=== PATIENT | male | born 1965 | race African-American/Black ===

== ENCOUNTER 2017-01-17 14:51 | Emergency (ER) | payer OTHER ==
[2017-01-17] MEDS ORDERED: Mag-Al 1200 mg/1200 mg/30 ML UDCUP ONE (15:13)
[2017-01-17] MEDS ORDERED: Famotidine/PF 20 mg/2ml Vial ONE (15:13)
[2017-01-17] MEDS ORDERED: Ondansetron HCl/PF 4 MG/2 ML Vial ONE (15:13)
[2017-01-17] MEDS ORDERED: Lidocaine Viscous Sol 2% 15 ml UD Cup ONE (15:13)
[2017-01-17 15:22] LABS: #Basophils 0.1 thou/uL (0.0-0.2); #Eosinphils 0.1 thou/uL (0.0-0.7); #Lymphocytes 1.8 thou/uL (1.20-3.40); #Monocytes 0.5 thou/uL (0.11-0.59); #Neutrophils 3.9 thou/uL (1.40-6.50); %Basophils 1.1 % (0.0-1.0); %Eosinophils 1.3 % (0.0-10.0); %Lymphocytes 28.2 % (21.0-51.0); %Monocytes 7.3 % (0.0-10.0); Hematocrit 40.5 % (42.0-52.0); Mean Platelet Volume 6.1 fL (7.4-10.4); Red Blood Cell (RBC) Count 4.19 mill/uL (4.70-6.10); White Blood Cell (WBC) Count 6.3 thou/uL (4.8-10.8)
[2017-01-17 15:43] LABS: ALT (SGPT) 10 U/L (8-55); AST (SGOT) 16 U/L (5-34); Acetaminophen Less than 6.0 mcg/mL (10.0-30.0); Alkaline Phosphatase 50 U/L (40-150); Anion Gap 14 mmol/L (10-20); BUN (Urea Nitrogen) 13 mg/dL (8.4-25.7); Bilirubin, Total 0.5 mg/dL (0.2-1.2); Calc. Creatinine Clearance 0 mL/min (70-130); Calcium 9.9 mg/dL (7.8-10.44); Carbon Dioxide 32 mmol/L (22-29); Chloride 94 mmol/L (98-107); Estimated GFR-MDRD 88; Globulin 3.4 g/dL (2.4-3.5); Salicylate Less than 8.0 mg/dL (15.0-30.0)
[2017-01-17] MEDS ORDERED: Ketorolac Tromethamine 30 MG/ML VIAL ONE (16:31)
[2017-01-17 16:33] LABS: Amphetamine Not Detected (NotDetected); Methadone Not Detected (NotDetected); Methamphetamine Not Detected (NotDetected)
--- NOTE | 2017-01-17 17:14 | CT ---
CT ABDOMEN AND PELVIS NONCONTRAST: History: Bilateral flank pain. Comparison: 06-19-16 FINDINGS: Each renal collecting system and ureter are decompressed without stone evident. Phleboliths and other vascular calcifications are present within the abdomen or pelvis. Lack of contrast limits evaluation for other abnormalities. Extensive motion artifact also limits det ail. Urinary bladder is decompressed. There is no evidence of bowel obstruction. A somewhat faint augustin cific density, 0.9 cm diameter, in the right lower quadrant appears to represent bowel content. No ad jacent inflammation is visible. No degenerative changes throughout the lumbar spine. IMPRESSION: 1. No CT evidence of urinary tract obstruction or calcification. Exam is limited with extensive motio n and lack of contrast. POS: [facility]
== END 2017-01-17 17:57 | disposition home or self-care (01) ==
LOC: ERS 14:51
DX: K52.9 Noninfective gastroenteritis and colitis, unspecified (principal); F20.9 Schizophrenia, unspecified; F32.9 Major depressive disorder, single episode, unspecified; F17.210 Nicotine dependence, cigarettes, uncomplicated; I10 Essential (primary) hypertension
CPT/HCPCS: 36415; 74176; 80053; 80306; 80307; 84443; 85025; 93005; 96361; 96372; 96374; 96375; J1885; J2405; S0028

== ENCOUNTER 2017-02-15 12:56 | Emergency (ER) | payer OTHER ==
[~2017-02-15 12:56] MED LIST: ISOVUE-370 76%-LOCM 1 ML ONE
[2017-02-15 13:49] LABS: Bilirubin Small (Negative); Blood, Urine Negative (Negative); Glucose, Urine (Dipstick) Negative (Negative); Ketone, Urine Negative (Negative); Nitrite Negative (Negative); Protein, Urine (Dipstick) 100 mg/dL (Neg-Trace)
[2017-02-15 13:51] LABS: Bacteria/HPF None Seen HPF (None Seen); Hyaline Casts/LPF 0-3 HYALINE CAST LPF (0-3 Hyaline); RBC/HPF 0-3 HPF (0-3); Squamous Epithelial 0-3 HPF (0-3); WBC/HPF 0-3 HPF (0-3)
[2017-02-15 13:52] LABS: #Basophils 0.1 thou/uL (0.0-0.2); #Eosinphils 0.1 thou/uL (0.0-0.7); #Lymphocytes 2.2 thou/uL (1.20-3.40); #Monocytes 0.6 thou/uL (0.11-0.59); #Neutrophils 3.9 thou/uL (1.40-6.50); %Basophils 1.1 % (0.0-1.0); %Eosinophils 1.7 % (0.0-10.0); %Lymphocytes 32.1 % (21.0-51.0); %Monocytes 8.1 % (0.0-10.0); Hematocrit 47.1 % (42.0-52.0); Mean Platelet Volume 7.3 fL (7.4-10.4); Red Blood Cell (RBC) Count 5.13 mill/uL (4.70-6.10); White Blood Cell (WBC) Count 6.9 thou/uL (4.8-10.8)
[2017-02-15 14:08] LABS: ALT (SGPT) 13 U/L (8-55); AST (SGOT) 22 U/L (5-34); Alkaline Phosphatase 53 U/L (40-150); Anion Gap 16 mmol/L (10-20); BUN (Urea Nitrogen) 25 mg/dL (8.4-25.7); Bilirubin, Total 0.8 mg/dL (0.2-1.2); Calc. Creatinine Clearance 0 mL/min (70-130); Calcium 10.8 mg/dL (7.8-10.44); Carbon Dioxide 30 mmol/L (22-29); Chloride 90 mmol/L (98-107); Estimated GFR-MDRD 61; Lipase 11 U/L (8-78); Protein, Total 9.3 g/dL (6.0-8.3)
[2017-02-15] MEDS ORDERED: Potassium Chloride 20 MEQ TAB ONE (17:23)
[2017-02-15] MEDS ORDERED: Ondansetron HCl/PF 4 MG/2 ML Vial ONE (17:36)
[2017-02-15] MEDS ORDERED: Milk Of Magnesia 30 ML UDCUP ONE (18:03)
[2017-02-15] MEDS ORDERED: Lidocaine Viscous Sol 2% 15 ml UD Cup ONE (18:03)
[2017-02-15] MEDS ORDERED: Sucralfate 1 GM/10 ML UDCUP ONE (19:12)
[2017-02-15 19:31] LABS: Amphetamine Not Detected (NotDetected); Methadone Not Detected (NotDetected); Methamphetamine Not Detected (NotDetected)
[2017-02-15] MEDS ORDERED: Acetaminophen 325 MG TAB ONE (21:18)
--- NOTE | 2017-02-15 22:43 | CT ---
CT OF THE ABDOMEN AND PELVIS WITH IV CONTRAST 02/15/17 PROVIDED CLINICAL HISTORY: Abdominal pain. FINDINGS: Comparison is made with the study dated 06/15/16. The visualized lung bases appear clear. Multiple small hypodensities are noted involving the liver most compatible with cysts and appearing i n general stable as compared with the prior study. The spleen, pancreas, kidneys, and adrenal glands demonstrate an unremarkable CT appearance. Regional bowel is suboptimally evaluated without enteric contrast. There is no evidence for bowel obs truction. There is no free fluid or free air apparent. A portion of a normal appearing appendix is se en. The osseous structures demonstrate no concerning osteoblastic or osteolytic lesions. Conspicuous degenerative changes are seen involving the left hip. IMPRESSION: No evidence for an acute process with limitations as above. POS: [facility]
== END 2017-02-16 00:35 | disposition home or self-care (01) ==
LOC: ERS 12:56
DX: N17.9 Acute kidney failure, unspecified (principal); F19.10 Other psychoactive substance abuse, uncomplicated; I10 Essential (primary) hypertension; F32.9 Major depressive disorder, single episode, unspecified; F20.9 Schizophrenia, unspecified; F17.210 Nicotine dependence, cigarettes, uncomplicated
CPT/HCPCS: 36415; 74177; 80053; 80306; 81003; 81015; 83605; 83690; 85025; 93005; 96361; 96374; J2405

== ENCOUNTER 2017-04-19 13:21 | Emergency (ER) | payer OTHER ==
[2017-04-19 14:59] LABS: #Basophils 0.1 thou/uL (0.0-0.2); #Lymphocytes 1.9 thou/uL (1.20-3.40); #Monocytes 0.5 thou/uL (0.11-0.59); #Neutrophils 4.3 thou/uL (1.40-6.50); %Basophils 1.2 % (0.0-1.0); %Eosinophils 0.7 % (0.0-10.0); %Lymphocytes 27.6 % (21.0-51.0); %Monocytes 7.2 % (0.0-10.0); %Neutrophils 63.4 % (42.0-75.0); Hemoglobin 14.1 g/dL (14.0-18.0); Mean Corpuscular HGB CONC 32.5 g/dL (32.0-36.0); Mean Corpuscular Hemoglobin 31.5 pg (27.0-31.0); Mean Corpuscular Volume 96.9 fl (80.0-94.0); Mean Platelet Volume 8.3 fL (7.4-10.4); Platelet Count 317 thou/uL (130-400); RBC Distribution Width 15.5 % (11.5-14.5); Red Blood Cell (RBC) Count 4.48 mill/uL (4.70-6.10); White Blood Cell (WBC) Count 6.7 thou/uL (4.8-10.8)
[2017-04-19 15:17] LABS: ALT (SGPT) 27 U/L (8-55); AST (SGOT) 32 U/L (5-34); Albumin 5.1 g/dL (3.5-5.0); Alkaline Phosphatase 58 U/L (40-150); Anion Gap 18 mmol/L (10-20); BUN (Urea Nitrogen) 12 mg/dL (8.4-25.7); Bilirubin, Total 0.7 mg/dL (0.2-1.2); Calc. Creatinine Clearance 0 mL/min (70-130); Calcium 11.7 mg/dL (7.8-10.44); Carbon Dioxide 28 mmol/L (22-29); Chloride 96 mmol/L (98-107); Estimated GFR-MDRD 79; Globulin 3.6 g/dL (2.4-3.5); Glucose 109 mg/dL (70-105); Lipase 10 U/L (8-78); Potassium 3.3 mmol/L (3.5-5.1); Protein, Total 8.7 g/dL (6.0-8.3); Sodium 139 mmol/L (136-145)
== END 2017-04-19 14:08 | disposition left against medical advice (07) ==
LOC: ERS 13:21
DX: Z53.21 Procedure and treatment not carried out due to patient leaving prior to being seen by health care provider (principal)
CPT/HCPCS: 36415; 80053; 83690; 85025; 93005

== ENCOUNTER 2017-04-29 12:52 | Emergency (ER) | payer OTHER ==
[2017-04-29] MEDS ORDERED: Ketorolac Tromethamine 30 MG/ML VIAL ONE (13:11)
[2017-04-29] MEDS ORDERED: diphenhydrAMINE 50 MG/ML VIAL ONE (13:11)
[2017-04-29] MEDS ORDERED: Metoclopramide HCl 10 MG/2 ML VIAL ONE (13:11)
[2017-04-29 13:45] LABS: #Basophils 0.1 thou/uL (0.0-0.2); #Eosinphils 0.1 thou/uL (0.0-0.7); #Lymphocytes 2.1 thou/uL (1.20-3.40); #Monocytes 0.4 thou/uL (0.11-0.59); #Neutrophils 2.5 thou/uL (1.40-6.50); %Basophils 1.8 % (0.0-1.0); %Eosinophils 2.3 % (0.0-10.0); %Lymphocytes 39.6 % (21.0-51.0); %Monocytes 8.3 % (0.0-10.0); Hemoglobin 13.2 g/dL (14.0-18.0); Mean Corpuscular HGB CONC 32.7 g/dL (32.0-36.0); Mean Corpuscular Volume 97.9 fl (80.0-94.0); Mean Platelet Volume 7.1 fL (7.4-10.4); Platelet Count 311 thou/uL (130-400); RBC Distribution Width 14.2 % (11.5-14.5); Red Blood Cell (RBC) Count 4.11 mill/uL (4.70-6.10); White Blood Cell (WBC) Count 5.3 thou/uL (4.8-10.8)
[2017-04-29 14:05] LABS: ALT (SGPT) 9 U/L (8-55); AST (SGOT) 18 U/L (5-34); Albumin 4.5 g/dL (3.5-5.0); Alkaline Phosphatase 47 U/L (40-150); Anion Gap 13 mmol/L (10-20); BUN (Urea Nitrogen) 9 mg/dL (8.4-25.7); Bilirubin, Total 0.6 mg/dL (0.2-1.2); Calc. Creatinine Clearance 0 mL/min (70-130); Calcium 9.7 mg/dL (7.8-10.44); Carbon Dioxide 31 mmol/L (22-29); Chloride 93 mmol/L (98-107); Estimated GFR-MDRD 85; Globulin 3.1 g/dL (2.4-3.5); Glucose 90 mg/dL (70-105); Lipase 9 U/L (8-78); Protein, Total 7.6 g/dL (6.0-8.3); Sodium 134 mmol/L (136-145)
[2017-04-29 14:16] LABS: Potassium 2.7 mmol/L (3.5-5.1)
== END 2017-04-29 14:50 | disposition home or self-care (01) ==
LOC: ERS 12:52
DX: R10.9 Unspecified abdominal pain (principal); E87.6 Hypokalemia; I10 Essential (primary) hypertension; F32.9 Major depressive disorder, single episode, unspecified; F20.9 Schizophrenia, unspecified; F17.210 Nicotine dependence, cigarettes, uncomplicated
CPT/HCPCS: 80053; 83690; 85025; 96365; 96375; J1200; J1885; J2765

== ENCOUNTER 2017-07-23 20:33 | Inpatient (IN) | payer OTHER ==
[2017-07-23 21:01] LABS: Bilirubin Small (Negative); Blood, Urine Small (Negative); Clarity CLOUDY (Clear); Glucose, Urine (Dipstick) Negative (Negative); Leukocyte Negative (Negative); Nitrite Negative (Negative); Protein, Urine (Dipstick) 100 mg/dL (Neg-Trace); Specific Gravity, Urine 1.022 (1.002-1.036); Urobilinogen 0.2 mg/dL (0.2-1.0)
[2017-07-23 21:02] LABS: Bacteria/HPF None Seen HPF (None Seen)
[2017-07-23 21:05] LABS: Pathc Cast-AUWi Flag 19.62 (0-2.49)
[2017-07-23 21:14] LABS: #Lymphocytes 1.8 thou/uL (1.20-3.40); #Monocytes 1.3 thou/uL (0.11-0.59); #Neutrophils 13.2 thou/uL (1.40-6.50); %Basophils 0.3 % (0.0-1.0); %Eosinophils 0.1 % (0.0-10.0); %Lymphocytes 11.2 % (21.0-51.0); %Monocytes 7.7 % (0.0-10.0); %Neutrophils 80.7 % (42.0-75.0); Hemoglobin 15.5 g/dL (14.0-18.0); Mean Corpuscular HGB CONC 33.8 g/dL (32.0-36.0); Mean Corpuscular Hemoglobin 31.7 pg (27.0-31.0); Mean Corpuscular Volume 93.7 fl (80.0-94.0); Mean Platelet Volume 7.3 fL (7.4-10.4); Platelet Count 324 thou/uL (130-400); RBC Distribution Width 14.6 % (11.5-14.5); Red Blood Cell (RBC) Count 4.89 mill/uL (4.70-6.10); White Blood Cell (WBC) Count 16.4 thou/uL (4.8-10.8)
[2017-07-23 21:34] LABS: ALT (SGPT) 14 U/L (8-55); AST (SGOT) 38 U/L (5-34); Albumin 5.4 g/dL (3.5-5.0); Alkaline Phosphatase 74 U/L (40-150); Anion Gap 22 mmol/L (10-20); BUN (Urea Nitrogen) 35 mg/dL (8.4-25.7); Bilirubin, Total 1.6 mg/dL (0.2-1.2); Calc. Creatinine Clearance 0 mL/min (70-130); Calcium 10.4 mg/dL (7.8-10.44); Carbon Dioxide 23 mmol/L (22-29); Chloride 92 mmol/L (98-107); Estimated GFR-MDRD 25; Globulin 4.2 g/dL (2.4-3.5); Glucose 125 mg/dL (70-105); Lipase 10 U/L (8-78); Potassium 3.5 mmol/L (3.5-5.1); Protein, Total 9.6 g/dL (6.0-8.3); Sodium 133 mmol/L (136-145)
[2017-07-23] MEDS ORDERED: Morphine 10 MG/ML VIAL ONE (22:43)
--- NOTE | 2017-07-23 22:43 | RAD ---
FRONTAL VIEW CHEST: INDICATIONS: Abdominal pain. COMPARISON: 08/26/2009 FINDINGS: The lungs are mildly hyperinflated with interstitial prominence bilaterally. There is no lobar conso lidation, effusion, or pneumothorax. The cardiac silhouette is normal in size. No free air is seen beneath the hemidiaphragms. IMPRESSION: No acute process visualized. POS: [facility]
[2017-07-23] MEDS ORDERED: Ondansetron ODT 8 MG TAB ONE (22:44)
--- NOTE | 2017-07-24 01:41 | PDOC.FPRHP ---
- History of Present Illness Chief Complaint: Abdominal pain History of Present Illness: 52 yo M w/hx of schizophrenia here with chief complaint of abdominal pain that started today. At the time of this H&P pt was A&O x4, however did not answer all questions appropriately. He states that he has been compliant with his psych meds. Regarding his visit to the ED, he says that it has been 5 days since he has eaten or had a BM and that this happens often. He denies n/v, but complains of abdominal pain all over that is similar to the pain for which he has been seen in the past. There are no exacerbating or remitting factors. He denies any other associated symptoms to include fever, chills, blood or pain with urination , or increased frequency. In the ED it was noted that the patient has a significantly elevated Cr above baseline. He states that he did spend a significant amount of time outside in the past day, but cannot remember if he drank any water. He denies sleeping outside or on a hard surface. At the time of admission CK is pending. - Allergies/Adverse Reactions Allergies Allergy/AdvReac Type Severity Reaction Status Date / Time divalproex sodium Allergy Verified 02/05/13 01:09 [From Depakote] risperidone [From Risperdal] Allergy Verified 02/05/13 01:09 valproic acid Allergy Verified 07/24/17 03:54 - Home Medications Medication Instructions Recorded Confirmed Type Benztropine Mesylate [Cogentin] 2 mg PO BID 07/24/17 07/24/17 History Buspirone HCl [busPIRone HCl] 30 mg PO BID 07/24/17 07/24/17 History Lurasidone HCl [Latuda] 120 mg PO HS 07/24/17 07/24/17 History OLANZapine [Olanzapine] 10 mg PO HS 07/24/17 07/24/17 History - History PMHx: pschizophrenia PSHx: unk FHx: unk Social: Pt denies etoh Admits to 0.5 packs per day Admits to occasional marijuana use - Review of Systems ROS unobtainable: other (Unclear how accurate history is due to periodic innappropriate answers) General: denies: fever/chills, weight/appetite/sleep changes Eyes: denies: vision changes ENT: denies: nasal congestion, rhinorrhea Respiratory: denies: cough, congestion, shortness of breath Cardiovascular: denies: chest pain Gastrointestinal: reports: constipation, abdominal pain. denies: nausea, vomiting, GI bleeding Genitourinary: denies: incontinence, dysuria Skin: denies: rashes, lesions Musculoskeletal: denies: pain, tenderness Neurological: denies: numbness, syncope Psychological: denies: anxiety, depression - Vital signs BP: 153/89 HR: 85 RR: 20 Tmax: 98.6 Pox: 95% on RA Wt: 65.7 kg - Physical Exam Constitutional: NAD, awake, alert and oriented (periodic innapproprate answers) HEENT: normocephalic and atraumatic, EOMI, grossly normal vision, grossly normal hearing Neck: FROM, trachea midline Chest: no-tender to palpation Heart: RRR, other (systolic murmur) Lungs: CTAB, no respiratory distress Abdomen: soft, bowel sounds present, other (TTP epigastric and RUQ) Musculoskeletal: normal structure, normal tone Neurological: CN II-XII intact, normal sensation Skin: no rash/lesions, good turgor Heme/Lymphatic: no unusual bruising or bleeding Psychiatric: other (normal affect, poor insight, unclear as to if memory if accurate) FMR H&P: Results - Labs Result Diagrams: 07/24/17 03:19 07/24/17 03:19 Lab results: WBC 16.4 thou/uL (4.8-10.8) H 07/23/17 21:05 Hgb 15.5 g/dL (14.0-18.0) 07/23/17 21:05 Hct 45.8 % (42.0-52.0) 07/23/17 21:05 MCV 93.7 fl (80.0-94.0) 07/23/17 21:05 Plt Count 324 thou/uL (130-400) 07/23/17 21:05 Neutrophils % 80.7 % (42.0-75.0) H 07/23/17 21:05 Sodium 133 mmol/L (136-145) L 07/23/17 21:05 Potassium 3.5 mmol/L (3.5-5.1) 07/23/17 21:05 Chloride 92 mmol/L (98-107) L 07/23/17 21:05 Carbon Dioxide 23 mmol/L (22-29) 07/23/17 21:05 BUN 35 mg/dL (8.4-25.7) H 07/23/17 21:05 Creatinine 3.18 mg/dL (0.6-1.3) H 07/23/17 21:05 Glucose 125 mg/dL (70-105) H 07/23/17 21:05 Calcium 10.4 mg/dL (7.8-10.44) 07/23/17 21:05 Total Bilirubin 1.6 mg/dL (0.2-1.2) H 07/23/17 21:05 AST 38 U/L (5-34) H 07/23/17 21:05 ALT 14 U/L (8-55) 07/23/17 21:05 Alkaline Phosphatase 74 U/L (40-150) 07/23/17 21:05 Serum Total Protein 9.6 g/dL (6.0-8.3) H 07/23/17 21:05 Albumin 5.4 g/dL (3.5-5.0) H 07/23/17 21:05 Lipase 10 U/L (8-78) 07/23/17 21:05 Urine Ketones Negative mg/dL (Negative) 07/23/17 20:46 Urine Blood Small (Negative) H 07/23/17 20:46 Urine Nitrite Negative (Negative) 07/23/17 20:46 Ur Leukocyte Esterase Negative (Negative) 07/23/17 20:46 Urine RBC 4-6 HPF (0-3) 07/23/17 20:46 Urine WBC 4-6 HPF (0-3) H 07/23/17 20:46 Ur Squamous Epith Cells 7-10 HPF (0-3) H 07/23/17 20:46 Urine Bacteria None Seen HPF (None Seen) 07/23/17 20:46 - Radiology Interpretation Chest x-ray Status: report reviewed by me (No acute process) CT scan - abdomen Status: pending FMR H&P: A/P - Problem List (1) RUTH (acute kidney injury) Current Visit: Yes Status: Acute Priority: High Code(s): N17.9 - ACUTE KIDNEY FAILURE, UNSPECIFIED (2) Abdominal pain Current Visit: Yes Status: Acute Priority: High Code(s): R10.9 - UNSPECIFIED ABDOMINAL PAIN Qualifiers: Abdominal location: generalized Qualified Code(s): R10.84 - Generalized abdominal pain (3) Paranoid schizophrenia Current Visit: Yes Status: Chronic Priority: Medium Code(s): F20.0 - PARANOID SCHIZOPHRENIA - Plan Acute kidney injury - Admit to medical. - BUN/creatine 11, consistent with intrinsic disease. Order studies for FeNa and renal US. - CK now 801, non c/w rhabdo - IVF - Repeat BMP in am Abdominal pain - No clear etiology - RUQ US due to tenderness, elevated bili and LFT Elevated LFT and bili - HIV, RPR, hepatitis panel - RUQ us as above Schizophrenia - Home meds Htn - no historical dx of chronic HTN. Not currently on meds. Monitor and treat as indicated PPx - SCD Code Full Diet regular Dispo: Pt is stable. Will continue to work up as above. Likely length of stay 2- 3 days FMR H&P: Upper Level - Pertinent history 52 year old male who presented to the ED for abdominal pain x3 days. Associated with nausea and vomiting. He told the ER physicians he had only been sick a couple of days but reported to me it has gone on for a couple of weeks. He reports no bowel movement for 5 days. He reports he was outside in the heat for a very long period of time today Of note, the patient is a poor historian and history is somewhat limited. PMH includes schizophrenia and HTN Social Hx - 1/2 ppd. Occasional EtOH and marijuana We were contacted by the ED to admit the patient because her creatinine increased from 1.09 in April to 3.18 today. - Pertinent findings Vital Signs Tmax 98.5 RR 16 HR 85 BP 153/112 O2 sats 93% on RA Wt 65.77 kg Physical Exam General: NAD, AAOx4. Eyes: EOMI, PERRL, nonicteric ENT: MMM. Oropharynx clear CV: RRR. No m/r/g. Pulses full and equal in all 4 extremities Resp: CTAB. No wheezing, rales, or rhonchi. Breathing unlabored Abd: Soft. Non-distended. Tender in RUQ and epigastric regions. No guarding or rebound. BS+ in all 4 quadrants Extremities: No clubbing, cyanosis, or edema. Equal movements in all extremities. Skin: No rash or ulcer. No palpable lesions Neuro: CII - XII intact. No focal deficits Psych: Patient alert and cooperative. Behavior appropriate - Plan Date/Time: 07/24/17 0141 ICrispin DO, have evaluated this patient and agree with findings/plan as outlined by fashion intern resident. Pertinent changes/additions are listed here. 52 year old male presents with: 1) Acute kidney injury - Admit to medical. BUN/creatine 11. Will get urine studies, renal ultrasound, HIV, RPR, hepatitis panel CK is 801 - not consistent with rhabdo but indicative of volume depletion. Will give iv fluids and repeat CK and BMP 2) Abdominal pain - No clear etiology. Will get RUQ US due to tenderness 3) Schizophrenia - Home meds 4) Htn - not currently on meds. Monitor and treat as indicated 6) Elevated bilirubin - Repeat CMP after fluids. RUQ US Attending Addendum - Attending Addendum Date/Time: 07/24/17 0732 I personally evaluated the patient and discussed the management with Dr. Velazquez I agree with the History, Examination, Assessment and Plan documented above with any addition or exceptions noted below. 52 yo AAM with history of SZP, HTN patient present ER with several days to weeks abdominal pain,N/V, no BM several days and found with elevated RFTs and CK consistent with heat exposure volume depletion r/o intrinsic renal disease. Patient endorsing active addiction to cocaine and alcohol use followed at [facility]. Patient has abdominal CT and US ordered, withdrawal precautions, continue IV re-hydration and repeat BMP ,CK today. Patient list active medication as Latuda and serroquel no BP RX.
[2017-07-24] MEDS ORDERED: Acetaminophen 325 MG TAB PO PRN (03:06)
[2017-07-24] MEDS ORDERED: Ondansetron HCl/PF 4 MG/2 ML Vial IVP PRN (03:06)
[2017-07-24] MEDS ORDERED: Ondansetron ODT 4 MG TAB SL PRN (03:06)
[2017-07-24 03:27] LABS: #Lymphocytes 1.3 thou/uL (1.20-3.40); #Monocytes 0.7 thou/uL (0.11-0.59); #Neutrophils 9.9 thou/uL (1.40-6.50); %Basophils 0.3 % (0.0-1.0); %Eosinophils 0.1 % (0.0-10.0); %Lymphocytes 11.1 % (21.0-51.0); %Monocytes 6.1 % (0.0-10.0); %Neutrophils 82.4 % (42.0-75.0); Hemoglobin 13.8 g/dL (14.0-18.0); Mean Corpuscular HGB CONC 34.4 g/dL (32.0-36.0); Mean Corpuscular Hemoglobin 32.8 pg (27.0-31.0); Mean Corpuscular Volume 95.5 fl (80.0-94.0); Mean Platelet Volume 7.4 fL (7.4-10.4); Platelet Count 270 thou/uL (130-400); RBC Distribution Width 14.6 % (11.5-14.5); Red Blood Cell (RBC) Count 4.21 mill/uL (4.70-6.10)
[2017-07-24 03:38] VITALS: BMI 21.4
[2017-07-24] MEDS ORDERED: Labetalol HCl 100 MG/20 ML VIAL SLOW IVP PRN (03:51)
[2017-07-24 03:56] LABS: ALT (SGPT) 13 U/L (8-55); AST (SGOT) 35 U/L (5-34); Albumin 4.6 g/dL (3.5-5.0); Alkaline Phosphatase 62 U/L (40-150); Anion Gap 16 mmol/L (10-20); BUN (Urea Nitrogen) 37 mg/dL (8.4-25.7); Bilirubin, Total 1.1 mg/dL (0.2-1.2); Calc. Creatinine Clearance 32 mL/min (70-130); Calcium 8.7 mg/dL (7.8-10.44); Carbon Dioxide 26 mmol/L (22-29); Chloride 96 mmol/L (98-107); Estimated GFR-MDRD 36; Globulin 3.3 g/dL (2.4-3.5); Glucose 105 mg/dL (70-105); Potassium 3.5 mmol/L (3.5-5.1); Protein, Total 7.9 g/dL (6.0-8.3); Sodium 134 mmol/L (136-145)
[2017-07-24 04:02] LABS: Creatinine, Urine 341.89 mg/dL (63-166)
[2017-07-24] MEDS ORDERED: hydrALAZINE 20 MG/ML VIAL SLOW IVP PRN (04:02)
[2017-07-24 04:04] LABS: Amphetamine Not Detected (NotDetected); Barbiturates Screen Not Detected (NotDetected); Benzodiazepine Screen Not Detected (NotDetected); Cocaine Metabolite Screen Detected (NotDetected); Medtox Control Line Valid? VALID (VALID); Medtox Reader # READER 4; Methadone Not Detected (NotDetected); Methamphetamine Not Detected (NotDetected); Opiate Screen Not Detected (NotDetected); Oxycodone Screen Not Detected (NotDetected); Phencyclidine (PCP) Not Detected (NotDetected); THC/Cannabinoid Screen Detected (NotDetected); Tricyclic Screen Detected (NotDetected)
[2017-07-24 04:15] LABS: HIV (1/2) Antibody/Antigen Non-Reactive (NonReactive); HIV 1/2 INDEX 0.11 S/CO (<1.00); Hep A IgM AB Non-Reactive (NonReactive); Hep C IgG Ab Non-Reactive (NonReactive); Hep C Index 0.09 S/CO (0-0.79)
[2017-07-24] MEDS: Sodium Chloride 0.9% 1,000 ML IV SCH ×5 (04:28→20:19)
--- NOTE | 2017-07-24 07:41 | CT ---
CT OF THE ABDOMEN AND PELVIS WITHOUT CONTRAST: COMPARISON: Reference is made to 02/15/17 exam. INDICATION: Abdominal pain. FINDINGS: No significant abnormality at the imaged lung bases. There is moderate distention of the gallbladder . Spleen is small in volume. No urolithiasis or obstructive uropathy. Vague subcentimeter hypodens ity of the posterior segment right hepatic lobe is too small to further characterize. Additional sma ll hypodensities are also interspersed throughout the medial and lateral segments left hepatic lobe, incompletely characterized. The bowel is incompletely assessed without IV or enteric contrast. No p neumoperitoneum or significant ascites. There is colonic diverticulosis. Vascular calcification and osseous degenerative change present. IMPRESSION: 1. No urolithiasis or obstructive uropathy. 2. Moderate distention of the gallbladder. Correlate clinically. 3. Evaluation otherwise limited without the presence of IV or enteric contrast. POS: [facility]
[2017-07-24] MEDS ORDERED: Bisacodyl 10 MG SUPP PR PRN (07:49)
[2017-07-24] MEDS: busPIRone HCl 10 MG TAB PO SCH ×2 (08:37→20:14)
[2017-07-24] MEDS: Benztropine 1 MG TAB PO SCH ×2 (08:38→20:14)
--- NOTE | 2017-07-24 08:43 | ULT ---
RIGHT UPPER QUADRANT ULTRASOUND: HISTORY: Right upper quadrant pain. COMPARISON: None. TECHNIQUE: Utilizing a Multihertz transducer, sonographic imaging of the right upper quadrant was performed in t he longitudinal and transverse plane. FINDINGS: Hepatic parenchyma has a normal echotexture. No hepatic masses or intrahepatic biliary dilatation. The contour of the hepatic margin is maintained. The common bile duct diameter is 0.6 cm. No sonographic evidence of cholelithiasis, gallbladder wall thickening, or pericholecystic fluid. Ne gative Bhardwaj's sign. RIGHT KIDNEY: No hydronephrosis. 3.7 x 10.9 x 5.5 cm. Limited evaluation of the pancreas. IMPRESSION: No sonographic evidence of cholelithiasis or cholecystitis. POS: [facility]
[2017-07-24] MEDS: Acetaminophen 325 MG TAB PO PRN ×2 (10:18→20:14)
[2017-07-24] MEDS: Docusate 100 MG CAP PO SCH ×2 (10:23→20:14)
[2017-07-24] MEDS ORDERED: Diazepam 5 MG TAB PO PRN (10:39)
[2017-07-24] MEDS ORDERED: Thiamine HCl 200 MG/2 ML VIAL IM SCH (10:45)
[2017-07-24] MEDS ORDERED: Diazepam 5 MG TAB PO SCH (10:45)
[2017-07-24] MEDS ORDERED: Dicyclomine 10 MG CAP PO SCH (11:15)
[2017-07-24] MEDS: OLANZapine 5 MG TAB PO SCH (20:14)
[2017-07-24] MEDS ORDERED: Lurasidone HCl 40 MG TABLET PO SCH (21:00)
[2017-07-25] MEDS: Acetaminophen 325 MG TAB PO PRN ×2 (00:05→07:20)
[2017-07-25] MEDS ORDERED: Ondansetron ODT 4 MG TAB SL PRN ×2 (00:41→13:00)
[2017-07-25] MEDS: Sodium Chloride 0.9% 1,000 ML IV SCH ×5 (02:42→21:04)
[2017-07-25] MEDS ORDERED: Diazepam 5 MG TAB PO PRN (04:00)
[2017-07-25 05:41] LABS: #Basophils 0.1 thou/uL (0.0-0.2); #Lymphocytes 2.8 thou/uL (1.20-3.40); #Monocytes 0.7 thou/uL (0.11-0.59); #Neutrophils 4.6 thou/uL (1.40-6.50); %Basophils 1.1 % (0.0-1.0); %Eosinophils 0.4 % (0.0-10.0); %Lymphocytes 34.5 % (21.0-51.0); %Monocytes 8.2 % (0.0-10.0); %Neutrophils 55.9 % (42.0-75.0); Hemoglobin 11.6 g/dL (14.0-18.0); Mean Corpuscular HGB CONC 33.6 g/dL (32.0-36.0); Mean Corpuscular Hemoglobin 32.4 pg (27.0-31.0); Mean Corpuscular Volume 96.4 fl (80.0-94.0); Mean Platelet Volume 7.5 fL (7.4-10.4); Platelet Count 210 thou/uL (130-400); RBC Distribution Width 14.2 % (11.5-14.5); Red Blood Cell (RBC) Count 3.57 mill/uL (4.70-6.10); White Blood Cell (WBC) Count 8.2 thou/uL (4.8-10.8)
[2017-07-25 06:18] LABS: Anion Gap 10 mmol/L (10-20); BUN (Urea Nitrogen) 14 mg/dL (8.4-25.7); Calc. Creatinine Clearance 77 mL/min (70-130); Calcium 7.9 mg/dL (7.8-10.44); Carbon Dioxide 23 mmol/L (22-29); Chloride 106 mmol/L (98-107); Estimated GFR-MDRD Greater than 90; Glucose 85 mg/dL (70-105); Potassium 3.5 mmol/L (3.5-5.1); Sodium 135 mmol/L (136-145)
[2017-07-25] MEDS: Ziprasidone 20 MG VIAL IM PRN ×3 (09:22→14:48)
[2017-07-25] MEDS ORDERED: Sodium Chloride 0.9% 1,000 ML IV SCH (10:34)
[2017-07-25] MEDS: Multivitamin W/ Minerals 1 TAB PO SCH (10:46)
[2017-07-25] MEDS: Magnesium Oxide 400 MG TAB PO SCH (10:47)
[2017-07-25] MEDS: Folic Acid 1 MG TAB PO SCH (10:47)
--- NOTE | 2017-07-25 10:47 | PDOC.FM ---
- Subjective Subjective: Patient agitated this morning due to abdominal pain and nausea. He believes something is inside his stomach causing this pain. He endorses retching this AM with no emesis at this time. Per nursing, he had an ASE of 12 overnight and received 10mg Valium with a slight decrease in agitation. - Objective MAR Reviewed: Yes Vital Signs & Weight: Vital Signs (12 hours) Temp Pulse Resp BP BP Pulse Ox 07/25/17 08:00 97.9 F 104 H 14 135/98 H 99 07/25/17 00:10 98.9 F 86 20 164/94 H Weight Weight 62.006 kg I&O: 07/24/17 07/25/17 07/26/17 06:59 06:59 06:59 Intake Total 5400 Balance 5400 Result Diagrams: 07/25/17 05:08 07/25/17 05:08 Phys Exam - Physical Examination mild distress; holding stomach and grimacing HEENT: moist MMs Respiratory: no wheezing, no rales Cardiovascular: RRR, no significant murmur Gastrointestinal: soft, non-tender, no distention no peritoneal signs Musculoskeletal: no edema Neurological: moves all 4 limbs Deviation from normal: agitated; minimal eye contact Skin: no rash Dx/Plan (1) RUTH (acute kidney injury) Code(s): N17.9 - ACUTE KIDNEY FAILURE, UNSPECIFIED Status: Acute Plan: -Cr has trended down to 0.96 this morning, from 3.18 on admission -CK remains elevated >1000 -bolus 1L and continue IVF @ 250cc/hr -urine studies show a pre-renal etiology -he endorses minimal fluid intake over the last several days despite being outside for a prolonged period of time (2) Abdominal pain Code(s): R10.9 - UNSPECIFIED ABDOMINAL PAIN Status: Chronic Qualifiers: Abdominal location: generalized Qualified Code(s): R10.84 - Generalized abdominal pain Plan: -multiple admissions for the same complaint -RUQ US is negative for cholelithiasis or cholecystitis; bilirubin has trended down to 1.1; CT abdomen w/o contrast is normal, outside of a moderately distended gallbladder -cannabinoid hyperemesis syndrome is a possibility -advised against using marijuana (3) Paranoid schizophrenia Code(s): F20.0 - PARANOID SCHIZOPHRENIA Status: Chronic Plan: -continue/restart cogentin, Latuda, Zyprexa, Buspar -patient appears to be withdrawing this morning although the situation is complicated by his past psychiatric history (4) Polysubstance abuse Code(s): F19.10 - OTHER PSYCHOACTIVE SUBSTANCE ABUSE, UNCOMPLICATED Status: Acute Plan: -continue ASE protocol -patient not responding to Valium -Geodon 10mg q2h PRN (5) Self induced vomiting Code(s): F50.8 - OTHER EATING DISORDERS * DO NOT USE * Status: Acute Plan: -witnessed by nursing staff - Plan Plan: -bolus 1L and continue IVF at 250cc/hr -geodon PRN -consult MHMR once medically stable
[2017-07-25] MEDS ORDERED: Ondansetron ODT 8 MG TAB SL PRN (12:42)
[2017-07-25] MEDS ORDERED: Ondansetron HCl/PF 4 MG/2 ML Vial IVP PRN (12:42)
[2017-07-25] MEDS ORDERED: Dicyclomine 10 MG CAP PO PRN (12:43)
[2017-07-25] MEDS ORDERED: Ondansetron ODT 4 MG TAB PO PRN (12:46)
[2017-07-25] MEDS ORDERED: Sterile Water 10 ML VIAL FS PRN (14:21)
--- NOTE | 2017-07-25 15:31 | PDOC.EVN ---
Event Note - Event Note Event Note: Called to pts bedside for severe agitation. Pt noted be thrashing in his bed, hitting himself in the face, and yelling loudly disrupting nearby patients. He yelled that his stomach hurt, but would not comply with providers exam or history questions to allow further investigation. Of note, there was a normal CT a/p and RUQ US with normal labs aside from an elevated CK. VSS with BP 120s/ 90s and pulse in 60s. Pt given zofran, tylenol and bentyl for pain; for which he refused. Nursing staff concerned that pt continues to be a danger to himself and others around him. Given 10mg IM Geodon for acute psychosis and agitation and soft 2-point restraints ordered. Pending downtrending CK prior to transferring care to [facility].
[2017-07-25] MEDS ORDERED: Lidocaine 2% Viscous Solution 20 ML, Aluminum & Magnesium Hydroxide 30 ML, Donnatal Eli... SSW SCH (15:45)
[2017-07-25] MEDS ORDERED: diphenhydrAMINE 50 MG/ML VIAL IVP SCH ×2 (15:45→21:00)
--- NOTE | 2017-07-25 16:01 | ADD-PRG ---
ADDENDUM This is an addendum to the note of Dr. Augustin Wilson. Mr. Gu is a 52-year-old man with a history of schizophrenia who was admitted with abdominal pain and substance abuse. During this morning, he became very agitated and was treated appropriately wit h antipsychotics and Ativan. He is now resting quietly in no acute distress. Soon as he is medicall y stable, we will consult with [facility].
--- NOTE | 2017-07-25 16:01 | ADD-PRG ---
DATE OF SERVICE: 07/25/2017 This is an addendum. Mr. Gu also had developed acute kidney injury with an elevated creatinine which has now dropped to below 1. He has evidence of rhabdomyolysis which we are treating vigorously with fluid resuscitat ion.
[2017-07-25] MEDS: Benztropine 1 MG TAB PO SCH (17:07)
[2017-07-25] MEDS: busPIRone HCl 10 MG TAB PO SCH (17:07)
[2017-07-25] MEDS: Docusate 100 MG CAP PO SCH (17:07)
[2017-07-25 17:25] LABS: Syphilis Antibody Nonreactive (Nonreactive)
[2017-07-25 17:26] LABS: Thyroid Stimulating Hormone 0.7664 uIU/mL (0.35-4.94)
[2017-07-25] MEDS: Lorazepam 2 MG/ML VIAL SLOW IVP PRN (17:36)
[2017-07-25 17:45] LABS: HBSAg Index 0.18 S/CO (0-0.99); Hep B Surf AB Non-Reactive (NonReactive); Hep B Surf Ag Non-Reactive S/CO (NonReactive)
[2017-07-25] MEDS ORDERED: Metoclopramide HCl 10 MG/2 ML VIAL IVP PRN (18:43)
[2017-07-25] MEDS ORDERED: Lurasidone HCl 40 MG TABLET PO SCH (21:00)
[2017-07-26] MEDS: busPIRone HCl 10 MG TAB PO SCH ×2 (00:23→11:16)
[2017-07-26] MEDS: Docusate 100 MG CAP PO SCH ×2 (00:26→11:11)
[2017-07-26] MEDS: Benztropine 1 MG TAB PO SCH ×2 (00:26→11:10)
[2017-07-26] MEDS: OLANZapine 5 MG TAB PO SCH (00:26)
[2017-07-26] MEDS: Nicotine 21 MG PATCH TD SCH ×2 (00:30→07:19)
[2017-07-26 00:56] VITALS: BP 138/84; TEMP 98.2
[2017-07-26] MEDS: Lorazepam 2 MG/ML VIAL SLOW IVP PRN ×3 (01:12→11:45)
[2017-07-26] MEDS: Ziprasidone 20 MG VIAL IM PRN (02:54)
[2017-07-26] MEDS: Sodium Chloride 0.9% 1,000 ML IV SCH ×3 (03:08→09:45)
[2017-07-26 06:57] LABS: Anion Gap 11 mmol/L (10-20); BUN (Urea Nitrogen) 5 mg/dL (8.4-25.7); CK (CPK) 719 U/L (30-200); Calc. Creatinine Clearance 81 mL/min (70-130); Calcium 8.4 mg/dL (7.8-10.44); Carbon Dioxide 24 mmol/L (22-29); Chloride 104 mmol/L (98-107); Estimated GFR-MDRD Greater than 90; Glucose 93 mg/dL (70-105); Potassium 3.3 mmol/L (3.5-5.1); Sodium 136 mmol/L (136-145)
--- NOTE | 2017-07-26 08:46 | PDOC.FM ---
- Subjective Subjective: Patient in shower this morning. He received Ativan and Geodon during the course of the night for agitation. - Objective MAR Reviewed: Yes Vital Signs & Weight: Vital Signs (12 hours) Temp Pulse Resp BP BP Pulse Ox 07/26/17 07:43 98.2 F 72 22 H 07/26/17 00:00 98.2 F 72 22 H 138/84 138/84 98 Weight Weight 62.006 kg I&O: 07/25/17 07/26/17 07/27/17 06:59 06:59 06:59 Intake Total 5400 7125 Output Total 500 Balance 5400 6625 Result Diagrams: 07/25/17 05:08 07/26/17 06:24 Dx/Plan (1) RUTH (acute kidney injury) Code(s): N17.9 - ACUTE KIDNEY FAILURE, UNSPECIFIED Status: Acute Plan: -Cr has trended down to 0.91 this morning, from 3.18 on admission -CK has trended down to 719 -continue IVF @ 250cc/hr -urine studies show a pre-renal etiology -he endorses minimal fluid intake over the last several days despite being outside for a prolonged period of time (2) Abdominal pain Code(s): R10.9 - UNSPECIFIED ABDOMINAL PAIN Status: Chronic Qualifiers: Abdominal location: generalized Qualified Code(s): R10.84 - Generalized abdominal pain Plan: -multiple admissions for the same complaint -RUQ US is negative for cholelithiasis or cholecystitis; bilirubin has trended down to 1.1; CT abdomen w/o contrast is normal, outside of a moderately distended gallbladder -cannabinoid hyperemesis syndrome is a possibility -advised against using marijuana (3) Paranoid schizophrenia Code(s): F20.0 - PARANOID SCHIZOPHRENIA Status: Chronic Plan: -continue/restart cogentin, Latuda, Zyprexa, Buspar -he has been agitated over the last 36 hours requiring PRN medications -MHMR consulted since he is now medically stable (4) Polysubstance abuse Code(s): F19.10 - OTHER PSYCHOACTIVE SUBSTANCE ABUSE, UNCOMPLICATED Status: Acute Plan: -continue ASE protocol -patient responding to Ativan -Geodon 10mg q2h PRN (5) Self induced vomiting Code(s): F50.8 - OTHER EATING DISORDERS * DO NOT USE * Status: Acute Plan: -witnessed by nursing staff - Plan Plan: -[facility] consult for placement due to uncontrolled paranoid schizophrenia -Geodon, Ativan, Benadryl PRN to control agitation -continue psych meds in hopes of improvement
[2017-07-26] MEDS: Multivitamin W/ Minerals 1 TAB PO SCH (11:11)
[2017-07-26] MEDS: Magnesium Oxide 400 MG TAB PO SCH (11:11)
[2017-07-26] MEDS: Folic Acid 1 MG TAB PO SCH (11:11)
--- NOTE | 2017-07-27 14:10 | DIS-2 ---
DATE OF ADMISSION: 07/24/2017 DATE OF DISCHARGE: 07/26/2017 RESIDENT: Augustin Wilson M.D. ADMITTING ATTENDING: Dr. Sun Aguila DISCHARGE ATTENDING: Moris Hernandez M.D. CONSULTATIONS: [facility] PROCEDURES: 1. CT of the abdomen and pelvis showing no urolithiasis or obstructive uropathy. Moderate distentio n of the gallbladder. 2. Chest x-ray showing no acute process. 3. Ultrasound of the abdomen showing no sonographic evidence of cholelithiasis or cholecystitis. Co mmon bile duct measured 0.6 cm in diameter. There is no gallbladder wall thickening or pericholecyst ic fluid. PRIMARY DIAGNOSES: 1. Cannabinoid induced hyperemesis syndrome. 2. Schizophrenia. 3. Rhabdomyolysis. 4. Polysubstance abuse. 5. Acute kidney injury. DISCHARGE MEDICATIONS: 1. Cogentin 2 mg p.o. b.i.d. 2. Buspirone 30 mg p.o. b.i.d. 3. Olanzapine 10 mg p.o. at bedtime. 4. Latuda 120 mg p.o. at bedtime. DISCONTINUED MEDICATIONS: 1. Geodon 10 mg IM. 2. Benadryl. 3. Ativan 1 mg p.r.n. 4. Reglan. 5. Zofran. HISTORY OF PRESENT ILLNESS/HOSPITAL COURSE: This is a 52-year-old male well known t o the ED presenting with abdominal pain and nausea. The endorses abdominal pain for 3 days with asso ciated nausea and vomiting with nonbloody, nonbilious emesis. He reports being outside in the heat f or very long periods of time over the prior 2-3 days before admission and very little water intake. The patient has a past medical history of schizophrenia and is a very poor historian. Therefore, his tory upon admission is very scarce. The patient has a known social history of tobacco abuse, alcohol use and marijuana abuse. Normally the patient's creatinine is around 1; however, upon checking in located within [facility] ER, it was around 3.18 on the day of admission. The patient was admitted for acute kidney injury initially. Urine studies revealed a prerenal etiolo gy and he was adequately resuscitated with IV fluid. His creatinine trended down and his acute kidne y injury resolved. However, he did have rhabdomyolysis with CK of 800 and eventually bumped to 1100. With fluids this also corrected as well and was down trending upon the day of discharge. The patient's abdominal pain is cannabinoid induced. He has had multiple CT scans done in the ER, al l being negative His abdominal ultrasound was negative as well. The patient can only find relief wh ile in hot showers. The patient took ____ and now on hot shower every single day throughout his admi ssion. The patient's CBC and BMP were normal throughout admission as well as his vital signs. The p loyda became very agitated and hysterical on day 2 of hospitalization. He required Geodon 10 mg IM on at least 4 separate occasions as well as Benadryl and Ativan to keep him sedated and not pose a th reat to nursing or staff. The patient has done this on multiple admissions and [facility] is very familiar with his behavior. They were consulted to admit for possible inpatient placement for psychosis. Vahid cain, upon interview, the patient was answering questions normally, oriented to person, place, and t soif. He posed no threat of harm to himself or others during evaluation. His behavior is very manipu lative in an attempt to get narcotic pain medications. [facility] declined inpatient admission and suggest ed follow up with his current psychiatrist in the outpatient setting. The patient's mood, speech an d behavior were all appropriate on the day of discharge. DISCHARGE DISPOSITION: Stable. DISCHARGE INSTRUCTIONS: 1. Location: Home. 2. Diet: Regular. 3. Activity: As tolerated. 3. Follow up with [facility] in 7-10 days.
[2017-07-27 16:13] LABS: Hep B Surface AG-Rflx Sendout Negative (Negative); Hepatitis B Core IgM AB Negative (Negative); Hepatitis B Core Total Negative (Negative); Hepatitis B Surface AB-Sendout Non Reactive (.)
== END 2017-07-26 15:13 | disposition home or self-care (01) | DRG 683 ==
LOC: ERS 20:33 → OBSVTOIN 07-24 02:50 → ONC 07-24 02:50
PROVIDERS: ADMIT Family Medicine; ATTEND Family Medicine
DX: N17.9 Acute kidney failure, unspecified (principal); F20.0 Paranoid schizophrenia; R10.84 Generalized abdominal pain; F19.10 Other psychoactive substance abuse, uncomplicated; F50.89 Other specified eating disorder
CPT/HCPCS: 36415; 71045; 74176; 76705; 80048; 80053; 80306; 81003; 81015; 82550; 82570; 83690; 84300; 84443; 85025; 86704; 86705; 86706; 86707; 86709; 86780; 86803; 87340; 87350; 87389; 93005; 96361; 96374; 99406; A4216; J1200; J2060; J2270; J2405; J3475; J3486; J7050; Q0162

== ENCOUNTER 2017-08-13 21:35 | Inpatient (IN) | payer OTHER ==
[2017-08-13] MEDS ORDERED: Lorazepam 2 MG/ML VIAL ONE (21:41)
[2017-08-13] MEDS ORDERED: Ziprasidone 20 MG VIAL ONE (21:44)
[2017-08-13 22:19] LABS: #Basophils 0.1 thou/uL (0.0-0.2); #Eosinphils 0.1 thou/uL (0.0-0.7); #Lymphocytes 2.2 thou/uL (1.20-3.40); #Monocytes 0.9 thou/uL (0.11-0.59); #Neutrophils 3.5 thou/uL (1.40-6.50); %Basophils 1.7 % (0.0-1.0); %Eosinophils 1.4 % (0.0-10.0); %Lymphocytes 32.2 % (21.0-51.0); %Monocytes 13.1 % (0.0-10.0); %Neutrophils 51.6 % (42.0-75.0); Hemoglobin 16.2 g/dL (14.0-18.0); Mean Corpuscular Hemoglobin 32.6 pg (27.0-31.0); Mean Platelet Volume 6.6 fL (7.4-10.4); Platelet Count 382 thou/uL (130-400); RBC Distribution Width 14.7 % (11.5-14.5); Red Blood Cell (RBC) Count 4.96 mill/uL (4.70-6.10); White Blood Cell (WBC) Count 6.8 thou/uL (4.8-10.8)
[2017-08-13] MEDS ORDERED: Ondansetron ODT 4 MG TAB ONE (22:31)
[2017-08-13 22:39] LABS: Anion Gap 21 mmol/L (10-20); BUN (Urea Nitrogen) 20 mg/dL (8.4-25.7); Calc. Creatinine Clearance 0 mL/min (70-130); Calcium 10.6 mg/dL (7.8-10.44); Carbon Dioxide 24 mmol/L (22-29); Chloride 97 mmol/L (98-107); Estimated GFR-MDRD 36; Glucose 113 mg/dL (70-105); Potassium 3.1 mmol/L (3.5-5.1); Sodium 139 mmol/L (136-145)
[2017-08-13 22:40] LABS: ALT (SGPT) 10 U/L (8-55); AST (SGOT) 18 U/L (5-34); Acetaminophen Less than 6.0 mcg/mL (10.0-30.0); Albumin 5.1 g/dL (3.5-5.0); Alcohol Less than 10 mg/dL (Less than 10); Alkaline Phosphatase 70 U/L (40-150); Anion Gap 21 mmol/L (10-20); BUN (Urea Nitrogen) 21 mg/dL (8.4-25.7); Bilirubin, Total 0.7 mg/dL (0.2-1.2); CK (CPK) 110 U/L (30-200); Calc. Creatinine Clearance 0 mL/min (70-130); Calcium 10.6 mg/dL (7.8-10.44); Carbon Dioxide 23 mmol/L (22-29); Chloride 95 mmol/L (98-107); Estimated GFR-MDRD 36; Globulin 3.9 g/dL (2.4-3.5); Glucose 115 mg/dL (70-105); Lipase 26 U/L (8-78); Potassium 3.1 mmol/L (3.5-5.1); Salicylate Less than 8.0 mg/dL (15.0-30.0); Sodium 136 mmol/L (136-145)
[2017-08-14] MEDS ORDERED: Pantoprazole 40 MG VIAL ONE ×2 (00:07→01:10)
[2017-08-14] MEDS ORDERED: Pantoprazole 80 MG, Admixture Fee 1 EACH in Sodium Chloride 0.9% 100 ML IVP SCH (01:15)
--- NOTE | 2017-08-14 01:44 | PDOC.FPRHP ---
- History of Present Illness Chief Complaint: abdominal pain, kidney injury History of Present Illness: 52 yo M recently dc at the end of June that was hospitalized then for RUTH. Pt returns to ER today with CC of abd pain, nausea, vomiting for unknown amount of time. Per ER checkout pt was agitated on presentation and only complaint was abdominal pain, nausea and vomiting. He was found to have an elevated creatinine >2 and some mild hypokalemia. Per nurse, pt had some specs of blood in emesis, but Hgb stable and not a recurring episode. For his agitation pt was given 2mg ativan and 20mg geodon prior to speaking with pt. He was somnolent and no ROS/history from pt was able to be obtained. ED Course: 20 geodon, 2 ativan, 2LNS, 80mg IVP protonix - Allergies/Adverse Reactions Allergies Allergy/AdvReac Type Severity Reaction Status Date / Time divalproex sodium Allergy Verified 02/05/13 01:09 [From Depakote] risperidone [From Risperdal] Allergy Verified 02/05/13 01:09 valproic acid Allergy Verified 07/24/17 03:54 - Home Medications Medication Instructions Recorded Confirmed Type Benztropine Mesylate [Cogentin] 2 mg PO BID 07/24/17 08/14/17 History Buspirone HCl [busPIRone HCl] 30 mg PO BID 07/24/17 08/14/17 History Lurasidone HCl [Latuda] 120 mg PO HS 07/24/17 08/14/17 History OLANZapine [Olanzapine] 10 mg PO HS 07/24/17 08/14/17 History - History PMHx: paranoid schizophrenia, history of ckd PSHx: Unknown FHx: Unknown Social: unknown, cannabinoid positive previously - Review of Systems ROS unobtainable: due to mental status - Vital signs BP: 115/94 HR: 106 RR: 18 Tmax: 98.9 Pox: 97% on RA Wt: 63.5Kg - Physical Exam Constitutional: other (somnolent, arousable to verbal stimuli) HEENT: normocephalic and atraumatic, grossly normal hearing Neck: no LAD, no JVD Heart: normal S1/S2, no murmurs/rubs/gallops, pulses present, no edema, other ( tachycardic) Lungs: CTAB, no respiratory distress, good air movement, no rales/rhonchi Abdomen: soft, bowel sounds present, no masses/distention, other (diffuse mild TTP) Musculoskeletal: ROM grossly normal Neurological: no focal deficit Skin: no rash/lesions, good turgor, capillary refill <2 seconds Heme/Lymphatic: no purpura, no petechia Psychiatric: other (somnolent, agitated and beligerent prior to GEODON per ER records) FMR H&P: Results - Labs Result Diagrams: 08/14/17 08:15 08/14/17 08:15 Lab results: WBC 6.8 thou/uL (4.8-10.8) 08/13/17 22:15 Hgb 16.2 g/dL (14.0-18.0) 08/13/17 22:15 Hct 47.6 % (42.0-52.0) 08/13/17 22:15 MCV 96.0 fl (80.0-94.0) H 08/13/17 22:15 Plt Count 382 thou/uL (130-400) 08/13/17 22:15 Neutrophils % 51.6 % (42.0-75.0) 08/13/17 22:15 Sodium 136 mmol/L (136-145) 08/13/17 22:15 Potassium 3.1 mmol/L (3.5-5.1) L 08/13/17 22:15 Chloride 95 mmol/L (98-107) L 08/13/17 22:15 Carbon Dioxide 23 mmol/L (22-29) 08/13/17 22:15 BUN 21 mg/dL (8.4-25.7) 08/13/17 22:15 Creatinine 2.28 mg/dL (0.6-1.3) H 08/13/17 22:15 Glucose 115 mg/dL (70-105) H 08/13/17 22:15 Calcium 10.6 mg/dL (7.8-10.44) H 08/13/17 22:15 Total Bilirubin 0.7 mg/dL (0.2-1.2) 08/13/17 22:15 AST 18 U/L (5-34) 08/13/17 22:15 ALT 10 U/L (8-55) 06/16/18 22:15 Alkaline Phosphatase 70 U/L (40-150) 08/13/17 22:15 Creatine Kinase 110 U/L (30-200) 08/13/17 22:15 Serum Total Protein 9.0 g/dL (6.0-8.3) H 08/13/17 22:15 Albumin 5.1 g/dL (3.5-5.0) H 08/13/17 22:15 Lipase 26 U/L (8-78) 08/13/17 22:15 - EKG Interpretation EKG: tachycardia, NSR FMR H&P: A/P - Problem List (1) RUTH (acute kidney injury) Current Visit: No Status: Acute Priority: High Code(s): N17.9 - ACUTE KIDNEY FAILURE, UNSPECIFIED (2) Hypokalemia Current Visit: No Status: Acute Code(s): E87.6 - HYPOKALEMIA (3) Polysubstance abuse Current Visit: No Status: Acute Code(s): F19.10 - OTHER PSYCHOACTIVE SUBSTANCE ABUSE, UNCOMPLICATED (4) Abdominal pain Current Visit: No Status: Chronic Priority: High Code(s): R10.9 - UNSPECIFIED ABDOMINAL PAIN Qualifiers: Abdominal location: generalized Qualified Code(s): R10.84 - Generalized abdominal pain (5) Paranoid schizophrenia Current Visit: No Status: Chronic Priority: Medium Code(s): F20.0 - PARANOID SCHIZOPHRENIA (6) Hematemesis with nausea Current Visit: Yes Status: Acute Code(s): K92.0 - HEMATEMESIS - Plan 1) RUTH: - BUN/CR more intrinsic picture although BMP points to hypovolemic picture; mixed - check Urine sodium and cr - IVF NS @ 200mls/hr - monitor BMP 2) Hypokalemia: - stable, will hold on replacement considering RUTH and concern for worsening renal function - check mag - monitor 3) Abd pain: unknown etiology - possibly 2/2 cannabinoid hyperemesis syndrome 4) Hematemesis: possibly 2/2 jeffrey dickinson given n/v history -repeat CBC and trend Hgb - Pt has not had reported recurrent episodes of emesis - monitor - IVF resuscitation, continue pantoprozole 40 BID for now - NPO meds with sips now 5) Code status Full 6) PPX: pantoprazole and scds for GI and dvt ppx respectively 7) Paranoid schizophrenia: home medications Disposition/LOS: stable, >/=2 days FMR H&P: Upper Level - Pertinent history 52 y/o w/ PMHx of of acute renal failure w/ recent discharge from the hospital last month presents to the ER for evaluation of diffuse abdominal pain. Reportedly similar to his prior hospitalization. Per ER physician associated w/ nausea and vomitting w/ some speck of blood. Patient was agitated upon arrival requiring restraints and administration of ativan and geodon. Pt was asleep and would not wake long enough to answer interview questions. - Pertinent findings Vitals BP 147/90 HR 103 Resp 16 O2 sat 97% RA Temp 98.7 DegF Labs Hgb 16.2 MCV 96 Chloride 95 BUN 21 Cr 2.28 Calcium 10.6 Plasma EtOH <10 GI + occult blood Physical Exam limited 2/2 patient not cooperating/waking for exam Gen: Sleeping in bed, will wake for short periods of time but not long enough to answer questions Cards: Tachycardic, no murmur Pulm; CTA-b/l no wheezes or rhonci GI: Diffusely TTP, no distention, no rigidity Neuro: Moves all ext equally - Plan Date/Time: 08/14/17 0144 ICarline. Alex Chapman MD, have evaluated this patient and agree with findings/plan as outlined by analytics intern resident. Pertinent changes/additions are listed here. 52 y/o M w/: 1. Acute Kidney Injury likely pre-renal 2/2 #2 - Will obtain urine sodium and urine creatinine to further eval Pre-renal vs intrinsic - Likely pre-renal in the setting of noted hemoconcentration on labs - Will give 1L bolus of LR then place on 150 mL/Hr - Repeat BMP in the AM and nephro consult 2. 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 Hypercalcemia - Likely 2/2 decreased volume status - Will repeat s/p IVF, no acute changes noted on EKG 4. Schizophrenia - Cont. w/ home medications w/ PRN's available 5. Abdominal Pain likely cannabinoid induced - Will check urine and blood drug studies - Negative abdominal U/S obtained during prior admission Attending Addendum - Attending Addendum Date/Time: 08/14/17 9854 I personally evaluated the patient and discussed the management with Dr. Velazquez. I agree with the History, Examination, Assessment and Plan documented above with any addition or exceptions noted below.
[2017-08-14] MEDS ORDERED: Ondansetron HCl/PF 4 MG/2 ML Vial IVP PRN (03:44)
[2017-08-14] MEDS ORDERED: Ondansetron ODT 4 MG TAB SL PRN (03:44)
[2017-08-14] MEDS ORDERED: Sodium Chloride 0.9% 1,000 ML IV SCH (03:44)
[2017-08-14 04:30] VITALS: BMI 21.6
[2017-08-14] MEDS ORDERED: Acetaminophen 325 MG TAB PO PRN (04:54)
[2017-08-14] MEDS: Lorazepam 2 MG/ML VIAL SLOW IVP PRN ×2 (05:31→22:27)
[2017-08-14] MEDS: Sodium Chloride 0.9% 1,000 ML IV SCH ×5 (05:34→20:36)
[2017-08-14 08:54] LABS: #Basophils 0.1 thou/uL (0.0-0.2); #Lymphocytes 1.2 thou/uL (1.20-3.40); #Monocytes 0.3 thou/uL (0.11-0.59); %Basophils 1.3 % (0.0-1.0); %Eosinophils 0.2 % (0.0-10.0); %Monocytes 4.9 % (0.0-10.0); %Neutrophils 75.6 % (42.0-75.0); Mean Corpuscular HGB CONC 32.9 g/dL (32.0-36.0); Mean Corpuscular Hemoglobin 31.7 pg (27.0-31.0); Mean Corpuscular Volume 96.2 fl (80.0-94.0); Mean Platelet Volume 6.9 fL (7.4-10.4); Platelet Count 347 thou/uL (130-400); RBC Distribution Width 14.5 % (11.5-14.5); Red Blood Cell (RBC) Count 4.41 mill/uL (4.70-6.10); White Blood Cell (WBC) Count 6.7 thou/uL (4.8-10.8)
[2017-08-14 09:12] LABS: Anion Gap 16 mmol/L (10-20); BUN (Urea Nitrogen) 18 mg/dL (8.4-25.7); Calc. Creatinine Clearance 47 mL/min (70-130); Calcium 9.3 mg/dL (7.8-10.44); Carbon Dioxide 22 mmol/L (22-29); Chloride 103 mmol/L (98-107); Estimated GFR-MDRD 59; Glucose 127 mg/dL (70-105); Potassium 3.3 mmol/L (3.5-5.1); Sodium 138 mmol/L (136-145)
[2017-08-14] MEDS: Benztropine Mesylate 2 MG/2 ML VIAL IVP SCH ×2 (09:21→20:39)
[2017-08-14] MEDS: busPIRone HCl 10 MG TAB PO SCH ×2 (09:33→20:38)
[2017-08-14] MEDS ORDERED: Potassium Chloride 20 MEQ TAB PO SCH (10:00)
[2017-08-14] MEDS ORDERED: Magnesium 2 GM/NS 0.9% 100 ML 2 GM in Premix Bag 1 BAG IVPB SCH (10:00)
[2017-08-14] MEDS: Haloperidol Lactate 5 MG/ML VIAL SLOW IVP PRN ×3 (10:10→23:06)
[2017-08-14 12:13] LABS: Amphetamine Not Detected (NotDetected); Barbiturates Screen Not Detected (NotDetected); Benzodiazepine Screen Detected (NotDetected); Cocaine Metabolite Screen Not Detected (NotDetected); Medtox Control Line Valid? VALID (VALID); Medtox Reader # READER 1; Methadone Not Detected (NotDetected); Methamphetamine Not Detected (NotDetected); Opiate Screen Not Detected (NotDetected); Oxycodone Screen Not Detected (NotDetected); Phencyclidine (PCP) Not Detected (NotDetected); THC/Cannabinoid Screen Detected (NotDetected); Tricyclic Screen Detected (NotDetected)
[2017-08-14 12:16] LABS: Creatinine, Urine 419.49 mg/dL (63-166)
[2017-08-14] MEDS ORDERED: Ondansetron HCl/PF 4 MG/2 ML Vial SLOW IVP SCH (15:15)
[2017-08-14] MEDS ORDERED: Lurasidone HCl 40 MG TABLET PO SCH (21:00)
[2017-08-14] MEDS ORDERED: OLANZapine 5 MG TAB PO SCH (21:00)
[2017-08-14] MEDS ORDERED: Promethazine HCl 25 MG/ML VIAL IM/IV SCH (23:00)
[2017-08-14] MEDS ORDERED: Promethazine HCl 25 MG in Sodium Chloride 0.9% 50 ML IVPB SCH (23:45)
[2017-08-15] MEDS: Haloperidol Lactate 5 MG/ML VIAL SLOW IVP PRN (03:33)
[2017-08-15] MEDS: Sodium Chloride 0.9% 1,000 ML IV SCH ×3 (03:39→16:58)
[2017-08-15] MEDS ORDERED: Acetaminophen 1,000 MG in Premix Bag 1 BAG IVPB SCH (03:45)
[2017-08-15 04:39] LABS: #Lymphocytes 1.5 thou/uL (1.20-3.40); #Monocytes 0.4 thou/uL (0.11-0.59); %Basophils 0.5 % (0.0-1.0); %Eosinophils 0.1 % (0.0-10.0); %Lymphocytes 21.5 % (21.0-51.0); %Monocytes 5.2 % (0.0-10.0); %Neutrophils 72.7 % (42.0-75.0); Hemoglobin 11.7 g/dL (14.0-18.0); Mean Corpuscular Hemoglobin 31.8 pg (27.0-31.0); Mean Corpuscular Volume 96.5 fl (80.0-94.0); Mean Platelet Volume 6.8 fL (7.4-10.4); Platelet Count 263 thou/uL (130-400); RBC Distribution Width 14.4 % (11.5-14.5); Red Blood Cell (RBC) Count 3.67 mill/uL (4.70-6.10); White Blood Cell (WBC) Count 6.8 thou/uL (4.8-10.8)
[2017-08-15 05:33] LABS: Anion Gap 14 mmol/L (10-20); BUN (Urea Nitrogen) 9 mg/dL (8.4-25.7); Calc. Creatinine Clearance 77 mL/min (70-130); Calcium 8.4 mg/dL (7.8-10.44); Carbon Dioxide 21 mmol/L (22-29); Chloride 107 mmol/L (98-107); Estimated GFR-MDRD Greater than 90; Glucose 103 mg/dL (70-105); Potassium 3.8 mmol/L (3.5-5.1); Sodium 138 mmol/L (136-145)
[2017-08-15] MEDS: Lorazepam 2 MG/ML VIAL SLOW IVP PRN (05:45)
--- NOTE | 2017-08-15 08:35 | PDOC.FM ---
- Subjective Subjective: 52 yo M here with RUTH 2/2 volume depletion related to cyclic vomiting dt cannabinoid use. Over night patient needed multiple doses of Haldol and Ativan dt agitation. Pt has had continued hematemesis secondary to self induction of vomiting by putting his finger down his throat. - Objective MAR Reviewed: Yes Vital Signs & Weight: Vital Signs (12 hours) Temp Pulse Resp BP Pulse Ox 08/15/17 08:08 98.1 F 76 18 157/93 H 96 08/15/17 03:39 98.4 F 81 18 166/96 H 95 08/14/17 23:30 98.6 F 90 18 113/76 97 Weight Weight 59.024 kg I&O: 08/14/17 08/15/17 08/16/17 06:59 06:59 06:59 Intake Total 4500 Output Total 500 Balance 4000 Result Diagrams: 08/15/17 04:26 08/15/17 04:26 <Terell Velazquez - Last Filed: 08/15/17 08:33> - Objective Vital Signs & Weight: Weight Admit Weight 59.024 kg Weight 59.024 kg I&O: 08/15/17 08/16/17 08/17/17 06:59 06:59 06:59 Intake Total 4500 1120 Output Total 500 Balance 4000 1120 Result Diagrams: 08/15/17 04:26 08/15/17 04:26 <Brittany Pham - Last Filed: 08/16/17 08:17> Phys Exam - Physical Examination Constitutional: NAD HEENT: moist MMs, sclera anicteric Neck: no JVD, full ROM Respiratory: clear to auscultation bilateral Cardiovascular: RRR, no rub systolic murmur does not radiate Gastrointestinal: soft, non-tender, no distention, positive bowel sounds Musculoskeletal: no edema Neurological: moves all 4 limbs Deviation from normal: Pt would not answer questions this am. He appears to have baseline paranoia and baseline delusion of something in his stomach Skin: no rash, normal turgor <Terell Velazquez - Last Filed: 08/15/17 08:33> Dx/Plan (1) Hematemesis with nausea Code(s): K92.0 - HEMATEMESIS Status: Acute (2) Paranoid schizophrenia Code(s): F20.0 - PARANOID SCHIZOPHRENIA Status: Chronic (3) RUTH (acute kidney injury) Code(s): N17.9 - ACUTE KIDNEY FAILURE, UNSPECIFIED Status: Resolved (4) Hypokalemia Code(s): E87.6 - HYPOKALEMIA Status: Resolved (5) Self induced vomiting Code(s): F50.89 - OTHER SPECIFIED EATING DISORDER Status: Chronic - Plan Plan: RUTH: - Now resolved with IVF Hypokalemia: - replaced yesterday, now resolved Abd pain: unknown etiology - chronic. Unclear if this is organic or psychogenic. No obvious source of pain. Normal physical exam Hematemesis: possibly 2/2 jeffrey dickinson given n/v history - Hb stable. Pt will not stop inducing vomiting, there is concern for possibly inducing a esophageal rupture if this continues. - Will start scheduled phenergan to ensure no organic nausea and help with sedation Paranoid schizophrenia: home medications - pt is uncontrolled on current home medication. He is currently medically stable, but needs further monitoring and control otherwise there is concern for serious self harm dt compulsive vomiting. - will consult [facility] for placement Code status Full PPX: pantoprazole and scds for GI and dvt ppx respectively Dispo: pt is medically stable, however will need further psych eval. LOS likely 1-2 days pending [facility] eval <Terell Velazquez - Last Filed: 08/15/17 08:33> Attending Addendum - Attending Addendum Date/Time: 08/16/17 8875 I personally evaluated the patient and discussed the management with Dr. Jain and Dr. Velazquez I agree with the History, Examination, Assessment and Plan documented above with any addition or exceptions noted below. Medically stable. Awaiting [facility] for inpatient treatment due to paranoia and hallucinations. ABrayMD <Brittany Pham - Last Filed: 08/16/17 08:17>
[2017-08-15] MEDS ORDERED: Ondansetron HCl/PF 4 MG/2 ML Vial IVP SCH (10:15)
[2017-08-15] MEDS: busPIRone HCl 10 MG TAB PO SCH (11:19)
[2017-08-15] MEDS: Benztropine Mesylate 2 MG/2 ML VIAL IVP SCH (11:19)
[2017-08-15 20:17] VITALS: BP 154/82; TEMP 98.5
--- NOTE | 2017-08-16 05:12 | DIS-2 ---
DATE OF ADMISSION: 08/14/2017 DATE OF DISCHARGE: 08/15/2017 ADMITTING ATTENDING: Harshal Vivas M.D. DISCHARGE ATTENDING: Brittany Pham M.D. RESIDENT: Terell Velazquez D.O. CONSULTATIONS: [facility] with recommendation for inpatient psychiatric care. PROCEDURES: None. PRIMARY DIAGNOSIS: Acute kidney injury secondary to self-induced vomiting. SECONDARY DIAGNOSES: Paranoid schizophrenia, polysubstance abuse, hypokalemia, hematemesis. DISCHARGE MEDICATIONS: Cogentin 2 mg p.o. b.i.d., buspirone 30 mg p.o. b.i.d., olanzapine 10 mg p.o. at bedtime, Latuda 125 mg p.o. at bedtime. HOSPITAL COURSE: This is a 52-year-old male with a history of paranoid schizophrenia, who was admitted for an acute kidney injury secondary to self- induced vomiting. The patient has been admitted for similar reasons in the past. During this admission, the patient presented with a creatinine of 2.28 and it was also noted at the time of admission there was blood in the vomitus. This was confirmed by positive occult blood on the vomitus. The patient was given intravenous fluids and creatinine quickly corrected over the course of admission, down to 0.92, which is approximately the patient's baseline. Throughout the admission, the patient was quite agitated and had delusions of feces in the stomach. Additionally, there were many instances of witnessed self -induced vomiting. The patient would also complain of persistent stomach pain, it is unclear if this was organic or psychogenic. However at no time was physical exam consistent with an organic cause the stomach pain or an acute abdomen. The patient consistently received Haldol 10 mg dose approximately q.4- 6 hours in order to control his agitation and delusions. While admitted the patient, [facility] was consulted and recommended inpatient psychiatric care, so the patient's medical management could be optimized in the inpatient setting due to concern for the patient's safety. The major concerning being possible Amanda- Burton tear with continued vomiting resulting in an esophageal rupture. Therefore, it was recommended that the patient have his medicine optimized inpatient. On the day of discharge, the patient was medically stable and at baseline. DISPOSITION: Stable. DISCHARGE INSTRUCTIONS: 1. Location: To [facility]. 2. Diet: Regular. 3. Activity: Ad-parveen. 4. Followup: With [facility] as recommended after discharge from [facility]. MINA
--- NOTE | 2017-08-16 07:41 | PQF ---
ALICIA WALLACE JR, AMANDA MD *r [id number] CLINICAL DOCUMENTATION CLARIFICATION FORM: POST DISCHARGE DATE: 08/16/2017 ATTN: Dr. Pham Please exercise your independent, professional judgment in responding to the clarification form. Clinical indicators are provided on the bottom of this form for your review Please check appropriate box(s) to clarify if the following diagnosis has been ruled in or ruled out: Mallory Dickinson Tear [ ] Ruled in diagnosis [ ] Continue to treat [ ] Resolved [ ] Ruled out diagnosis [ x ] Cannot rule out diagnosis [ ] Other diagnosis (please specify) [ ] Unable to determine In addition, please specify: Present on Admission (POA): [ ] Yes [ ] No [ ] Unable to determine For continuity of documentation, please document condition throughout progress notes and discharge summary. Thank You. CLINICAL INDICATORS - SIGNS / SYMPTOMS / LABS Per H&P: Per nurse, pt had some specs of blood in emesis but Hgb stable and not a recurring episode. Hematemesis: possibly 2/2 amanda dickinson given n/v history. Per progress note: Pt has had continued hematemesis secondary to self induction of vomiting by putting his finger down his throat. Hematemesis: possibly 2/2 amanda dickinson given n/v history. Per discharge summary: The major concern being the patient is already having blood in his vomit secondary to concern for Amanda-Dickinson tear, continued retching may result in an esophageal rupture. RISK FACTORS Per progress note/discharge summary: Paranoid schizophrenia with self induced vomiting. TREATMENTS Per H&P: IVF resuscitation, continue pantoprazole 40 mg BID for now. (This form is maintained as a part of the permanent medical record) 2014 [employer]. All Rights Reserved [email or web address] [phone] [email or web address]
== END 2017-08-15 20:15 | DRG 682 ==
LOC: ERS 21:35 → T4-A 08-14 03:23
PROVIDERS: ADMIT Family Medicine; ATTEND Family Medicine
DX: N17.9 Acute kidney failure, unspecified (principal); K22.6 Gastro-esophageal laceration-hemorrhage syndrome; F20.0 Paranoid schizophrenia; E87.6 Hypokalemia; F12.10 Cannabis abuse, uncomplicated; E83.52 Hypercalcemia; R11.10 Vomiting, unspecified; Z78.1 Physical restraint status; Z79.899 Other long term (current) drug therapy
CPT/HCPCS: 36415; 80048; 80306; 80307; 82271; 82550; 82570; 83690; 83735; 84300; 84443; 85025; 86850; 86900; 86901; 93005; 96361; 96372; 96374; 96376; A4216; C9113; J0131; J0515; J1630; J2060; J2405; J2550; J3475; J3486; J7050; Q0162

== ENCOUNTER 2017-08-23 21:17 | Observation (INO) | payer OTHER ==
[2017-08-23] MEDS ORDERED: Haloperidol Lactate 5 MG/ML VIAL ONE (22:53)
[2017-08-23] MEDS ORDERED: Lorazepam 2 MG/ML VIAL ONE (22:53)
[2017-08-23 23:24] LABS: #Basophils 0.1 thou/uL (0.0-0.2); #Lymphocytes 2.9 thou/uL (1.20-3.40); #Monocytes 0.9 thou/uL (0.11-0.59); #Neutrophils 4.6 thou/uL (1.40-6.50); %Basophils 1.2 % (0.0-1.0); %Eosinophils 0.2 % (0.0-10.0); %Lymphocytes 33.6 % (21.0-51.0); %Monocytes 10.6 % (0.0-10.0); %Neutrophils 54.4 % (42.0-75.0); Hemoglobin 13.5 g/dL (14.0-18.0); Mean Corpuscular HGB CONC 34.4 g/dL (32.0-36.0); Mean Corpuscular Hemoglobin 33.4 pg (27.0-31.0); Mean Platelet Volume 6.8 fL (7.4-10.4); Platelet Count 331 thou/uL (130-400); RBC Distribution Width 14.2 % (11.5-14.5); Red Blood Cell (RBC) Count 4.04 mill/uL (4.70-6.10); White Blood Cell (WBC) Count 8.5 thou/uL (4.8-10.8)
[2017-08-23 23:26] LABS: Prothrombin Time 13.7 SEC (12.0-14.7)
[2017-08-23 23:43] LABS: ALT (SGPT) 24 U/L (8-55); AST (SGOT) 68 U/L (5-34); Acetaminophen Less than 6.0 mcg/mL (10.0-30.0); Albumin 4.8 g/dL (3.5-5.0); Alcohol Less than 10 mg/dL (Less than 10); Alkaline Phosphatase 53 U/L (40-150); Anion Gap 19 mmol/L (10-20); BUN (Urea Nitrogen) 22 mg/dL (8.4-25.7); Bilirubin, Total 1.2 mg/dL (0.2-1.2); CK (CPK) 1566 U/L (30-200); Calc. Creatinine Clearance 0 mL/min (70-130); Calcium 10.1 mg/dL (7.8-10.44); Carbon Dioxide 30 mmol/L (22-29); Chloride 91 mmol/L (98-107); Estimated GFR-MDRD 51; Globulin 3.2 g/dL (2.4-3.5); Glucose 98 mg/dL (70-105); Lipase 19 U/L (8-78); Salicylate Less than 8.0 mg/dL (15.0-30.0); Sodium 137 mmol/L (136-145)
[2017-08-23 23:48] LABS: Potassium 2.7 mmol/L (3.5-5.1)
[2017-08-24 03:31] LABS: Lactic Acid 0.7 mmol/L (0.5-2.2)
[2017-08-24] MEDS ORDERED: Nicotine 14 MG PATCH TD PRN (03:57)
[2017-08-24] MEDS ORDERED: Acetaminophen 325 MG TAB PO PRN (03:57)
[2017-08-24] MEDS ORDERED: Milk Of Magnesia 30 ML UDCUP PO PRN (03:57)
[2017-08-24] MEDS ORDERED: diphenhydrAMINE 50 MG CAP PO PRN (04:10)
[2017-08-24] MEDS ORDERED: Haloperidol Lactate 5 MG/ML VIAL IM PRN (04:18)
[2017-08-24] MEDS ORDERED: Simethicone Chewable 80 MG TAB PO PRN (04:21)
--- NOTE | 2017-08-24 04:35 | PDOC.FPRHP ---
- History of Present Illness Chief Complaint: Abdominal Pain History of Present Illness: Patient is a 52yo M with PMH of Paranoid schizophrenia who was recently admitted on 08/14- for RUTH 2/2 self-induced vomiting and similar abdominal pain presents with abdominal pain that is diffuse and initially described to ED physician as bugs crawling inside him. He was previously discharged to [facility] inpatient psychiatric facility. History is limited due to medications that were given in ED for agitation. Patient was also placed in hard restraints for some time in ED and has now been transitioned to soft restraints and is resting comfortably. Patient is drowsy but reports compliance with medications and continued crampy abdominal pain that feels like "shit is inside me." He reports last BM was last Tuesday. Patient reports hx of SI, but denies current SI. He reports visual hallucinations of seeing shadows, auditory hallucinations where voices "tell me to take care of myself," and nausea, but no recent vomiting. ED Course: In the ED he received 50mg Ketamine, 5mg IM Haldol, and 2mg Ativan for agitation. He also received 20meq of KCl for hypokalemia. As mentioned above, had to be restrained in hard restraints and now soft restraints. - Allergies/Adverse Reactions Allergies Allergy/AdvReac Type Severity Reaction Status Date / Time divalproex sodium Allergy Verified 02/05/13 01:09 [From Depakote] risperidone [From Risperdal] Allergy Verified 02/05/13 01:09 valproic acid Allergy Verified 07/24/17 03:54 - Home Medications Medication Instructions Recorded Confirmed Type Benztropine Mesylate [Cogentin] 2 mg PO HS 07/24/17 08/24/17 History Buspirone HCl [busPIRone HCl] 30 mg PO BID 07/24/17 08/24/17 History Lurasidone HCl [Latuda] 120 mg PO HS 07/24/17 08/24/17 History OLANZapine [Olanzapine] 10 mg PO HS 07/24/17 08/24/17 History QUEtiapine Fumarate [SEROquel] 300 mg PO HS 08/24/17 08/24/17 History - History PMHx: 1. Paranoid Schizophrenia PSHx: unk FHx: unk Social: Reports 1/2 ppd tobacco use, denies etoh, admits to crack cocaine use and MJ use, last use was 3 weeks ago. - Review of Systems General: denies: fever/chills Eyes: denies: eye pain ENT: denies: nasal congestion, rhinorrhea Respiratory: denies: cough, congestion, shortness of breath Cardiovascular: denies: chest pain, palpitation Gastrointestinal: reports: nausea, constipation, abdominal pain. denies: vomiting, diarrhea Genitourinary: denies: incontinence, dysuria Skin: denies: rashes, lesions Musculoskeletal: denies: pain, tenderness Neurological: denies: numbness, syncope Psychological: denies: anxiety, depression - Vital signs BP: [] HR: [] RR: [] Tmax: [] Pox: []% on [] Wt: [] - Physical Exam Constitutional: NAD -Constitutional: Drowsy, drifting in and out during conversation, answering questions appropriately, easily arousable HEENT: normocephalic and atraumatic, PERRLA, EOMI, grossly normal vision, grossly normal hearing -HEENT: dry MM Neck: supple Chest: no-tender to palpation Heart: RRR, normal S1/S2 Lungs: CTAB, no respiratory distress Abdomen: soft, non-tender, no masses/distention Musculoskeletal: normal structure, normal tone Neurological: no focal deficit Skin: no rash/lesions Heme/Lymphatic: no unusual bruising or bleeding -Psychiatric: patient sedated FMR H&P: Results - Labs Result Diagrams: 08/25/17 04:36 08/25/17 04:36 Lab results: WBC 8.5 thou/uL (4.8-10.8) 08/23/17 23:13 Hgb 13.5 g/dL (14.0-18.0) L 08/23/17 23:13 Hct 39.2 % (42.0-52.0) L 08/23/17 23:13 MCV 97.0 fL (78.0-98.0) 08/23/17 23:13 Plt Count 331 thou/uL (130-400) 08/23/17 23:13 Neutrophils % 54.4 % (42.0-75.0) 08/23/17 23:13 Sodium 137 mmol/L (136-145) 08/23/17 23:13 Potassium 2.7 mmol/L (3.5-5.1) L* 08/23/17 23:13 Chloride 91 mmol/L (98-107) L 08/23/17 23:13 Carbon Dioxide 30 mmol/L (22-29) H 08/23/17 23:13 BUN 22 mg/dL (8.4-25.7) 08/23/17 23:13 Creatinine 1.69 mg/dL (0.6-1.3) H 08/23/17 23:13 Glucose 98 mg/dL (70-105) 08/23/17 23:13 Lactic Acid 0.7 mmol/L (0.5-2.2) 08/24/17 02:45 Calcium 10.1 mg/dL (7.8-10.44) 08/23/17 23:13 Total Bilirubin 1.2 mg/dL (0.2-1.2) 08/23/17 23:13 AST 68 U/L (5-34) H 08/23/17 23:13 ALT 24 U/L (8-55) 08/23/17 23:13 Alkaline Phosphatase 53 U/L (40-150) 08/23/17 23:13 Creatine Kinase 1566 U/L (30-200) H 08/23/17 23:13 Serum Total Protein 8.0 g/dL (6.0-8.3) 08/23/17 23:13 Albumin 4.8 g/dL (3.5-5.0) 08/23/17 23:13 Lipase 19 U/L (8-78) 08/23/17 23:13 - EKG Interpretation EKG: pending - Radiology Interpretation CT scan - abdomen Status: image reviewed by me Additional comment: No acute findings, evidence of gas and stool in bowel CT scan - head Status: image reviewed by me Additional comment: No acute findings FMR H&P: A/P - Problem List (1) Abdominal pain Status: Chronic Priority: High Code(s): R10.9 - UNSPECIFIED ABDOMINAL PAIN Qualifiers: Abdominal location: generalized Qualified Code(s): R10.84 - Generalized abdominal pain (2) Paranoid schizophrenia Status: Chronic Priority: Medium Code(s): F20.0 - PARANOID SCHIZOPHRENIA (3) RUTH (acute kidney injury) Status: Resolved Priority: High Code(s): N17.9 - ACUTE KIDNEY FAILURE, UNSPECIFIED (4) Metabolic acidosis Status: Acute Code(s): E87.2 - ACIDOSIS (5) Polysubstance abuse Status: Chronic Code(s): F19.10 - OTHER PSYCHOACTIVE SUBSTANCE ABUSE, UNCOMPLICATED (6) Hypokalemia Status: Resolved Code(s): E87.6 - HYPOKALEMIA - Plan Abdominal Pain - Likely 2/2 psychiatric cause as he has been admitted/see multiple times for this same issue. Could be organic cause with stool and gas in the colon on CT. - Will give Colace BID and prn MOM - Place in inpatient medical. Elevated CK - likely 2/2 dehydration with patient reporting poor PO intake over the past few days - Give IVF at 250ml/hr - repeat CK in AM RUTH - BUN/Cr is 16 suggesting a pre-renal cause - give IVF and recheck AG Metabolic Acidosis - likely 2/2 Lactic Acidosis - give IVF and repeat Paranoid Schizophrenia - unsure of home medications at this time, nurse to med rec - Haldol prn, Benadryl prn Elevated AST - Hep B checked on last admission - RUQ u/s wnl on previous admission in 07/23 admission - uptrended from prior, will give IVF and trend. Polysubstance Abuse - UDS pending - encourage cessation VTE PPx: SCD Code status: Full Dispo: <48 pending medical clearance and most likely placement in facility. FMR H&P: Upper Level - Pertinent history Pt is an unfortunate 52 yo gentleman w/ PMH of paranoid schizophrenia, drug abuse who is returning to our service after being discharged approximately 10 days ago for similar symptoms of abdominal pain, hallucinations. He states that he feels as if there are feces inside his stomach and he has had some n/v; last time he was purposefully vomiting to purge himself of this hallucination. He also reports seeing shadows of figures he doesn't know and hearing voices telling him to "take care of [himself]." He also reports hx of suicidal ideation , but no attempts and does not currently have SI/HI. He was released from [facility] recently as well and reports he is on latuda and risperdone and something else, cannot remember and doesnt know dosages. He is currently very sedated in the ED after receiving haldol, ativan and in soft restraints for attempting to hurt staff. Last visit he needed continuous sedation with haldol to avoid agitation and to keep him for hurting himself/others No significant exam findings A/P 1. paranoid schizophrenia-call [facility] in AM to get new dosages and names of meds, reports that he is taking them 2. electrolyte disturbance (low potassium)-replaced in ED, monitor and replace as needed, when resolved consult MHMR for above. 3. Hx drug abuse including crack and cannabis-reports he quit 3 weeks ago, UDS pending 4. Mild dehydration CK 1500, rehydrate with NS - Plan Date/Time: 08/24/17 3253 I, [], have evaluated this patient and agree with findings/plan as outlined by internist medical doctor md resident. Pertinent changes/additions are listed here. Attending Addendum - Attending Addendum Date/Time: 08/26/17 9915 I personally evaluated the patient and discussed the management with Dr. Gil I agree with the History, Examination, Assessment and Plan documented above with any addition or exceptions noted below. Patient with history Paranaoid schizophrenia, self induced emesis and polysubstance abuse. He presents with elevated Ck and hypokalemia will admit and stabilize medical condition then he will need formal MHMR evaluation. He will benefit from case management and outpatient f/u to address his routine and preventative health care needs.
[2017-08-24 05:16] VITALS: BMI 19.9
[2017-08-24] MEDS: Potassium Chloride 20 MEQ in Premix Bag 1 BAG IVPB SCH (05:24)
[2017-08-24] MEDS: Sodium Chloride 0.9% 1,000 ML IV SCH ×6 (05:59→23:44)
[2017-08-24] MEDS: Ondansetron ODT 4 MG TAB PO PRN ×2 (06:42→12:46)
[2017-08-24 06:47] LABS: #Basophils 0.1 thou/uL (0.0-0.2); #Eosinphils 0.1 thou/uL (0.0-0.7); #Lymphocytes 3.1 thou/uL (1.20-3.40); #Neutrophils 4.2 thou/uL (1.40-6.50); %Basophils 1.2 % (0.0-1.0); %Eosinophils 0.6 % (0.0-10.0); %Monocytes 11.5 % (0.0-10.0); %Neutrophils 49.7 % (42.0-75.0); Hemoglobin 12.7 g/dL (14.0-18.0); Mean Corpuscular HGB CONC 33.1 g/dL (32.0-36.0); Mean Corpuscular Hemoglobin 32.3 pg (27.0-31.0); Mean Corpuscular Volume 97.7 fL (78.0-98.0); Mean Platelet Volume 7.5 fL (7.4-10.4); Platelet Count 315 thou/uL (130-400); RBC Distribution Width 14.2 % (11.5-14.5); Red Blood Cell (RBC) Count 3.93 mill/uL (4.70-6.10); White Blood Cell (WBC) Count 8.4 thou/uL (4.8-10.8)
[2017-08-24 07:07] LABS: Bilirubin Negative (Negative); Blood, Urine Negative (Negative); Clarity CLEAR (Clear); Glucose, Urine (Dipstick) Negative (Negative); Leukocyte Negative (Negative); Nitrite Negative (Negative); Protein, Urine (Dipstick) Trace mg/dL (Neg-Trace); Urobilinogen 0.2 mg/dL (0.2-1.0); pH, Urine 6.5 (5.0-9.0)
[2017-08-24 07:13] LABS: Bacteria/HPF None Seen HPF (None Seen); Hyaline Casts/LPF 0-3 HYALINE CAST LPF (0-3 Hyaline); Pathc Cast-AUWi Flag 0.14 (0-2.49); RBC/HPF 0-3 HPF (0-3); Squamous Epithelial 0-3 HPF (0-3); WBC/HPF 0-3 HPF (0-3)
[2017-08-24 07:25] LABS: ALT (SGPT) 19 U/L (8-55); AST (SGOT) 59 U/L (5-34); Albumin 4.3 g/dL (3.5-5.0); Alkaline Phosphatase 47 U/L (40-150); Anion Gap 14 mmol/L (10-20); BUN (Urea Nitrogen) 20 mg/dL (8.4-25.7); Calc. Creatinine Clearance 49 mL/min (70-130); Calcium 9.3 mg/dL (7.8-10.44); Carbon Dioxide 32 mmol/L (22-29); Chloride 93 mmol/L (98-107); Estimated GFR-MDRD 64; Globulin 2.8 g/dL (2.4-3.5); Glucose 78 mg/dL (70-105); Potassium 3.3 mmol/L (3.5-5.1); Protein, Total 7.1 g/dL (6.0-8.3); Sodium 136 mmol/L (136-145)
[2017-08-24] MEDS ORDERED: Potassium Chloride 20 MEQ TAB PO SCH (08:30)
[2017-08-24 08:31] LABS: Specific Gravity, Urine 1.061 (1.002-1.036)
--- NOTE | 2017-08-24 09:11 | CT ---
PRELIMINARY REPORT/[facility]/EMERGENTY AFTER-HOURS PROCEDURE CT Head Without Intravenous Contrast CLINICAL HISTORY: 52 years old, male; Signs and symptoms; Altered mental status/memory loss; Patient HX: Additional his tory obtained from ems, m52 presents to ed C/O "bugs crawling inside my stomach". Pt was d/c from [facility] today at 1500. Pt was at the ed 1 week ago for similar complaint. Pt last abused marijuana 1 week ago. Pt caveat due to poor historian. TECHNIQUE: Axial computed tomography images of the head/brain without intravenous contrast. COMPARISON: No relevant prior studies available. FINDINGS: Mild cerebral volume loss. Mild chronic small vessel disease. No intracranial hemorrhage or hydrocephalus. No mass, mass effect or midline shift. No effacement of the ventricles, cortical sulci and basal cisterns. Bettencourt-white matter differentiation is preserved. No dense MCA sign. Orbits are unremarkable. Paranasal sinuses are clear. Mastoid air cells are clear. No acute fracture. Soft tissues unremarkable. IMPRESSION: No acute intracranial abnormality. Thank you for allowing us to participate in the care of your patient. Dictated and Authenticated by: Pierre Malcolm MD 08/24/2017 12:53 AM Central Time ([place] & [place]) FINAL REPORT HEAD CT WITHOUT CONTRAST: DATE: 08/24/17. COMPARISON: None. HISTORY: Altered mental status. Memory loss. FINDINGS: I agree with the preliminary [facility] report dictated by Dr. Malcolm. Imaged paranasal sinuses and mast oid air cells unremarkable. Osseous structures intact. No intracranial hemorrhage, midline shift, m ass effect, or ventricular enlargement. IMPRESSION: No acute findings. POS: [facility]
[2017-08-24 09:34] LABS: Medtox Reader # READER 1
[2017-08-24 09:35] LABS: Amphetamine Not Detected (NotDetected); Barbiturates Screen Not Detected (NotDetected); Benzodiazepine Screen Detected (NotDetected); Cocaine Metabolite Screen Not Detected (NotDetected); Medtox Control Line Valid? VALID (VALID); Methadone Not Detected (NotDetected); Methamphetamine Not Detected (NotDetected); Opiate Screen Not Detected (NotDetected); Oxycodone Screen Not Detected (NotDetected); Phencyclidine (PCP) Not Detected (NotDetected); THC/Cannabinoid Screen Detected (NotDetected); Tricyclic Screen Detected (NotDetected)
--- NOTE | 2017-08-24 09:38 | CT ---
PRELIMINARY REPORT/[facility]/EMERGENTY AFTER-HOURS PROCEDURE CT Abdomen and Pelvis With Intravenous Contrast CLINICAL HISTORY: 52 years old, male; Pain; Abdominal pain; Generalized; Patient HX: Additional history obtained from e briana davila presents to ed C/O "bugs crawling inside my stomach". Pt was d/c from [facility] today at 1 500. Pt was at the ed 1 week ago for similar complaint. Pt last abused marijuana 1 week ago. Pt cavea t due to poor historian. TECHNIQUE: Axial computed tomography images of the abdomen and pelvis with intravenous contrast. Coronal reforma tted images were created and reviewed. COMPARISON: No relevant prior studies available. FINDINGS: Lung bases: Minimal bibasilar dependent atelectasis. Mediastinum: Hiatal hernia present. ABDOMEN: Liver: Scattered small subcentimeter foci throughout the liver, largest measuring approximately 7 x 4 millimeter in the left hepatic dome. Gallbladder and bile ducts: Unremarkable Pancreas: Unremarkable. Spleen: Unremarkable. Adrenals: Unremarkable. Kidneys and ureters: Unremarkable. Stomach and bowel: Stool throughout the colon. PELVIS: Appendix: No findings to suggest acute appendicitis. Bladder: Unremarkable. Reproductive: Unremarkable. ABDOMEN and PELVIS: Intraperitoneal space: No free air. No significant fluid collection. Bones/joints: Severe degenerative changes of the left hip with cystic changes and mild flattening of the left acetabular head. No acute fracture. No dislocation. Soft tissues: Unremarkable. Vasculature: Unremarkable. No abdominal aortic aneurysm. Lymph nodes: Scattered non specific subcentimeter mesenteric lymph nodes. IMPRESSION: 1. No acute intra-abdominal findings. 2. Severe degenerative changes of the left hip. 3. Multiple indeterminate small hypodensities in the liver. Recommend dedicated three-phase liver CT or MRI of the liver for further evaluation. Thank you for allowing us to participate in the care of your patient. Dictated and Authenticated by: Pierre Malcolm MD 08/24/2017 1:04 AM Central Time ([place] & [place]) FINAL REPORT CT ABDOMEN AND PELVIS WITH IV CONTRAST: DATE: 08/24/17. TIME: Performed on an emergency basis at 0019 hours. HISTORY: Abdominal pain. COMPARISON: 02/15/17. FINDINGS: Findings agree with the preliminary report by Dr. Malcolm from [facility]. Chronic-type findi ngs are stable. No evidence of obstruction or acute inflammation. POS: [facility]
--- NOTE | 2017-08-24 11:33 | PDOC.EVN ---
Event Note - Event Note Event Note: Hospital Continuity Visit: Darryn Crowder MD, PCP S: 52 yo patient with chronic abdominal pain, chronic substance abuse, and paranoid schizophrenia. Patient has been managed by [facility] for extended period of time. Today he is A&O x3 and is wanting to go to rehab. Patient states he still has the abdominal pain present. He does note that he has vomited because of this issue. No other complaints today. O: Vitals: BP 116/73, Temp 96.8, Resp 16, Pulse 88 General: man in no acute distress. HEENT: Normocephalic and Atraumatic CV: Regular rate and rhythm Respiratory: Clear to auscultation bilaterally, no wheezing Extremities: Moves all four extremities symmetrically, no edema Neurologic: No focal deficits noted. A/P: Agree with primary medical team's plan of care. Will await [facility] evaluation. His personal telephonic case manager will be on site for evaluation as the patient was discharged from [facility] yesterday at noon. Abdominal Pain - Likely 2/2 psychiatric cause as he has been admitted/see multiple times for this same issue. Could be organic cause with stool and gas in the colon on CT. - Colace BID and prn MOM Elevated CK - likely 2/2 dehydration with patient reporting poor PO intake over the past few days - Give IVF at 250ml/hr - Encourage PO intake RUTH - BUN/Cr is 16 suggesting a pre-renal cause - Continue IVF AG Metabolic Acidosis - likely 2/2 Lactic Acidosis - Continue IVF Paranoid Schizophrenia - unsure of home medications at this time, nurse to med rec - Haldol prn, Benadryl prn - [facility] consultation Elevated AST - Hep B checked on last admission - RUQ u/s wnl on previous admission in 07/23 admission - IVF Polysubstance Abuse - UDS pending - encourage cessation Disposition: Stable, will likely benefit from inpatient psychiatric admission. Will await [facility] evaluation.
[2017-08-24] MEDS: Docusate 100 MG CAP PO SCH ×2 (12:49→20:23)
[2017-08-24 13:33] LABS: ALT (SGPT) 22 U/L (8-55); AST (SGOT) 72 U/L (5-34); Albumin 4.5 g/dL (3.5-5.0); Alkaline Phosphatase 51 U/L (40-150); Anion Gap 12 mmol/L (10-20); BUN (Urea Nitrogen) 17 mg/dL (8.4-25.7); CK (CPK) 1878 U/L (30-200); Calc. Creatinine Clearance 54 mL/min (70-130); Calcium 9.1 mg/dL (7.8-10.44); Carbon Dioxide 32 mmol/L (22-29); Chloride 97 mmol/L (98-107); Estimated GFR-MDRD 71; Glucose 119 mg/dL (70-105); Potassium 3.2 mmol/L (3.5-5.1); Protein, Total 7.5 g/dL (6.0-8.3); Sodium 138 mmol/L (136-145)
--- NOTE | 2017-08-24 13:42 | PDOC.EVN ---
Attending Addendum - Attending Addendum Date/Time: 08/24/17 [id number] I personally evaluated the patient and discussed the management with Dr. Gil for further specifics please refer to Admission History and Physical examination. I agree with the History, Examination, Assessment and Plan documented above with any addition or exceptions noted below. Briefly a 52 yo male with paranoid schizophrenia who has had several recent admissions related to abdominal pain and psychosis. Patient recently inpatient dismissed 08/14/2017 to inpatient status at [facility] briefly, his discharge medications not confirmed at this time. Patient known to self induce vomiting and presented with hypokalemia and metabolic acidosis with elevated CK, GI evaluation with abdominal /pelvic CT in ER notable small hypodensities liver as well as head CT for central etiology of emesis. Prior lab HIV,HCV,HBV,RPR and HAV negative. Patient with polysubstance abuse(cocaine and THC) UDS pending at this time. Patient actively with auditory hallucinations, will need medical treatment until cleared and will ultimately need re-evaluation by [facility] for consideration of placement. Patient states currently living with sibling but that has not been confirmed.
[2017-08-25] MEDS: Sodium Chloride 0.9% 1,000 ML IV SCH (04:04)
[2017-08-25 06:09] LABS: ALT (SGPT) 16 U/L (8-55); AST (SGOT) 45 U/L (5-34); Albumin 3.3 g/dL (3.5-5.0); Alkaline Phosphatase 36 U/L (40-150); Anion Gap 7 mmol/L (10-20); BUN (Urea Nitrogen) 10 mg/dL (8.4-25.7); Bilirubin, Total 0.7 mg/dL (0.2-1.2); CK (CPK) 1061 U/L (30-200); Calc. Creatinine Clearance 91 mL/min (70-130); Carbon Dioxide 30 mmol/L (22-29); Chloride 106 mmol/L (98-107); Estimated GFR-MDRD Greater than 90; Glucose 85 mg/dL (70-105); Potassium 3.6 mmol/L (3.5-5.1); Protein, Total 5.3 g/dL (6.0-8.3); Sodium 139 mmol/L (136-145)
--- NOTE | 2017-08-25 06:37 | PDOC.FM ---
- Subjective Subjective: Alfonso Gu seen at bedside this morning. He had no acute events overnight. States that he has chest discomfort this morning. The pain disappeared while having conversation with patient and it was reproducible to palpation. He denies any other complaints. States that [facility] immigration case worker states that patient is fine to go home and continue taking his medications at home. - Objective MAR Reviewed: Yes Vital Signs & Weight: Vital Signs (12 hours) Temp Pulse Resp BP BP Pulse Ox 08/25/17 03:28 98.8 F 79 16 94/52 L 97 08/24/17 19:30 99.4 F 87 14 106/71 98 Weight Weight 63.095 kg I&O: 08/23/17 08/24/17 08/25/17 06:59 06:59 06:59 Intake Total 7500 Balance 7500 Result Diagrams: 08/25/17 04:36 08/25/17 04:36 <Mariano Plascencia - Last Filed: 08/25/17 08:52> - Objective Vital Signs & Weight: Vital Signs (12 hours) Temp Pulse Resp BP BP Pulse Ox 08/25/17 09:55 97.9 F 90 20 08/25/17 09:15 97.9 F 90 20 123/72 08/25/17 03:28 98.8 F 79 16 94/52 L 97 Weight Weight 63.095 kg I&O: 08/24/17 08/25/17 08/26/17 06:59 06:59 06:59 Intake Total 7500 Balance 7500 Result Diagrams: 08/25/17 04:36 08/25/17 04:36 <Dino Sheehan - Last Filed: 08/25/17 11:58> Phys Exam - Physical Examination Constitutional: NAD HEENT: moist MMs, sclera anicteric Neck: no JVD, supple, full ROM Respiratory: no wheezing, no rales, no rhonchi, clear to auscultation bilateral Cardiovascular: RRR, no significant murmur Gastrointestinal: soft, non-tender, no distention Musculoskeletal: no edema, pulses present Neurological: non-focal, normal sensation, moves all 4 limbs Psychiatric: A&O x 3 Skin: no rash, normal turgor <Mariano Plascencia - Last Filed: 08/25/17 08:52> Dx/Plan (1) Rhabdomyolysis Code(s): M62.82 - RHABDOMYOLYSIS Status: Acute (2) Polysubstance abuse Code(s): F19.10 - OTHER PSYCHOACTIVE SUBSTANCE ABUSE, UNCOMPLICATED Status: Chronic (3) Paranoid schizophrenia Code(s): F20.0 - PARANOID SCHIZOPHRENIA Status: Chronic (4) RUTH (acute kidney injury) Code(s): N17.9 - ACUTE KIDNEY FAILURE, UNSPECIFIED Status: Resolved - Plan Plan: 1) Abdominal Pain - Likely 2/2 psychiatric cause as he has been admitted/see multiple times for this same issue. Could be organic cause with stool and gas in the colon on CT. - Will give Colace BID and prn MOM - simethicone prn 2) Elevated CK - likely 2/2 dehydration with patient reporting poor PO intake over the past few days - Give IVF at 250ml/hr - downtrending this morning, 1061 today 3) RUTH-resolved - BUN/Cr is 16 suggesting a pre-renal cause - give IVF - Cr is 0.83 this morning 4) AG Metabolic Acidosis - likely 2/2 Lactic Acidosis - give IVF 5) Paranoid Schizophrenia - resumed home meds - Haldol prn, Benadryl prn 6) Elevated AST - Hep B checked on last admission - RUQ u/s wnl on previous admission in 07/23 admission - uptrended from prior, will give IVF and trend. AST down to 45 this morning 7) Polysubstance Abuse - UDS pending - encourage cessation <Mariano Plascencia - Last Filed: 08/25/17 08:52> Attending Addendum - Attending Addendum Date/Time: 08/25/17 1154 I personally evaluated the patient and discussed the management with Dr. Plascencia I agree with the History, Examination, Assessment and Plan documented above with any addition or exceptions noted below.Patient feeling better this AM up to shower [facility] block and case maker has endorsed assisting patient with follow up patient needs outpatient colon cancer screening and can arrange through PCP. <Dino Sheehan - Last Filed: 08/25/17 11:58>
[2017-08-25 06:51] LABS: Hemoglobin 9.9 g/dL (14.0-18.0); Mean Corpuscular HGB CONC 33.2 g/dL (32.0-36.0); Mean Corpuscular Hemoglobin 33.6 pg (27.0-31.0); Mean Platelet Volume 7.5 fL (7.4-10.4); Platelet Count 226 thou/uL (130-400); RBC Distribution Width 14.2 % (11.5-14.5); Red Blood Cell (RBC) Count 2.96 mill/uL (4.70-6.10); White Blood Cell (WBC) Count 7.2 thou/uL (4.8-10.8)
[2017-08-25 07:45] LABS: Band 2 % (5-11); Eosinophils 1 % (0-10); Lymphocytes 35 % (21-51); MDiff Complete? YES; Macrocytosis SLIGHT = 6-15 cells (100X) (0-5/hpf); Monocytes 7 % (0-10); Neutrophil 54 % (42-75); PLT Morphology Comment Appears Adequate; Polychromasia SLIGHT = 2-3 cells (100X) (0-2/hpf)
[2017-08-25] MEDS ORDERED: Haloperidol Lactate 5 MG/ML VIAL SLOW IVP PRN (08:23)
[2017-08-25] MEDS ORDERED: OLANZapine 5 MG TAB PO SCH (09:00)
[2017-08-25] MEDS ORDERED: busPIRone HCl 10 MG TAB PO SCH (09:00)
[2017-08-25] MEDS ORDERED: Potassium Chloride 20 MEQ TAB PO SCH (09:00)
[2017-08-25] MEDS: Docusate 100 MG CAP PO SCH (09:56)
[2017-08-25 10:13] VITALS: BP 123/72; TEMP 97.9
[2017-08-25] MEDS ORDERED: LURASIDONE HCL 120 MG PO SCH (21:00)
--- NOTE | 2017-08-26 02:26 | DIS-2 ---
DATE OF ADMISSION: 08/24/2017 DATE OF DISCHARGE: 08/25/2017 RESIDENT: Mariano Plascencia M.D. ADMITTING ATTENDING: Neymar Rhodes M.D. DISCHARGE ATTENDING: Dino Sheehan M.D. CONSULTATIONS: 1. Case management. 2. [facility]. PROCEDURES: 1. CT of the abdomen and pelvis. Impression: No acute intra-abdominal findings. Severe degenerati ve change of the left hip. Multiple intermediate small hypodensities in the liver, recommend a 3-pha se liver CT or MRI of the liver for further evaluation. 2. CT of the brain on 08/23/2017. Impression: No acute findings. PRIMARY DIAGNOSES: 1. Acute psychosis. 2. Rhabdomyolysis. 3. Abdominal pain. SECONDARY DIAGNOSES: 1. Paranoid schizophrenia. 2. Polysubstance abuse. 3. Metabolic acidosis. DISCHARGE MEDICATIONS: Resume all home medications includin. Cogentin 2 mg p.o. at bedtime. 2. Buspirone hydrochloride 30 mg p.o. b.i.d. 3. Olanzapine 10 mg p.o. at bedtime. 4. Lurasidone hydrochloride 120 mg p.o. at bedtime. 5. Quetiapine fumarate 300 mg p.o. at bedtime. HISTORY OF PRESENT ILLNESS AND HOSPITAL COURSE: Alfonso Gu is a 52-year-old male with past medical history of paranoid schizophrenia who was admitted on 08/14/2017 through 08/15/2017 for acute kidney injury secondary to self-induced vomiting and similar abdominal pain who was discharged to [facility] presented on 08/24/2017 for similar symptoms initially described in to the physician as bugs craw ling inside of him. He was previously discharged to [facility] and was released at noon earlier the day of admission for this hospital admission. The patient reports visual halluc inations, seeing shadows and auditory hallucinations, voices were telling to take care of himself and nausea, but no vomiting. In the ED, he received 50 mg of ketamine, 5 mg IM Haldol, and 2 mg of Ativ an for agitation; therefore making the history difficult to obtain for the admitting team. He also r eceived 20 mEq of KCl for hypokalemia. Initial labs were significant for potassium of 2.7, creatinin e of 1.69, hemoglobin of 13.5, hematocrit of 39.2. Lactic acid 0.7, AST 68, ALT 24, creatine kinase 1566, creatinine 1.69. The patient was admitted for rhabdomyolysis and acute kidney injury. The pat ient was given IV fluids 250 mL an hour and monitored overnight. The patient improved significantly over his hospital admission, his kidney function improved to creatinine of 0.83 on date of discharge. Initially, his creatine kinase went from 1566 to 1878 on date of discharge, it was down to 1061. M HMR was consulted on 08/24/2017 and recommended that the patient was safe to go home when medically s table. The patient was cleared for discharge on 08/25/2017 with a resolved kidney injury and down tr ending CK with instructions to continue taking his medications and drink lots of fluids. DISPOSITION: Guarded. The patient should do well, although he does have extensive psych history and has had multiple admissions for similar symptoms. [facility] is seeing him and case management saw him in the hospital. We have instructed the patient to follow up with his primary care provider, Dr. Gabbie Crowder and to take his medications. The patient agreed to this and expressed understanding. DISCHARGE INSTRUCTIONS: 1. Location: Home. 2. Diet: Regular diet. 3. Activity: As tolerated. 4. Followup: Follow up with case packer at [facility] and primary care provider.
== END 2017-08-25 13:00 | disposition home or self-care (01) ==
LOC: ERS 21:17 → 2NO 08-24 02:53
PROVIDERS: ADMIT Emergency Medicine; ATTEND Emergency Medicine
DX: R10.84 Generalized abdominal pain (principal); F20.0 Paranoid schizophrenia; M62.82 Rhabdomyolysis; F17.210 Nicotine dependence, cigarettes, uncomplicated; N17.9 Acute kidney failure, unspecified; E87.2 Acidosis; F12.10 Cannabis abuse, uncomplicated; F14.10 Cocaine abuse, uncomplicated; E87.6 Hypokalemia; E86.0 Dehydration; Z79.899 Other long term (current) drug therapy; Z88.8 Allergy status to other drugs, medicaments and biological substances
CPT/HCPCS: 36415; 70450; 74177; 80053; 80306; 80307; 81001; 82550; 83605; 83690; 83735; 85025; 85610; 87086; 93005; 96361; 96365; 96366; 96372; 99406; G0378; J1630; J2060; J3480; Q0162

== ENCOUNTER 2018-01-11 23:22 | Emergency (ER) | payer OTHER | END 2018-01-12 00:37 | disposition home or self-care (01) | LOC: ERS 23:22 | DX: R10.9 Unspecified abdominal pain (principal); I10 Essential (primary) hypertension; F17.210 Nicotine dependence, cigarettes, uncomplicated; Z79.899 Other long term (current) drug therapy | CPT/HCPCS: 99283 ==

== ENCOUNTER 2018-03-31 12:27 | Emergency (ER) | payer OTHER, SELFPAY ==
[2018-03-31] MEDS ORDERED: Lorazepam 2 MG/ML VIAL ONE (12:38)
[2018-03-31] MEDS ORDERED: Pantoprazole 40 MG VIAL ONE (12:46)
[2018-03-31] MEDS ORDERED: Ondansetron PF 4 MG/2 ML Vial ONE ×2 (12:46→13:44)
[2018-03-31 13:18] LABS: #Basophils 0.1 thou/uL (0.0-0.2); #Eosinphils 0.5 thou/uL (0.0-0.7); #Lymphocytes 2.2 thou/uL (1.20-3.40); #Monocytes 0.5 thou/uL (0.11-0.59); #Neutrophils 10.2 thou/uL (1.40-6.50); %Basophils 0.8 % (0.0-1.0); %Lymphocytes 16.3 % (21.0-51.0); %Monocytes 3.8 % (0.0-10.0); Hemoglobin 12.1 g/dL (14.0-18.0); Mean Corpuscular Hemoglobin 31.4 pg (27.0-31.0); Mean Corpuscular Volume 98.2 fL (78.0-98.0); Mean Platelet Volume 6.9 fL (7.4-10.4); Platelet Count 346 thou/uL (130-400); RBC Distribution Width 14.2 % (11.5-14.5); Red Blood Cell (RBC) Count 3.85 mill/uL (4.70-6.10); White Blood Cell (WBC) Count 13.5 thou/uL (4.8-10.8)
[2018-03-31 13:40] LABS: ALT (SGPT) 38 U/L (8-55); AST (SGOT) 45 U/L (5-34); Albumin 4.9 g/dL (3.5-5.0); Alkaline Phosphatase 54 U/L (40-150); Anion Gap 15 mmol/L (10-20); BUN (Urea Nitrogen) 27 mg/dL (8.4-25.7); Bilirubin, Total 0.4 mg/dL (0.2-1.2); Calc. Creatinine Clearance 0 mL/min (70-130); Calcium 9.9 mg/dL (7.8-10.44); Carbon Dioxide 25 mmol/L (22-29); Chloride 107 mmol/L (98-107); Estimated GFR-MDRD 78; Globulin 2.9 g/dL (2.4-3.5); Glucose 112 mg/dL (70-105); Lipase 14 U/L (8-78); Magnesium 2.1 mg/dL (1.6-2.6); Potassium 3.8 mmol/L (3.5-5.1); Protein, Total 7.8 g/dL (6.0-8.3); Sodium 143 mmol/L (136-145)
[2018-03-31] MEDS ORDERED: Haloperidol Lactate 5 MG/ML VIAL ONE (13:44)
--- NOTE | 2018-03-31 14:05 | CT ---
CT ABDOMEN AND PELVIS WITH IV CONTRAST: Date: 03/31/18 HISTORY: Abdominal pain. Vomiting. COMPARISON: 08/24/17. FINDINGS: Lung bases are clear. Tiny cysts within the liver are stable. The spleen, kidneys, adrenal glands, an d pancreas have a normal CT appearance. No enlarged lymph nodes or free fluid. Urinary bladder is unr emarkable. Appendix is not well delineated. No inflammation. No evidence of bowel obstruction. IMPRESSION: No significant abnormalities are demonstrated. POS: [facility]
[2018-03-31] MEDS ORDERED: ISOVUE-370 76%-LOCM 1 ML ONE (14:50)
== END 2018-03-31 16:11 | disposition home or self-care (01) ==
LOC: ERS 12:27
DX: F20.9 Schizophrenia, unspecified (principal); I10 Essential (primary) hypertension; F17.210 Nicotine dependence, cigarettes, uncomplicated; Z79.899 Other long term (current) drug therapy
CPT/HCPCS: 36415; 74177; 80053; 83690; 83735; 84484; 85025; 93005; 96361; 96372; 96374; 96375; 96376; C9113; J0500; J1630; J2060; J2405; Q9966

== ENCOUNTER 2018-04-01 06:56 | Emergency (ER) | payer SELFPAY ==
[2018-04-01] MEDS ORDERED: Ondansetron PF 4 MG/2 ML Vial ONE (07:45)
[2018-04-01] MEDS ORDERED: Lorazepam 2 MG/ML VIAL ONE (07:45)
[2018-04-01 08:27] LABS: #Lymphocytes 1.7 thou/uL (1.20-3.40); #Monocytes 0.7 thou/uL (0.11-0.59); #Neutrophils 9.1 thou/uL (1.40-6.50); %Basophils 0.3 % (0.0-1.0); %Eosinophils 0.2 % (0.0-10.0); %Lymphocytes 14.6 % (21.0-51.0); %Neutrophils 78.9 % (42.0-75.0); Hemoglobin 10.8 g/dL (14.0-18.0); Mean Corpuscular HGB CONC 32.3 g/dL (32.0-36.0); Mean Corpuscular Hemoglobin 31.5 pg (27.0-31.0); Mean Corpuscular Volume 97.4 fL (78.0-98.0); Mean Platelet Volume 7.1 fL (7.4-10.4); Platelet Count 302 thou/uL (130-400); RBC Distribution Width 14.2 % (11.5-14.5); Red Blood Cell (RBC) Count 3.42 mill/uL (4.70-6.10); White Blood Cell (WBC) Count 11.5 thou/uL (4.8-10.8)
[2018-04-01 08:48] LABS: ALT (SGPT) 45 U/L (8-55); AST (SGOT) 58 U/L (5-34); Acetaminophen Less than 6.0 mcg/mL (10.0-30.0); Albumin 4.6 g/dL (3.5-5.0); Alcohol Less than 10 mg/dL (Less than 10); Alkaline Phosphatase 52 U/L (40-150); Anion Gap 14 mmol/L (10-20); BUN (Urea Nitrogen) 19 mg/dL (8.4-25.7); Bilirubin, Total 0.5 mg/dL (0.2-1.2); CK (CPK) 771 U/L (30-200); Calc. Creatinine Clearance 0 mL/min (70-130); Calcium 9.5 mg/dL (7.8-10.44); Carbon Dioxide 24 mmol/L (22-29); Chloride 104 mmol/L (98-107); Estimated GFR-MDRD Greater than 90; Globulin 2.9 g/dL (2.4-3.5); Glucose 116 mg/dL (70-105); Potassium 3.4 mmol/L (3.5-5.1); Protein, Total 7.5 g/dL (6.0-8.3); Salicylate Less than 8.0 mg/dL (15.0-30.0); Sodium 139 mmol/L (136-145)
[2018-04-01 11:06] LABS: Bilirubin Negative (Negative); Blood, Urine Negative (Negative); Clarity CLEAR (Clear); Glucose, Urine (Dipstick) Negative (Negative); Leukocyte Negative (Negative); Nitrite Negative (Negative); Protein, Urine (Dipstick) 30 mg/dL (Neg-Trace); Specific Gravity, Urine 1.025 (1.002-1.036); Urobilinogen 0.2 mg/dL (0.2-1.0)
[2018-04-01 11:17] LABS: Bacteria/HPF None Seen HPF (None Seen); Hyaline Casts/LPF NONE SEEN LPF (0-3 Hyaline); RBC/HPF None Seen HPF (0-3); Squamous Epithelial 0-3 HPF (0-3); WBC/HPF None Seen HPF (0-3)
[2018-04-01 11:20] LABS: Amphetamine Not Detected (NotDetected); Barbiturates Screen Not Detected (NotDetected); Benzodiazepine Screen Detected (NotDetected); Cocaine Metabolite Screen Not Detected (NotDetected); Medtox Control Line Valid? VALID (VALID); Medtox Reader # READER 1; Methadone Not Detected (NotDetected); Methamphetamine Not Detected (NotDetected); Opiate Screen Not Detected (NotDetected); Oxycodone Screen Not Detected (NotDetected); Phencyclidine (PCP) Not Detected (NotDetected); THC/Cannabinoid Screen Detected (NotDetected); Tricyclic Screen Not Detected (NotDetected)
[2018-04-02] MEDS ORDERED: Nicotine 7 MG PATCH TOP SCH (12:00)
== END 2018-04-02 15:00 | disposition home or self-care (01) ==
LOC: ERS 06:56
DX: F23 Brief psychotic disorder (principal); I10 Essential (primary) hypertension; F17.210 Nicotine dependence, cigarettes, uncomplicated; F32.9 Major depressive disorder, single episode, unspecified
CPT/HCPCS: 36415; 80053; 80306; 80307; 81003; 81015; 82550; 84443; 85025; 93005; 96361; 96372; 96374; 96375; J0500; J2060; J2405

== ENCOUNTER 2018-05-28 01:19 | Emergency (ER) | payer MEDICAID, OTHER ==
[2018-05-28] MEDS ORDERED: Ondansetron PF 4 MG/2 ML Vial ONE (01:40)
[2018-05-28 01:53] LABS: #Basophils 0.1 thou/uL (0.0-0.2); #Eosinphils 0.2 thou/uL (0.0-0.7); #Monocytes 0.7 thou/uL (0.11-0.59); #Neutrophils 5.6 thou/uL (1.40-6.50); %Basophils 1.3 % (0.0-1.0); %Eosinophils 2.4 % (0.0-10.0); %Lymphocytes 31.2 % (21.0-51.0); %Monocytes 7.1 % (0.0-10.0); %Neutrophils 58.1 % (42.0-75.0); Hemoglobin 9.8 g/dL (14.0-18.0); Mean Corpuscular HGB CONC 30.7 g/dL (32.0-36.0); Mean Corpuscular Hemoglobin 26.3 pg (27.0-31.0); Mean Corpuscular Volume 85.6 fL (78.0-98.0); Mean Platelet Volume 7.4 fL (7.4-10.4); Platelet Count 362 thou/uL (130-400); RBC Distribution Width 17.8 % (11.5-14.5); Red Blood Cell (RBC) Count 3.73 mill/uL (4.70-6.10); White Blood Cell (WBC) Count 9.7 thou/uL (4.8-10.8)
[2018-05-28 02:13] LABS: ALT (SGPT) 9 U/L (8-55); AST (SGOT) 17 U/L (5-34); Alkaline Phosphatase 45 U/L (40-150); Anion Gap 13 mmol/L (10-20); BUN (Urea Nitrogen) 18 mg/dL (8.4-25.7); Bilirubin, Total 0.3 mg/dL (0.2-1.2); CK (CPK) 140 U/L (30-200); Calc. Creatinine Clearance 0 mL/min (70-130); Calcium 8.4 mg/dL (7.8-10.44); Carbon Dioxide 20 mmol/L (22-29); Chloride 104 mmol/L (98-107); Estimated GFR-MDRD 81; Globulin 2.3 g/dL (2.4-3.5); Glucose 107 mg/dL (70-105); Lipase 20 U/L (8-78); Potassium 3.4 mmol/L (3.5-5.1); Protein, Total 6.3 g/dL (6.0-8.3); Sodium 134 mmol/L (136-145)
[2018-05-28 07:34] LABS: Bilirubin Negative (Negative); Blood, Urine Negative (Negative); Clarity CLEAR (Clear); Glucose, Urine (Dipstick) Negative (Negative); Leukocyte Negative (Negative); Nitrite Negative (Negative); Protein, Urine (Dipstick) Negative (Neg-Trace); Specific Gravity, Urine 1.025 (1.002-1.036)
--- NOTE | 2018-05-28 07:57 | RAD ---
CHEST 1 VIEW: Date: 05/28/18 INDICATION: Chest pain. COMPARISON: Prior exam dated 07/23/17. FINDINGS: Lungs are clear. Cardiomediastinal silhouette is within normal limits. No acute osseous abnormality i s evident. IMPRESSION: No acute cardiopulmonary abnormality. POS: [facility]
--- NOTE | 2018-05-28 08:44 | CT ---
PRELIMINARY REPORT/[facility]/EMERGENCY AFTER HOURS PROCEDURE: EXAM: CT Abdomen and Pelvis With Contrast EXAM DATE/TIME: 05/28/2018 1:51 AM CLINICAL HISTORY: 53 years old, male; Pain; Abdominal pain; Acute; Patient HX: PT was at home. Roommates found him "unc oncious" engine crew woke him up. Hr 80s BP 80's systolic. PT got up on his own and got dressed. 12 l ead to ems showed anterior septal stemi. Only complaint is abdominal pain. PT has only had his own serequel and marijuana TECHNIQUE: Imaging protocol: Axial computed tomography images of the abdomen and pelvis with intravenous contras t. Coronal reformatted images were created and reviewed. COMPARISON: No relevant prior studies available. FINDINGS: Lower thorax: No acute findings. ABDOMEN: Liver: No solid mass. Low density rounded structures consistent with small cysts are noted in the dennise er. Gallbladder and bile ducts: No calcified stones. No ductal dilation. Pancreas: No acute pathology. No ductal dilation. Spleen: No solid mass. No splenomegaly. Adrenals: No mass. Kidneys and ureters: No solid mass. No hydronephrosis. Stomach and bowel: There is moderate colonic fecal retention. No obstruction. No mucosal thickening. Appendix: The appendix is not visualized. PELVIS: Bladder: Unremarkable as visualized. Reproductive: Unremarkable as visualized. ABDOMEN and PELVIS: Intraperitoneal space: No free air. Bones/joints: No acute fracture. No dislocation. Severe left and moderate right degenerative hip joint changes. Soft tissues: Unremarkable. Vasculature: No abdominal aortic aneurysm. Lymph nodes: No enlarged lymph nodes. IMPRESSION: There is moderate colonic fecal retention. No free air or free fluid. No hematoma. Severe left and moderate right degenerative hip joint changes. Thank you for allowing us to participate in the care of your patient. Dictated and Authenticated by: Dacia Soni MD 05/28/2018 3:11 AM Central Time ([place] & [place]) FINAL REPORT EMERGENCY AFTER HOURS CT ABDOMEN AND PELVIS PERFORMED WITH CONTRAST ENHANCEMENT: Date: 05/28/18 HISTORY: Abdominal pain. COMPARISON: 03/31/18 study. FINDINGS: The lung bases show some linear atelectatic change. Small hypodensities within the liver are stable, statistically most likely small cysts. Spleen, pancr eas and gallbladder regions appear unremarkable. Right and left adrenal glands, and right and left kidneys are normal in size. No significant periaort ic or mesenteric adenopathy. CT of pelvis was performed with contrast enhancement. There is no evidence of adenopathy, mass, or fr ee fluid. Appendix is difficult to definitely identify, but no inflammatory change. Review of osseous structures show marked arthritic changes of the left hip. There are also mild arthr itic changes of the right hip and spine. IMPRESSION: No acute intra-abdominal abnormality. This report is in agreement with the preliminary report issued by [facility]. POS: [facility]
[2018-05-28] MEDS ORDERED: ISOVUE-370 76%-LOCM 1 ML ONE (15:41)
== END 2018-05-28 09:30 | disposition home or self-care (01) ==
LOC: ERS 01:19
DX: E86.0 Dehydration (principal); R10.9 Unspecified abdominal pain; I10 Essential (primary) hypertension; F32.9 Major depressive disorder, single episode, unspecified; Z79.899 Other long term (current) drug therapy; F17.210 Nicotine dependence, cigarettes, uncomplicated
CPT/HCPCS: 36415; 71045; 74177; 80053; 81003; 82550; 83605; 83690; 84484; 85025; 93005; 94760; 96361; 96374; J2405; Q9966

== ENCOUNTER 2019-03-25 17:42 | Emergency (ER) | payer OTHER ==
[2019-03-25 18:25] LABS: #Basophils 0.1 thou/uL (0.0-0.2); #Eosinphils 0.5 thou/uL (0.0-0.7); #Lymphocytes 2.5 thou/uL (1.20-3.40); #Monocytes 0.5 thou/uL (0.11-0.59); #Neutrophils 2.6 thou/uL (1.40-6.50); %Eosinophils 7.8 % (0.0-10.0); %Lymphocytes 39.8 % (21.0-51.0); %Monocytes 7.8 % (0.0-10.0); %Neutrophils 42.5 % (42.0-75.0); Hemoglobin 11.2 g/dL (14.0-18.0); Mean Corpuscular HGB CONC 31.2 g/dL (32.0-36.0); Mean Corpuscular Hemoglobin 27.3 pg (27.0-31.0); Mean Corpuscular Volume 87.3 fL (78.0-98.0); Mean Platelet Volume 7.5 fL (7.4-10.4); Platelet Count 370 thou/uL (130-400); RBC Distribution Width 16.7 % (11.5-14.5); Red Blood Cell (RBC) Count 4.11 mill/uL (4.70-6.10); White Blood Cell (WBC) Count 6.2 thou/uL (4.8-10.8)
[2019-03-25 18:51] LABS: ALT (SGPT) 9 U/L (8-55); AST (SGOT) 19 U/L (5-34); Albumin 4.5 g/dL (3.5-5.0); Alkaline Phosphatase 57 U/L (40-110); Anion Gap 11 mmol/L (10-20); BUN (Urea Nitrogen) 8 mg/dL (8.4-25.7); Bilirubin, Total 0.4 mg/dL (0.2-1.2); Calc. Creatinine Clearance 0 mL/min (70-130); Calcium 9.2 mg/dL (7.8-10.44); Carbon Dioxide 29 mmol/L (22-29); Chloride 104 mmol/L (98-107); Estimated GFR-MDRD 89; Globulin 3.1 g/dL (2.4-3.5); Glucose 100 mg/dL (70-105); Lipase 15 U/L (8-78); Potassium 4.1 mmol/L (3.5-5.1); Protein, Total 7.6 g/dL (6.0-8.3); Sodium 140 mmol/L (136-145)
[2019-03-25 19:03] LABS: Bacteria/HPF None Seen HPF (None Seen); Bilirubin Negative (Negative); Blood, Urine Negative (Negative); Clarity Clear (Clear); Glucose, Urine (Dipstick) Normal (Negative); Leukocyte Negative Leu/uL (Negative); Nitrite Negative (Negative); Protein, Urine (Dipstick) 30 mg/dL (Neg-Trace); RBC/HPF 0-3 HPF (0-3); Squamous Epithelial 0-3 HPF (0-3); WBC/HPF 0-3 HPF (0-3)
== END 2019-03-25 22:06 | disposition home or self-care (01) ==
LOC: ERS 17:42
DX: K57.92 Diverticulitis of intestine, part unspecified, without perforation or abscess without bleeding (principal); F32.9 Major depressive disorder, single episode, unspecified; F20.9 Schizophrenia, unspecified; F17.210 Nicotine dependence, cigarettes, uncomplicated; Z79.899 Other long term (current) drug therapy
CPT/HCPCS: 36415; 80053; 81003; 81015; 83690; 85025; 99284

== ENCOUNTER 2019-04-09 01:28 | Observation (INO) | payer OTHER ==
[2019-04-09 01:55] LABS: #Basophils 0.1 thou/uL (0.0-0.2); #Eosinphils 0.4 thou/uL (0.0-0.7); #Monocytes 0.8 thou/uL (0.11-0.59); #Neutrophils 2.1 thou/uL (1.40-6.50); %Basophils 2.3 % (0.0-1.0); %Eosinophils 6.1 % (0.0-10.0); %Lymphocytes 46.3 % (21.0-51.0); %Monocytes 12.4 % (0.0-10.0); Hemoglobin 11.6 g/dL (14.0-18.0); Mean Corpuscular HGB CONC 32.7 g/dL (32.0-36.0); Mean Corpuscular Hemoglobin 28.3 pg (27.0-31.0); Mean Corpuscular Volume 86.5 fL (78.0-98.0); Mean Platelet Volume 7.2 fL (7.4-10.4); Platelet Count 362 thou/uL (130-400); RBC Distribution Width 17.1 % (11.5-14.5); White Blood Cell (WBC) Count 6.4 thou/uL (4.8-10.8)
[2019-04-09] MEDS ORDERED: Promethazine HCl 25 MG/ML VIAL ONE ×3 (02:16→04:45)
[2019-04-09] MEDS ORDERED: Lidocaine Viscous Sol 2% 15 ml UD Cup ONE (02:22)
[2019-04-09] MEDS ORDERED: Mag-Al 1200 mg/1200 mg/30 ML UDCUP ONE (02:22)
[2019-04-09 02:32] LABS: ALT (SGPT) 11 U/L (8-55); AST (SGOT) 16 U/L (5-34); Albumin 4.4 g/dL (3.5-5.0); Alkaline Phosphatase 49 U/L (40-110); Anion Gap 12 mmol/L (10-20); BUN (Urea Nitrogen) 13 mg/dL (8.4-25.7); Bilirubin, Total 0.4 mg/dL (0.2-1.2); Calc. Creatinine Clearance 0 mL/min (70-130); Calcium 9.1 mg/dL (7.8-10.44); Carbon Dioxide 28 mmol/L (22-29); Chloride 102 mmol/L (98-107); Estimated GFR-MDRD 77; Glucose 115 mg/dL (70-105); Lipase 20 U/L (8-78); Potassium 3.4 mmol/L (3.5-5.1); Protein, Total 7.4 g/dL (6.0-8.3); Sodium 139 mmol/L (136-145)
[2019-04-09] MEDS ORDERED: Morphine 2 MG/ML SYRINGE ONE (02:45)
[2019-04-09] MEDS ORDERED: Famotidine/PF 20 mg/2ml Vial ONE (03:03)
--- NOTE | 2019-04-09 04:51 | PDOC.FPRHP ---
- History of Present Illness Chief Complaint: Intractable N/V History of Present Illness: Patient is a 54 y/o male with a PMH significant for Paranoid Schizophrenia and multiple ER visits for ABD Pain, N/V in the past who presents to the ED for evaluation of ABD Pain. The patient states that he has had the pain for 3 days, that it is dull in nature and moves from his LUQ to his RUQ, and that hot baths make it better. He went on to state that whenever gets pain like this he comes to the hospital because Quetiapine and Morphine always make the pain go away. He was unsure if the pain was relieved with position or made better/worse with food. He does not look at his BMs and is unsure if they are loose, runny or contain blood. Patient denies fevers, chills, VILLARREAL, changes in vision, oral ulcers, rhinorrhea, epistaxis, dysuria, hematuria, rashes, trauma to the ABD, recent falls, syncopal episodes, or alterations in his mental states. The patient has never had a cholecystectomy or appendectomy, and his only ABD surgery is a remote inguinal hernia repair. Patient states that he has seen a specialist in [place], [place] and that they "didn' t do anything for me." Patient was writhing in his hospital bed and crying during the evaluation, and was also noted to burp / dry heave excessively. ED Course: s/p Promethazine x3, Hyoscyamine, Famotidine, GI Cocktail, NS 1L Bolus EKG: NSR Trops: Negative x1 Lipase: 20 CT ABD/Pelvis: - Allergies/Adverse Reactions Allergies Allergy/AdvReac Type Severity Reaction Status Date / Time divalproex sodium Allergy Verified 02/05/13 01:09 [From Depakote] risperidone [From Risperdal] Allergy Verified 02/05/13 01:09 valproic acid Allergy Verified 07/24/17 03:54 - Home Medications Medication Instructions Recorded Confirmed Type Buspirone HCl [busPIRone HCl] 30 mg PO BID 07/24/17 04/09/19 History Lurasidone HCl [Latuda] 120 mg PO HS 07/24/17 04/09/19 History OLANZapine [Olanzapine] 10 mg PO HS 07/24/17 04/09/19 History QUEtiapine Fumarate [SEROquel] 50 mg PO HS 08/24/17 04/09/19 History - History PMHx: Paranoid Schizophrenia, LBP, Polysubstance Abuse PSHx: Inguinal Hernia Repair FHx: Patient denied a FHx of ABD Pain, DM2 or HTN Social: Patient admits to occasional EtOH use, daily tobacco abuse (1 PPD), and monthly MJ abuse, as well as remote cocaine and methamphetamine abuse. Meds: Patient is unsure of his Medication List because it is filled by [facility] - will request records Allergies: Divalproex, Risperidone, Valproic Acid Code: Full - Review of Systems General: denies: fever/chills, weight/appetite/sleep changes Eyes: denies: vision changes ENT: denies: nasal congestion, rhinorrhea Respiratory: denies: cough, congestion Cardiovascular: denies: chest pain, edema Gastrointestinal: reports: nausea, vomiting, abdominal pain. denies: diarrhea, constipation, GI bleeding Genitourinary: denies: dysuria, discharge Skin: denies: rashes, lesions, itching Neurological: denies: syncope, weakness Psychological: reports: other (Patient admits to a Hx of Paranoid Schizophrenia) - Vital signs BP: [126/88] HR: [96] RR: [17] Tmax: [97.5] Pox: [96]% on [Room Air] Wt: [75 kg] - Physical Exam Constitutional: other -Constitutional: Patient was writhing in bed and screaming, occasionally hitting his head and complaining of pain throughout the evaluation. HEENT: normocephalic and atraumatic, PERRLA, conjunctiva clear, no scleral icterus, grossly normal vision, grossly normal hearing, normal nasal mucosa, MMM , other (Extremely poor dentition w/ multiple missing teeth) Neck: supple, FROM, trachea midline, no LAD Chest: no-tender to palpation, no lesions Heart: RRR, normal S1/S2, no murmurs/rubs/gallops, pulses present, no edema Lungs: CTAB, no respiratory distress, good air movement, no rales/rhonchi, no wheezing, no retractions Abdomen: soft, bowel sounds present, no masses/distention, no hernias -Abdomen: TTP on LUQ and LLQ - exam limited by patient compliance Musculoskeletal: normal structure, normal tone, ROM grossly normal Neurological: no focal deficit Skin: no rash/lesions, no jaundice Heme/Lymphatic: no unusual bruising or bleeding, no purpura, no petechia, no LAD Psychiatric: other (Patient denied internal/external stimuli to one of the residents, but admitted to hearing voices later in a separate portion of the evaluation) FMR H&P: Results - Labs Result Diagrams: 04/09/19 01:50 04/09/19 01:50 Lab results: WBC 6.4 thou/uL (4.8-10.8) 04/09/19 01:50 Hgb 11.6 g/dL (14.0-18.0) L 04/09/19 01:50 Hct 35.5 % (42.0-52.0) L 04/09/19 01:50 MCV 86.5 fL (78.0-98.0) 04/09/19 01:50 Plt Count 362 thou/uL (130-400) 04/09/19 01:50 Neutrophils % 33.0 % (42.0-75.0) L 04/09/19 01:50 Sodium 139 mmol/L (136-145) 04/09/19 01:50 Potassium 3.4 mmol/L (3.5-5.1) L 04/09/19 01:50 Chloride 102 mmol/L (98-107) 04/09/19 01:50 Carbon Dioxide 28 mmol/L (22-29) 04/09/19 01:50 BUN 13 mg/dL (8.4-25.7) 04/09/19 01:50 Creatinine 1.18 mg/dL (0.7-1.3) 04/09/19 01:50 Glucose 115 mg/dL (70-105) H 04/09/19 01:50 Calcium 9.1 mg/dL (7.8-10.44) 04/09/19 01:50 Total Bilirubin 0.4 mg/dL (0.2-1.2) 04/09/19 01:50 AST 16 U/L (5-34) 04/09/19 01:50 ALT 11 U/L (8-55) 04/09/19 01:50 Alkaline Phosphatase 49 U/L (40-110) 04/09/19 01:50 Serum Total Protein 7.4 g/dL (6.0-8.3) 04/09/19 01:50 Albumin 4.4 g/dL (3.5-5.0) 04/09/19 01:50 Lipase 20 U/L (8-78) 04/09/19 01:50 FMR H&P: A/P - Problem List (1) Chronic bilateral low back pain Current Visit: Yes Status: Acute Code(s): M54.5 - LOW BACK PAIN; G89.29 - OTHER CHRONIC PAIN (2) Abdominal pain Current Visit: No Status: Chronic Priority: High Code(s): R10.9 - UNSPECIFIED ABDOMINAL PAIN Qualifiers: Abdominal location: generalized Qualified Code(s): R10.84 - Generalized abdominal pain (3) Paranoid schizophrenia Current Visit: No Status: Chronic Priority: Medium Code(s): F20.0 - PARANOID SCHIZOPHRENIA (4) Polysubstance abuse Current Visit: No Status: Chronic Code(s): F19.10 - OTHER PSYCHOACTIVE SUBSTANCE ABUSE, UNCOMPLICATED (5) Hypokalemia Current Visit: No Status: Resolved Code(s): E87.6 - HYPOKALEMIA - Plan Patient is a 54 y/o male with a PMH significant for Paranoid Schizophrenia, Polysubstance Abuse and recurrent ED visits for ABD Pain who presents to the ED for N/V and ABD Pain. 1. Intractable N/V -Patient has presented multiple times for this problem in the past -Per ED staff, patient vomited several times while being evaluated - minimal gastric secretions noted in trash w/o blood or stomach contents -s/p Promethazine x3, Hyoscyamine, Famotidine, GI Cocktail, NS 1L Bolus -Will order Zofran PRN and avoid medications with anti-dopaminergic properties due to Psychiatric History and Medication List -Patient was able to tolerate PO intake during evaluation and does not appear volume depleted - will continue NS @ 150 ml/hr and initiate a trial of HH w/ Low Sodium Diet 2. ABD Pain -Patient has presented multiple times for this problem in the past -States that "Seroquel and Morphine always make it go away" - will avoid Morphine use at this time -CXR: NAF -CT ABD/Pelvis: Awaiting Radiology Interpretation -UA: WNL -Lipase: 20 -Tylenol PRN 3. Paranoid Schizophrenia -Possibly confounding factor #1, #2 and #4 -Will request records from [facility] 4. Polysubstance Abuse -UDS: Opiates, Cannabinoids, Tricyclics -Suspect drug seeking behavior may contribute to #1 and #2 - will avoid use of opiates at this time 5. Hypokalemia -Will supplement w/ PO K-Dur 6. Chronic LBP -Patient did not endorse LBP during evaluation -Tylenol PRN -Continue to monitor PCP: CC Code: Full Diet: HH w/ Low Sodium Activity: Ad parveen - Will Likely Require Sitter IVF: NS @ 150 ml/hr VTE PPx: SCDs - Efe Score: 0 Dispo: Patient is currently stable and admitted to the Medical Floor for observation. No obvious source of patient's ABD Pain and N/V. Patient appears to be tolerating PO intake well despite CC. Will request records from [facility] and restart home medication regimen. Await CT ABD/Pelvis read from Radiology - plan for DC if no identifiable source of pain can be identified. Expected LOS < 24H. FMR H&P: Upper Level - Plan Date/Time: 04/09/19 7563 PCP: CC- [facility] and [facility], Has also been seen at [facility], does not remember last time seen anywhere except [facility] HPI: This is a 54 yo M with hx of paranoid schizophrenia and polysubstance abuse being admitted for intractable N/V. The patient is a very poor historian. He states the pain started yesterday, then says it was 3-4 days ago. Says the pain is worse after eating or vomiting, unable to characterize the pain, localized to LUQ and does not radiate. Says this is the same pain I get every time I come to the ER. Says morphine and Seroquel help it. He was prescribed Cipro and flaggyl for diverticulitus on 03/25, unclear if he took these. He denies diarrhea, denies fevers, says he has had chills. Denies blood in vomit. Says he cannot eat or drink but then chugged a full glass of ice water. He denies SI/HI. He states he does hear voices, they mumble to him, they do not tell him to harm himself. He denies seeing things that are not there. He lives at home with history and has multiple admissions to [facility] previously. REVIEW OF SYSTEMS: Gen: see hpi Neuro: denies headache ENT: no hearing changes, no sore throat, no congestion Resp: denies cough, SOB Card: denies CP GI: see hpi Skin: no rash, no erythema PHYSICAL EXAMINATION: General: NAD, alert and oriented x3 HEENT: PERRLA, EOMI, normal sclera, Neck: Supple. Full ROM. Heart/Cardiovascular System: RRR, Cap refill < 3 seconds, no rub, no murmur Lungs/Respiratory System: CTA-B, no resp distress Abdomen/Gastro-Intestinal System: soft, non-distended, no guarding/rebound, tender to palpation in LUQ Extremities: Warm extremities. No cyanosis or edema Neuro: No gross deficits appreciated. CN 2-12 grossly intact Psychiatry: Awake, Alert, paces around room Skin: No lesions, rashes, or ulcers Musculoskeletal: Full ROM A/P: # LUQ abdominal pain, N/V - Workup still pending UA, UDS, Ct/Abd pelvis - Recurrent abdominal pain likely related to psychiatric disturbances - Differential includes nephrolithiasis, SBO, diverticulitis. Mesenteric ischemia is possible but less likely than the above, CT pending. - Received phenrgan, 1L NS in ED, cont with Zofran # Paranoid Schizophrenia - Recd home meds from clinic in August 2017, will hold off on starting meds until receiving records from [facility] - Call [facility] for eval once patient is medically cleared. # Hypokalemia - replete Fluids: NS Code status: full PPx: efe 0, unlikely to tolerate SCDs Dispo: medical clearance then [facility] eval Addendum - Attending - Attending Attestation Date/Time: 04/09/19 7958 I personally evaluated the patient and discussed the management with Dr. Thornton I agree with the History, Examination, Assessment and Plan documented above with any additions or exceptions noted below. 54 yo AA male with recurrent abdominal pain, history of mental illness and polysubstance abuse. Patient evaluated in ER and admitted with abdominal pain N/ V and associated hypokalemia. PMHX:multiple Er visits and prior admissions with previous rhabdomylosis and RUTH. Patient with Paranoid Schizophrenia with questionable compliance with treatment. PE talkative NAD endorses hearing voices Afebrile VSS HEENT wnl abdomen soft no guarding rebound or tenderness. CT abdomen no active process lab: lipase wnl, WBC 6,400, H/H 11.6/35.5, LFTs wnl, positive UDS for opiates, tricyclics and canniboids.U/A no hematuria neg nitrate. Patient with active auditory hallucinations Assessment: recurrent abdominal pain and nausea history cyclic N/V related to THC no s/s pancreatitis, cholecystitis, GERD, ischemic mesentery, Phorphyria, nephrolithiasis ,SBO,appendicitis or diverticulitis abdomen is soft nonsurgical. Patient is taking po well . Plan place in observation he will need MHMR evaluation and he is currently medically cleared for that he would potentially benefit from further outpatient evaluation of recurrent abdominal pain. Patient encourage to abstain from substance abuse.
[2019-04-09] MEDS ORDERED: Ondansetron ODT 4 MG TAB SL PRN (05:59)
[2019-04-09] MEDS ORDERED: Ondansetron PF 4 MG/2 ML Vial IVP PRN (05:59)
[2019-04-09 06:13] LABS: Bacteria/HPF None Seen HPF (None Seen); Bilirubin Negative (Negative); Blood, Urine Negative (Negative); Clarity Clear (Clear); Glucose, Urine (Dipstick) Normal (Negative); Leukocyte Negative Leu/uL (Negative); Mucous/LPF 2+ LPF (<2+); Nitrite Negative (Negative); Protein, Urine (Dipstick) 50 mg/dL (Neg-Trace); RBC/HPF 0-3 HPF (0-3); Squamous Epithelial 0-3 HPF (0-3); Urobilinogen Normal mg/dL (Less than 2); WBC/HPF 0-3 HPF (0-3); White Blood Cell Cast 0-3 LPF (None Seen)
[2019-04-09 06:18] LABS: Amphetamine Not Detected (NotDetected); Barbiturates Screen Not Detected (NotDetected); Benzodiazepine Screen Not Detected (NotDetected); Cocaine Metabolite Screen Not Detected (NotDetected); Medtox Reader # READER 1; Methadone Not Detected (NotDetected); Methamphetamine Not Detected (NotDetected); Opiate Screen Detected (NotDetected); Oxycodone Screen Not Detected (NotDetected); Phencyclidine (PCP) Not Detected (NotDetected); THC/Cannabinoid Screen Detected (NotDetected); Tricyclic Screen Detected (NotDetected)
[2019-04-09 06:19] LABS: Medtox Control Line Valid? VALID (VALID)
[2019-04-09] MEDS: Sodium Chloride 0.9% 1,000 ML IV SCH ×2 (06:30→15:06)
--- NOTE | 2019-04-09 07:18 | RAD ---
CHEST 1 VIEW: Date: 04/09/2019 COMPARISON: 05/28/18. HISTORY: Pain. FINDINGS: Normal cardiac silhouette. Lungs and pleural spaces are clear. No pneumothorax or osseous abnormaliti es. IMPRESSION: No acute cardiopulmonary process. POS: [facility]
[2019-04-09] MEDS ORDERED: Potassium Chloride 20 MEQ TAB PO SCH (07:45)
--- NOTE | 2019-04-09 08:11 | CT ---
ABDOMEN CT WITH CONTRAST PELVIC CT WITH CONTRAST: HISTORY: Left lower quadrant pain. Right lower quadrant pain. Hernia repair in the past. COMPARISON: 05/28/2018. FINDINGS: ABDOMEN CT: Lung bases are clear. Normal heart size. No pericardial effusion. Normal-caliber aorta. No paraaortic fat stranding. Portal vein is patent. Stable subcentimeter hypodensities in the hepatic parenchyma, too small to characterize but statistic ally favored to be hepatic cysts. Spleen, pancreas, and adrenal glands have appropriate attenuation and enhancement. Stable mild promi nence of the pancreatic duct, measuring 0.3 cm in the coronal plane. Gallbladder is unremarkable. Decreased visceral fat limits evaluation for inflammatory change. No gastrohepatic, retrocrural, or periportal lymphadenopathy. No mesenteric mass, lymphadenopathy, free air, or free fluid. There is nonspecific stranding of the left lower quadrant abdominal mesentery. No associated lymphadenopathy. Umbilical hernia containing mesenteric fat. No evidence of bowel herniation. Symmetric enhancement of the kidneys. Bilaterally, no obstructive uropathy. Limited evaluation of the alimentary canal by the absence of oral contrast. Gastric mucosa, duodenum , and multiple decompressed small bowel loops are noted. Ileocecal junction is unremarkable. There is scattered fecal material in a nondistended, nondilated colon. Occasional diverticulum in the sigm oid colon. No diverticulitis. Normal caliber air filled appendix. PELVIC CT: No masses, lymphadenopathy, free air, or free fluid. The urinary bladder is unremarkable. There are not lytic or blastic lesions within the osseous structures. There is degenerative change w ith subchondral cyst formation in the left hip. Mild degenerative change of the right hip is noted, unchanged. IMPRESSION: 1. Nonspecific stranding of the left lower quadrant abdominal mesentery. Correlate for mesenteric e elisabeth. 2. Severe degenerative change in the left hip, similar to the previous examination. 3. Normal caliber air filled appendix. POS: [facility]
[2019-04-09] MEDS ORDERED: Ondansetron ODT 4 MG TAB PO PRN (08:22)
[2019-04-09] MEDS ORDERED: Senokot S 8.6-50 MG TAB PO PRN (08:22)
[2019-04-09] MEDS ORDERED: Acetaminophen 325 MG TAB PO PRN (08:22)
[2019-04-09] MEDS: Polyethylene Glycol 3350 17 GM Packet PO SCH (10:37)
[2019-04-09] MEDS: Famotidine 20 MG TAB PO SCH ×2 (10:38→21:42)
[2019-04-09] MEDS: Nicotine 21 MG PATCH TD SCH ×2 (10:41→14:13)
[2019-04-09 12:44] VITALS: BMI 23.6
[2019-04-09] MEDS ORDERED: Haloperidol Lactate 5 MG/ML VIAL SLOW IVP SCH (14:30)
[2019-04-09] MEDS ORDERED: Dicyclomine 10 MG CAP PO SCH (15:00)
[2019-04-09] MEDS ORDERED: Iopamidol-370 76% 500 ML 1 ML ONE (15:43)
[2019-04-09] MEDS: Simethicone Chewable 80 MG TAB PO PRN (16:53)
[2019-04-09] MEDS: Capsaicin 0.025% Cream 60 gm Tube TOP SCH ×2 (16:54→21:43)
[2019-04-09] MEDS ORDERED: Simethicone Chewable 80 MG TAB PO SCH (17:00)
[2019-04-09] MEDS: Dicyclomine 10 MG CAP PO SCH ×2 (19:05→21:42)
[2019-04-10] MEDS: Simethicone Chewable 80 MG TAB PO PRN (02:00)
[2019-04-10 07:53] VITALS: BP 113/71; TEMP 98.8
[2019-04-10] MEDS ORDERED: Potassium Chloride 20 MEQ TAB PO SCH (08:00)
[2019-04-10] MEDS: Famotidine 20 MG TAB PO SCH (09:21)
[2019-04-10] MEDS: Polyethylene Glycol 3350 17 GM Packet PO SCH (09:21)
[2019-04-10] MEDS: Dicyclomine 10 MG CAP PO SCH ×2 (09:21→12:26)
[2019-04-10] MEDS: Nicotine 21 MG PATCH TD SCH (09:22)
[2019-04-10] MEDS: Capsaicin 0.025% Cream 60 gm Tube TOP SCH (09:22)
--- NOTE | 2019-04-10 10:36 | PDOC.EVN ---
Event Note - Event Note Event Note: pt dc'd yesterday, unable to get ride. seen and evaluated today with no change from prior exam, stable for DC. fu in clinic outpt Addendum - Attending - Attending Attestation Date/Time: 04/10/19 2181 I personally evaluated the patient and discussed the management with Dr. Osullivan I agree with the History, Examination, Assessment and Plan documented above with any addition or exceptions noted below. Patient resting comfortably taking po well no complaints . CT did demonstrate small umbilical hernia which patient is aware of and exam nontender and reducible.
--- NOTE | 2019-04-11 08:02 | DIS ---
DATE OF ADMISSION: 04/09/2019 DATE OF DISCHARGE: 04/10/2019 ADMITTING ATTENDING: Dino Sheehan MD DISCHARGE ATTENDING: Dino Sheehan MD CONSULTS: None. IMAGING: Chest x-ray revealed no acute cardiopulmonary abnormalities. Abdomen and pelvis CT revealed an umbilical hernia that has been known to be there in the past. No incarceration findings. PROCEDURES: None. DISCHARGE MEDICATIONS: 1. Seroquel 50 mg p.o. at bedtime. 2. Bentyl 10 mg p.o. q.i.d. 3. Benztropine 0.5 mg p.o. at bedtime. 4. Carbamazepine 200 mg p.o. b.i.d. 5. Aripiprazole IM every 30 days. 6. Capsaicin topical t.i.d. 7. Dicyclomine 10 mg p.o. q.i.d. DISCHARGE DIAGNOSES: Intractable nausea, vomiting, and abdominal pain. SECONDARY DIAGNOSIS: Drug use. HISTORY OF PRESENT ILLNESS AND HOSPITAL COURSE: A 54-year-old male with past medical history significant for paranoid schizophrenia, multiple ER visits for abdominal pain, nausea, vomiting in the past, presented to the emergency department for evaluation of abdominal pain, pain for three days, dull in nature , moves all over. Hot baths and shower make it a lot better. He reports that he frequently comes to the hospital for this kind of abdominal pain and quetiapine and morphine frequently make the pain go away. Pain is also resolved by hot showers. He denies any new symptoms at this time. Does report a history of drug abuse. UDS confirms this with cannabis, tricyclics, and opiates detected in the system. The patient was admitted to the hospital for this pain and nausea and vomiting were controlled. The patient continued to have some abdominal pain that was throughout his abdomen with palpation. This is assumed to be psychogenic in nature. MR evaluated the patient and cleared him from my psych perspective. The patient was deemed stable for discharge home. ACTIVITY: As tolerated. FOLLOWUP: Follow up with PCP in the next 3 to 7 days. Job ID: [id number] [facility]
--- NOTE | 2019-04-14 17:33 | EKG ---
Test Reason : Blood Pressure : / mmHG Vent. Rate : 094 BPM Atrial Rate : 094 BPM P-R Int : 152 ms QRS Dur : 070 ms QT Int : 382 ms P-R-T Axes : 056 -03 029 degrees QTc Int : 477 ms Normal sinus rhythm Possible Left atrial enlargement Borderline ECG Confirmed by DUSTIN OLIVAREZ M.D. ([id number]), production editor SAVI DEE ([id number]) on 04/14/2019 5:33:38 PM Referred By: Confirmed By:DUSTIN OLIVAREZ M.D.
== END 2019-04-10 12:40 | disposition home or self-care (01) ==
LOC: ERS 01:28 → ERHOLD 04:50 → T4-A 07:55
PROVIDERS: ADMIT Family Medicine; ATTEND Family Medicine
DX: R11.2 Nausea with vomiting, unspecified (principal); R10.84 Generalized abdominal pain; F20.0 Paranoid schizophrenia; E87.6 Hypokalemia; F17.210 Nicotine dependence, cigarettes, uncomplicated; G89.29 Other chronic pain; M54.5 Low back pain; F11.10 Opioid abuse, uncomplicated; F12.10 Cannabis abuse, uncomplicated; K42.9 Umbilical hernia without obstruction or gangrene; K57.30 Diverticulosis of large intestine without perforation or abscess without bleeding; Z79.899 Other long term (current) drug therapy; Z88.8 Allergy status to other drugs, medicaments and biological substances
CPT/HCPCS: 36415; 71045; 74177; 80053; 80306; 81003; 81015; 83690; 84484; 85025; 93005; 96361; 96374; 96375; 96376; 99406; G0378; J2270; J2405; J2550; J7620; Q9967; S0028

== ENCOUNTER 2019-09-13 00:33 | Emergency (ER) | payer OTHER ==
[2019-09-13] MEDS ORDERED: Haloperidol Lactate 5 MG/ML VIAL ONE (01:26)
[2019-09-13 01:33] LABS: #Basophils 0.1 thou/uL (0.0-0.2); #Eosinphils 0.2 thou/uL (0.0-0.7); #Monocytes 0.8 thou/uL (0.11-0.59); #Neutrophils 4.3 thou/uL (1.40-6.50); %Basophils 0.9 % (0.0-1.0); %Eosinophils 2.2 % (0.0-10.0); %Lymphocytes 35.7 % (21.0-51.0); %Monocytes 9.8 % (0.0-10.0); %Neutrophils 51.3 % (42.0-75.0); Mean Corpuscular HGB CONC 33.3 g/dL (32.0-36.0); Mean Corpuscular Hemoglobin 31.4 pg (27.0-31.0); Mean Corpuscular Volume 94.5 fL (78.0-98.0); Mean Platelet Volume 7.9 fL (7.4-10.4); Platelet Count 308 thou/uL (130-400); Red Blood Cell (RBC) Count 4.76 mill/uL (4.70-6.10); White Blood Cell (WBC) Count 8.4 thou/uL (4.8-10.8)
[2019-09-13 01:54] LABS: ALT (SGPT) 18 U/L (8-55); AST (SGOT) 30 U/L (5-34); Albumin 4.7 g/dL (3.5-5.0); Alkaline Phosphatase 79 U/L (40-110); Anion Gap 17 mmol/L (10-20); BUN (Urea Nitrogen) 21 mg/dL (8.4-25.7); Bilirubin, Total 0.6 mg/dL (0.2-1.2); Calc. Creatinine Clearance 0 mL/min (70-130); Calcium 9.8 mg/dL (7.8-10.44); Carbon Dioxide 25 mmol/L (22-29); Chloride 97 mmol/L (98-107); Estimated GFR-MDRD 62; Glucose 110 mg/dL (70-105); Potassium 3.8 mmol/L (3.5-5.1); Protein, Total 8.7 g/dL (6.0-8.3); Sodium 135 mmol/L (136-145)
[2019-09-13] MEDS ORDERED: Ketorolac Tromethamine 30 MG/ML VIAL ONE (02:27)
--- NOTE | 2019-09-13 07:41 | RAD ---
XR Abdomen 2 View/1 View Cxr History: Abdominal pain Comparison: Reference is made to a CT exam March 2019 Findings: The interstitial prominence is chronic likely sequelae of low-grade scar. No pneumothorax. No effusion. No airspace consolidation. No dilated loops of large or small bowel. No definite free air under the hemidiaphragms. Severe left hip degenerative changes. Numerous phleboliths throughout the pelvis. Mild dextro scoliosis mid lumbar spine. Cam deformities of both femoral head/neck junctions. No abnormal calcifications are seen projecting over the renal shadows. Impression: No acute intrathoracic or intra-abdominal abnormality.
== END 2019-09-13 04:53 | disposition home or self-care (01) ==
LOC: ERS 00:33
DX: R10.32 Left lower quadrant pain (principal)
CPT/HCPCS: 74022; 80053; 83690; 85025; 96360; 96372; J1630; J1885

== ENCOUNTER 2019-09-14 14:19 | Emergency (ER) | payer OTHER ==
[2019-09-14] MEDS ORDERED: Ondansetron ODT 4 MG TAB ONE (15:20)
[2019-09-14] MEDS ORDERED: Acetaminophen 500 MG TAB ONE (15:20)
== END 2019-09-14 17:09 | disposition home or self-care (01) ==
LOC: ERS 14:19
DX: F20.9 Schizophrenia, unspecified (principal); R10.9 Unspecified abdominal pain; F17.210 Nicotine dependence, cigarettes, uncomplicated; I10 Essential (primary) hypertension; Z79.899 Other long term (current) drug therapy
CPT/HCPCS: 94760; Q0162

== ENCOUNTER 2019-09-19 21:34 | Emergency (ER) | payer OTHER ==
[~2019-09-19 21:34] MED LIST changes: -ISOVUE-370 76%-LOCM 1 ML ONE; +Iopamidol-370 76% 500 ML 1 ML ONE
[2019-09-19 22:06] LABS: #Basophils 0.1 thou/uL (0.0-0.2); #Eosinphils 0.1 thou/uL (0.0-0.7); #Lymphocytes 2.4 thou/uL (1.20-3.40); #Monocytes 0.6 thou/uL (0.11-0.59); #Neutrophils 4.3 thou/uL (1.40-6.50); %Basophils 1.1 % (0.0-1.0); %Eosinophils 1.7 % (0.0-10.0); %Lymphocytes 32.6 % (21.0-51.0); %Monocytes 7.3 % (0.0-10.0); %Neutrophils 57.2 % (42.0-75.0); Hemoglobin 14.3 g/dL (14.0-18.0); Mean Corpuscular HGB CONC 32.2 g/dL (32.0-36.0); Mean Corpuscular Hemoglobin 30.7 pg (27.0-31.0); Mean Corpuscular Volume 95.3 fL (78.0-98.0); Mean Platelet Volume 7.6 fL (7.4-10.4); Platelet Count 321 thou/uL (130-400); RBC Distribution Width 15.9 % (11.5-14.5); Red Blood Cell (RBC) Count 4.66 mill/uL (4.70-6.10); White Blood Cell (WBC) Count 7.5 thou/uL (4.8-10.8)
[2019-09-19 22:28] LABS: ALT (SGPT) 16 U/L (8-55); AST (SGOT) 28 U/L (5-34); Albumin 4.7 g/dL (3.5-5.0); Alkaline Phosphatase 65 U/L (40-110); Anion Gap 14 mmol/L (10-20); BUN (Urea Nitrogen) 12 mg/dL (8.4-25.7); Bilirubin, Total 0.6 mg/dL (0.2-1.2); Calc. Creatinine Clearance 0 mL/min (70-130); Calcium 9.7 mg/dL (7.8-10.44); Carbon Dioxide 33 mmol/L (22-29); Chloride 95 mmol/L (98-107); Estimated GFR-MDRD 69; Globulin 3.8 g/dL (2.4-3.5); Glucose 117 mg/dL (70-105); Lipase 14 U/L (8-78); Potassium 3.7 mmol/L (3.5-5.1); Protein, Total 8.5 g/dL (6.0-8.3); Sodium 138 mmol/L (136-145)
[2019-09-19] MEDS ORDERED: diphenhydrAMINE 50 MG/ML VIAL ONE (22:42)
[2019-09-19] MEDS ORDERED: Haloperidol Lactate 5 MG/ML VIAL ONE (22:42)
--- NOTE | 2019-09-19 23:00 | CT ---
CT ABDOMEN AND PELVIS WITH IV CONTRAST 09/19/2019 CLINICAL INFORMATION: Abdominal pain for 2 weeks. COMPARISON: 04/09/2019 Technique: Multiple contiguous axial CT images are obtained through the abdomen and pelvis with IV contrast. Cor onal reformatted images are provided. FINDINGS: Lower Chest: Lung bases are clear. Vessels: Minimal vascular calcifications abdominal aorta. Abdomen: Portal vein:Patent Gallbladder: Within normal limits for CT imaging. Liver: Innumerable very tiny subcentimeter hypodense lesions are scattered throughout the liver also seen on prior exam and were also seen on a study in 2017. Spleen: within normal limits. Pancreas: within normal limits. Adrenals: within normal limits. Kidneys: within normal limits. Bowel: Small to moderate amount retained fecal material seen throughout the colon. Loops of small bow el are normal in caliber. Appendix: The appendix is visualized and normal in caliber. Peritoneum: No ascites or free air; no fluid collection. Mesentery and Retroperitoneum: No enlarged mesenteric or retroperitoneal lymph nodes. Abdominal Wall: within normal limits. Pelvis: Reproductive Organs: No pelvic masses. Pelvis within normal limits. Bladder: Incompletely distended. Bones: Very severe left hip osteoarthritis is again seen. There is lucency seen within the superomedi al right femoral head also present on the prior exam and probably due to subchondral cystic changes. IMPRESSION: 1. No acute findings in the abdomen or pelvis. 2. Stable very severe osteoarthritis involving the left hip. 3. Stable innumerable subcentimeter hypodense lesions seen throughout each lobe of the liver unchange d when compared to multiple prior studies dating back to 2017 and are likely attributable to hepatic cysts. 4. Evidence of constipation.
== END 2019-09-20 00:27 | disposition home or self-care (01) ==
LOC: ERS 21:34
DX: R11.2 Nausea with vomiting, unspecified (principal); R10.9 Unspecified abdominal pain; R10.817 Generalized abdominal tenderness; F20.9 Schizophrenia, unspecified; F17.210 Nicotine dependence, cigarettes, uncomplicated; Z79.899 Other long term (current) drug therapy; I10 Essential (primary) hypertension
CPT/HCPCS: 36415; 74177; 80053; 83690; 85025; 96374; 96375; J1200; J1630; Q9967

== ENCOUNTER 2019-09-26 13:43 | Emergency (ER) | payer OTHER ==
[2019-09-26 14:38] LABS: #Basophils 0.1 thou/uL (0.0-0.2); #Eosinphils 0.1 thou/uL (0.0-0.7); #Lymphocytes 1.8 thou/uL (1.20-3.40); #Monocytes 0.5 thou/uL (0.11-0.59); #Neutrophils 3.2 thou/uL (1.40-6.50); %Basophils 1.3 % (0.0-1.0); %Eosinophils 2.5 % (0.0-10.0); %Lymphocytes 31.2 % (21.0-51.0); %Monocytes 8.9 % (0.0-10.0); %Neutrophils 56.1 % (42.0-75.0); Hemoglobin 11.6 g/dL (14.0-18.0); Mean Corpuscular HGB CONC 33.4 g/dL (32.0-36.0); Mean Corpuscular Hemoglobin 32.3 pg (27.0-31.0); Mean Corpuscular Volume 96.8 fL (78.0-98.0); Mean Platelet Volume 8.1 fL (7.4-10.4); Platelet Count 236 thou/uL (130-400); RBC Distribution Width 15.9 % (11.5-14.5); White Blood Cell (WBC) Count 5.7 thou/uL (4.8-10.8)
[2019-09-26] MEDS ORDERED: Haloperidol Lactate 5 MG/ML VIAL ONE (14:38)
[2019-09-26 18:07] LABS: Albumin 3.8 g/dL (3.5-5.0)
[2019-09-26 18:08] LABS: Chloride 99 mmol/L (98-107); Sodium 137 mmol/L (136-145)
[2019-09-26 18:09] LABS: Calcium 8.7 mg/dL (7.8-10.44)
[2019-09-26 18:10] LABS: Globulin 2.6 g/dL (2.4-3.5); Glucose 87 mg/dL (70-105); Protein, Total 6.4 g/dL (6.0-8.3)
[2019-09-26 18:11] LABS: Anion Gap 9 mmol/L (10-20); Bilirubin, Total 0.5 mg/dL (0.2-1.2); Carbon Dioxide 32 mmol/L (22-29)
[2019-09-26 18:12] LABS: Alkaline Phosphatase 46 U/L (40-110)
[2019-09-26 18:13] LABS: Calc. Creatinine Clearance 0 mL/min (70-130); Estimated GFR-MDRD 87
[2019-09-26 18:14] LABS: BUN (Urea Nitrogen) 7 mg/dL (8.4-25.7)
[2019-09-26 18:15] LABS: ALT (SGPT) 16 U/L (8-55); AST (SGOT) 25 U/L (5-34)
[2019-09-26 18:16] LABS: Lipase 40 U/L (8-78)
== END 2019-09-26 18:10 | disposition home or self-care (01) ==
LOC: ERS 13:43
DX: R10.9 Unspecified abdominal pain (principal); R10.817 Generalized abdominal tenderness; G89.29 Other chronic pain; D64.9 Anemia, unspecified; F17.210 Nicotine dependence, cigarettes, uncomplicated; F20.9 Schizophrenia, unspecified; Z79.899 Other long term (current) drug therapy
CPT/HCPCS: 36415; 80053; 82274; 83690; 85025; 96372; 99284; J1630

== ENCOUNTER 2019-10-01 18:08 | Emergency (ER) | payer OTHER ==
[2019-10-01] MEDS ORDERED: Ondansetron PF 4 MG/2 ML Vial ONE (18:29)
[2019-10-01] MEDS ORDERED: Ketorolac Tromethamine 30 MG/ML VIAL ONE (18:29)
--- NOTE | 2019-10-01 18:52 | RAD ---
PORTABLE CHEST 1 VIEW: Date: 10/01/2019 Time: 1828 hours HISTORY: Chest pain, abdominal pain, vomiting, diverticulitis. COMPARISON: 09/13/2019. FINDINGS: The heart size is normal. The aorta is tortuous. The lungs are well expanded without lobar consolidat ion, pneumothoraces, or pleural effusions. IMPRESSION: No acute process. POS: [facility]
[2019-10-01 19:03] LABS: #Basophils 0.1 thou/uL (0.0-0.2); #Eosinphils 0.1 thou/uL (0.0-0.7); #Monocytes 0.4 thou/uL (0.11-0.59); #Neutrophils 3.5 thou/uL (1.40-6.50); %Basophils 1.2 % (0.0-1.0); %Eosinophils 2.1 % (0.0-10.0); %Lymphocytes 32.9 % (21.0-51.0); %Monocytes 6.3 % (0.0-10.0); %Neutrophils 57.6 % (42.0-75.0); Hemoglobin 13.3 g/dL (14.0-18.0); Mean Corpuscular HGB CONC 32.1 g/dL (32.0-36.0); Mean Corpuscular Hemoglobin 31.2 pg (27.0-31.0); Mean Corpuscular Volume 97.2 fL (78.0-98.0); Mean Platelet Volume 7.1 fL (7.4-10.4); Platelet Count 349 thou/uL (130-400); RBC Distribution Width 16.3 % (11.5-14.5); Red Blood Cell (RBC) Count 4.26 mill/uL (4.70-6.10); White Blood Cell (WBC) Count 6.1 thou/uL (4.8-10.8)
[2019-10-01 19:22] LABS: Acetaminophen Less than 6.0 mcg/mL (10.0-30.0); Alcohol Less than 10 mg/dL (Less than 10); Salicylate Less than 8.0 mg/dL (15.0-30.0)
[2019-10-01 19:23] LABS: ALT (SGPT) 13 U/L (8-55); AST (SGOT) 20 U/L (5-34); Albumin 4.3 g/dL (3.5-5.0); Alkaline Phosphatase 57 U/L (40-110); Anion Gap 15 mmol/L (10-20); BUN (Urea Nitrogen) 11 mg/dL (8.4-25.7); Bilirubin, Total 0.4 mg/dL (0.2-1.2); Calc. Creatinine Clearance 0 mL/min (70-130); Calcium 9.4 mg/dL (7.8-10.44); Carbon Dioxide 27 mmol/L (22-29); Chloride 100 mmol/L (98-107); Estimated GFR-MDRD 83; Globulin 3.1 g/dL (2.4-3.5); Glucose 89 mg/dL (70-105); Lipase 15 U/L (8-78); Potassium 3.4 mmol/L (3.5-5.1); Protein, Total 7.4 g/dL (6.0-8.3); Sodium 139 mmol/L (136-145)
[2019-10-01] MEDS ORDERED: Haloperidol Lactate 5 MG/ML VIAL ONE (19:26)
--- NOTE | 2019-10-01 21:05 | CT ---
CT ABDOMEN AND PELVIS WITH ORAL AND IV CONTRAST: Date: 10/01/2019 HISTORY: Abdominal pain and vomiting. COMPARISON: 09/19/2019. FINDINGS: There are minimal dependent changes in the lung bases. Numerous tiny subcentimeter hypodense lesions scattered throughout the liver are again seen and are also noted in 2017. The spleen, pancreas, adren al glands, and kidneys appear normal. No calcified gallstones are seen. No free air, free fluid, or lymphadenopathy seen in the abdomen or pelvis. The small bowel loops are not abnormally dilated. A normal appearing appendix is present. There is fecal material in the colon. The aorta is of normal caliber. Degenerative changes in the hip joints, left greater than right, are again noted. IMPRESSION: Stable exam since 09/19/2019. Constipation. POS: [facility]
[2019-10-01 21:20] LABS: Bacteria/HPF None Seen HPF (None Seen); Bilirubin Negative (Negative); Blood, Urine Negative (Negative); Clarity Clear (Clear); Glucose, Urine (Dipstick) Normal (Negative); Ketone, Urine Negative (Negative); Leukocyte Negative Leu/uL (Negative); Nitrite Negative (Negative); Protein, Urine (Dipstick) 30 mg/dL (Neg-Trace); RBC/HPF 0-3 HPF (0-3); Squamous Epithelial 0-3 HPF (0-3); WBC/HPF 0-3 HPF (0-3)
[2019-10-01 21:22] LABS: Specific Gravity, Urine 1.056 (1.002-1.036)
[2019-10-01 21:30] LABS: Medtox Reader # READER 4; THC/Cannabinoid Screen Detected (NotDetected)
[2019-10-01 21:31] LABS: Amphetamine Not Detected (NotDetected); Barbiturates Screen Not Detected (NotDetected); Benzodiazepine Screen Not Detected (NotDetected); Cocaine Metabolite Screen Detected (NotDetected); Medtox Control Line Valid? VALID (VALID); Methadone Not Detected (NotDetected); Methamphetamine Not Detected (NotDetected); Opiate Screen Not Detected (NotDetected); Oxycodone Screen Not Detected (NotDetected); Phencyclidine (PCP) Detected (NotDetected); Tricyclic Screen Not Detected (NotDetected)
[2019-10-01 22:01] LABS: Lactic Acid 2.3 mmol/L (0.5-2.2)
== END 2019-10-01 22:25 | disposition home or self-care (01) ==
LOC: ERS 18:08
DX: R11.15 Cyclical vomiting syndrome unrelated to migraine (principal); F12.10 Cannabis abuse, uncomplicated; F17.200 Nicotine dependence, unspecified, uncomplicated; Z79.899 Other long term (current) drug therapy
CPT/HCPCS: 36415; 71045; 74177; 80053; 80306; 80307; 81003; 81015; 83605; 83690; 84484; 85025; 93005; 96361; 96372; 96374; 96375; J0500; J1630; J1885; J2405; Q9967

== ENCOUNTER 2019-10-03 12:07 | Emergency (ER) | payer OTHER ==
[2019-10-03] MEDS ORDERED: Haloperidol Lactate 5 MG/ML VIAL ONE (12:37)
== END 2019-10-03 15:34 | disposition home or self-care (01) ==
LOC: ERS 12:07
DX: R10.9 Unspecified abdominal pain (principal); F20.9 Schizophrenia, unspecified; F32.9 Major depressive disorder, single episode, unspecified; F17.210 Nicotine dependence, cigarettes, uncomplicated; Z79.899 Other long term (current) drug therapy
CPT/HCPCS: 96372; 99284; J1630

== ENCOUNTER 2020-01-19 15:05 | Inpatient (IN) | payer OTHER ==
[2020-01-19] MEDS ORDERED: Fentanyl 100 MCG/2 ML VIAL ONE ×2 (15:19→17:11)
--- NOTE | 2020-01-19 16:18 | RAD ---
Exam: Pelvis AP one view HISTORY: Injury COMPARISON: None FINDINGS: Severe narrowing of the left hip joint with extensive sclerosis and eburnation and subchondral cystic changes with some flattening of the femoral head and neck and some foreshortening. Evidence for displaced intertrochanteric fracture with displaced lesser trochanter. IMPRESSION: Displaced intertrochanteric fracture. Severe left hip joint osteoarthrosis.
--- NOTE | 2020-01-19 16:19 | RAD ---
Exam: Left hip 2 views: HISTORY: Injury from trauma COMPARISON: None FINDINGS: Displaced intertrochanteric comminuted fracture with some foreshortening. Extensive left hip joint osteoarthrosis with sclerosis and subchondral cystic changes and marked join t space loss. IMPRESSION: Comminuted intertrochanteric fracture. Severe left hip joint arthrosis.
--- NOTE | 2020-01-19 16:52 | RAD ---
EXAM: Chest one view: HISTORY: Injury, preoperative evaluation COMPARISON: 10/01/2019 FINDINGS: Stable increased linear and interstitial markings bilaterally. Heart size: Within normal limits. Lungs: Clear of acute process. No evidence for confluent lobar pneumonia, significant pleural effusion, acute edema, or pneumothorax , or other significant acute process. IMPRESSION: No significant acute intrathoracic disease.
[2020-01-19 17:05] LABS: #Basophils 0.1 thou/uL (0.0-0.2); #Eosinphils 0.4 thou/uL (0.0-0.7); #Lymphocytes 2.5 thou/uL (1.20-3.40); #Neutrophils 12.3 thou/uL (1.40-6.50); %Basophils 0.7 % (0.0-1.0); %Eosinophils 2.2 % (0.0-10.0); %Lymphocytes 15.3 % (21.0-51.0); %Monocytes 6.2 % (0.0-10.0); %Neutrophils 75.6 % (42.0-75.0); Hemoglobin 12.4 g/dL (14.0-18.0); Mean Corpuscular HGB CONC 33.9 g/dL (32.0-36.0); Mean Corpuscular Hemoglobin 33.5 pg (27.0-31.0); Mean Platelet Volume 7.3 fL (7.4-10.4); Platelet Count 263 thou/uL (130-400); RBC Distribution Width 15.6 % (11.5-14.5); Red Blood Cell (RBC) Count 3.71 mill/uL (4.70-6.10); White Blood Cell (WBC) Count 16.3 thou/uL (4.8-10.8)
[2020-01-19 17:11] LABS: PTT 25.7 sec (22.9-36.1)
[2020-01-19] MEDS ORDERED: Ketorolac Tromethamine 30 MG/ML VIAL ONE (17:11)
[2020-01-19 17:16] LABS: INR-International Normal Ratio 0.9; Prothrombin Time 12.7 sec (12.0-14.7)
[2020-01-19 17:17] LABS: ALT (SGPT) 9 U/L (8-55); AST (SGOT) 15 U/L (5-34); Albumin 3.9 g/dL (3.5-5.0); Alkaline Phosphatase 66 U/L (40-110); Anion Gap 15 mmol/L (10-20); BUN (Urea Nitrogen) 16 mg/dL (8.4-25.7); Bilirubin, Total 0.2 mg/dL (0.2-1.2); Calc. Creatinine Clearance 0 mL/min (70-130); Calcium 8.9 mg/dL (7.8-10.44); Carbon Dioxide 26 mmol/L (22-29); Chloride 104 mmol/L (98-107); Estimated GFR-MDRD 84; Globulin 3.1 g/dL (2.4-3.5); Glucose 125 mg/dL (70-105); Potassium 3.6 mmol/L (3.5-5.1); Sodium 141 mmol/L (136-145)
[2020-01-19] MEDS ORDERED: Dextrose 50% Abboject 50 ML SYRINGE SLOW IVP PRN (17:30)
[2020-01-19] MEDS ORDERED: Dextrose 5% in Water 1,000 ML IV PRN (17:30)
[2020-01-19] MEDS ORDERED: Morphine 2 MG/ML VIAL SLOW IVP PRN (17:30)
[2020-01-19] MEDS ORDERED: Morphine 4 MG/ML VIAL SLOW IVP PRN (17:30)
[2020-01-19] MEDS ORDERED: Ibuprofen 600 MG TAB PO PRN (17:34)
[2020-01-19] MEDS ORDERED: Ketorolac Tromethamine 30 MG/ML VIAL IVP SCH (17:45)
[2020-01-19 17:58] LABS: Phosphorus 2.7 mg/dL (2.3-4.7)
[2020-01-19] MEDS ORDERED: Albuterol 200 PUFF (6.7GM INHALER) INH PRN (18:16)
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
[2020-01-19] MEDS: traMADol HCl 50 MG TAB PO SCH (21:02)
[2020-01-19] MEDS: Oxazepam 10 MG CAP PO SCH (21:03)
[2020-01-19] MEDS: Famotidine 20 MG TAB PO SCH (21:03)
[2020-01-19] MEDS: Acetaminophen 500 MG TAB PO SCH (21:04)
[2020-01-19] MEDS: Sodium Chloride 0.9% 1,000 ML IV SCH (21:04)
[2020-01-19] MEDS: Ondansetron PF 4 MG/2 ML Vial IVP PRN (23:29)
[2020-01-19] MEDS ORDERED: Haloperidol Lactate 5 MG/ML VIAL IM SCH (23:30)
[2020-01-19] MEDS ORDERED: diphenhydrAMINE 50 MG/ML VIAL IM SCH (23:30)
[2020-01-19] MEDS ORDERED: Lorazepam 2 MG/ML VIAL IM SCH (23:30)
[2020-01-19] MEDS: Senokot S 8.6-50 MG TAB PO SCH (23:56)
[2020-01-20 00:02] VITALS: BMI 23.5
[2020-01-20] MEDS ORDERED: FLU VACC QS2020-21(6MOS UP)/PF 60 MCG/0.5 ML SYRINGE IM ONE (00:30)
[2020-01-20] MEDS: Acetaminophen 500 MG TAB PO SCH ×6 (00:43→23:47)
[2020-01-20] MEDS: traMADol HCl 50 MG TAB PO SCH ×4 (02:55→21:09)
[2020-01-20] MEDS: Ondansetron PF 4 MG/2 ML Vial IVP PRN ×2 (05:45→12:53)
[2020-01-20] MEDS: Oxazepam 10 MG CAP PO SCH ×3 (05:46→21:10)
[2020-01-20] MEDS: Sodium Chloride 0.9% 1,000 ML IV SCH ×3 (06:03→17:36)
[2020-01-20 06:13] LABS: Anion Gap 13 mmol/L (10-20); BUN (Urea Nitrogen) 10 mg/dL (8.4-25.7); Calc. Creatinine Clearance 99 mL/min (70-130); Calcium 8.2 mg/dL (7.8-10.44); Carbon Dioxide 23 mmol/L (22-29); Chloride 104 mmol/L (98-107); Estimated GFR-MDRD Greater than 90; Glucose 140 mg/dL (70-105); Magnesium 1.7 mg/dL (1.6-2.6); Phosphorus 2.1 mg/dL (2.3-4.7); Potassium 3.6 mmol/L (3.5-5.1); Sodium 136 mmol/L (136-145)
[2020-01-20 06:19] LABS: #Lymphocytes 1.2 thou/uL (1.20-3.40); #Monocytes 0.7 thou/uL (0.11-0.59); %Basophils 0.3 % (0.0-1.0); %Eosinophils 0.2 % (0.0-10.0); %Lymphocytes 9.9 % (21.0-51.0); %Monocytes 5.4 % (0.0-10.0); %Neutrophils 84.2 % (42.0-75.0); Hemoglobin 11.8 g/dL (14.0-18.0); Mean Corpuscular HGB CONC 33.5 g/dL (32.0-36.0); Mean Corpuscular Hemoglobin 32.9 pg (27.0-31.0); Mean Corpuscular Volume 98.3 fL (78.0-98.0); Platelet Count 215 thou/uL (130-400); RBC Distribution Width 15.7 % (11.5-14.5); White Blood Cell (WBC) Count 11.9 thou/uL (4.8-10.8)
[2020-01-20 07:07] LABS: SARS-CoV-2 MS2 Positive; SARS-CoV-2 N Gene Negative; SARS-CoV-2 S Gene Negative; SARS-CoV-2 by NAA Not Detected (NotDetected); SARS-CoV-2 orf1ab Negative
[2020-01-20] MEDS ORDERED: Fentanyl 250 MCG/5 ML VIAL ONE (07:07)
[2020-01-20] MEDS ORDERED: Neomycin-Polymyxin 1 ML AMP ONE (07:19)
[2020-01-20 07:47] LABS: Cocaine Metabolite Screen Detected (NotDetected); Medtox Reader # READER 4; Phencyclidine (PCP) Not Detected (NotDetected); THC/Cannabinoid Screen Detected (NotDetected)
[2020-01-20 07:48] LABS: Amphetamine Not Detected (NotDetected); Barbiturates Screen Not Detected (NotDetected); Benzodiazepine Screen Detected (NotDetected); Medtox Control Line Valid? VALID (VALID); Methadone Not Detected (NotDetected); Methamphetamine Not Detected (NotDetected); Opiate Screen Detected (NotDetected); Oxycodone Screen Not Detected (NotDetected); Tricyclic Screen Not Detected (NotDetected)
[2020-01-20] MEDS ORDERED: Lidocaine 1% w/Epinephrine 1:100K 20 ML VIAL ONE (08:45)
[2020-01-20] MEDS ORDERED: Bupivacaine PF 0.5% 30 ML VIAL ONE (08:45)
[2020-01-20] MEDS: Senokot S 8.6-50 MG TAB PO SCH ×2 (09:00→21:11)
[2020-01-20] MEDS: Famotidine 20 MG TAB PO SCH ×2 (09:00→21:10)
[2020-01-20] MEDS: Polyethylene Glycol 3350 17 GM Packet PO SCH (09:00)
[2020-01-20] MEDS ORDERED: Cepastat Lozenges 1 LOZ PO PRN (09:31)
[2020-01-20] MEDS ORDERED: Ondansetron PF 4 MG/2 ML Vial IVP PRN (09:31)
[2020-01-20] MEDS ORDERED: Fentanyl 100 MCG/2 ML VIAL SLOW IVP PRN (09:31)
[2020-01-20] MEDS ORDERED: Milk Of Magnesia 30 ML UDCUP PO PRN (09:31)
[2020-01-20] MEDS ORDERED: Bisacodyl 10 MG SUPP PR PRN (09:31)
[2020-01-20] MEDS ORDERED: Ondansetron ODT 4 MG TAB PO PRN (09:31)
[2020-01-20] MEDS ORDERED: CEFAZOLIN 2 GM in Premix Bag 1 BAG IVPB SCH (09:45)
--- NOTE | 2020-01-20 10:00 | OP ---
DATE OF PROCEDURE: 01/20/2020 PREOPERATIVE DIAGNOSIS: Intertrochanteric fracture of the left hip. POSTOPERATIVE DIAGNOSIS: Intertrochanteric fracture of the left hip. PROCEDURE PERFORMED: Open reduction and internal fixation of an intertrochanteric fracture of the left hip utilizing a trochanteric fixation nail. ANESTHESIA: General. DESCRIPTION OF PROCEDURE: The patient was given preoperative IV antibiotics, taken to the operating room, placed in a supine position. Satisfactory general anesthesia was performed. The patient was then placed on the fracture table. All bony prominences were well padded. Traction was applied to the left lower extremity, and C-arm verified good alignment of the intertrochanteric fracture in AP, lateral, and multiple oblique views. Lateral aspect of the left hip and thigh was sterilely prepped and draped in usual fashion. A 2.5 inch incision was made proximal to the greater trochanter, and under fluoroscopic visualization, a guide pin was placed through the greater trochanter into the canal. It was then over-reamed, and a [employer] trochanteric fixation nail that was 10 mm in diameter and 170 mm in length was inserted into the proximal aspect of the femur to the appropriate length using the guide still attached to the edis through a separate incision 2 inches in length in the lateral aspect of the thigh. A guide pin was placed up through the lateral aspect of the femur through the nail and into the femoral neck and head. The lateral cortex was over-reamed. Appropriate size helical blade was measured. It was measured to 110 mm. The helical blade was inserted into the femoral head and neck and then locked down to the nail. A 5.0 locking screw was then placed into the distal nail and the femoral shaft, which provided excellent fixation for the intertrochanteric fracture. Both wounds were then copiously irrigated with antibiotic solution. They were closed using #2 Vicryl, closed the iliotibial band; 0 Vicryl for the fat and subcutaneous level; and the skin was closed with skin cheryl. Total of 30 mL of 0.5% Marcaine was injected into the two wounds for postoperative analgesia. Sterile dressing was applied. The patient was taken off the fracture table. He was awakened, extubated, and transferred to recovery room in stable condition. ESTIMATED BLOOD LOSS: 200 mL. COMPLICATIONS: None. Job ID: [id number]
[2020-01-20] MEDS ORDERED: Fentanyl 100 MCG/2 ML VIAL ONE (10:02)
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
--- NOTE | 2020-01-20 10:20 | RAD ---
Left hip 2 views intraoperative fluoroscopy HISTORY: Hip fracture. FINDINGS: Intraoperative fluoroscopy was provided for internal fixation as performed by Dr. Christianson. Fluoroscopic images show compression nail and medullary edis transfixing the left hip fracture, in anatomic alignment. Fluoroscopy time 46.7 seconds.
[2020-01-20] MEDS: Benztropine 1 MG TAB PO SCH ×2 (11:10→21:07)
[2020-01-20] MEDS ORDERED: Lidocaine 1% PF 5 ML VIAL ONE (11:41)
[2020-01-20] MEDS ORDERED: PROPOFOL 200 MG/20 ML VIAL ONE (11:41)
[2020-01-20] MEDS ORDERED: Ondansetron PF 4 MG/2 ML Vial ONE (11:41)
[2020-01-20] MEDS ORDERED: Glycopyrrolate 0.2 MG/ML 5 ML SYRINGE ONE (11:41)
[2020-01-20] MEDS ORDERED: Rocuronium Bromide 10 MG/ML (10ML VIAL) ONE (11:41)
[2020-01-20] MEDS: Cyclobenzaprine 10 MG TAB PO PRN (12:46)
[2020-01-20] MEDS: CEFAZOLIN 2 GM in Premix Bag 1 BAG IVPB SCH ×2 (15:29→23:48)
--- NOTE | 2020-01-20 16:48 | RAD ---
KUB: 01/20/2020 COMPARISON: 02/06/2013 HISTORY: Nausea and vomiting FINDINGS: The bowel gas pattern appears nonobstructed. Supine imaging limits assessment for small bow el obstruction and free intraperitoneal air. There is a paucity of bowel gas overlying the pelvis. There is severe degenerative change involving the left hip. There is a incompletely imaged left proxi mal femur fracture status post ORIF. IMPRESSION: KUB as detailed above.
[2020-01-20] MEDS ORDERED: Senokot S 8.6-50 MG TAB PO SCH (21:00)
[2020-01-20] MEDS: Aspirin 325 MG TAB PO SCH (21:07)
[2020-01-20] MEDS: Ibuprofen 600 MG TAB PO SCH (21:08)
[2020-01-20] MEDS: Dicyclomine 20 MG TAB PO SCH (21:10)
[2020-01-20] MEDS: Ferrous Gluconate 324 MG TAB PO SCH (21:12)
[2020-01-20] MEDS: OLANZapine 5 MG TAB PO SCH (21:12)
[2020-01-20] MEDS ORDERED: Haloperidol Lactate 5 MG/ML VIAL IM SCH (21:30)
[2020-01-20] MEDS ORDERED: Haloperidol Lactate 5 MG/ML VIAL SLOW IVP SCH (21:30)
[2020-01-20] MEDS ORDERED: Haloperidol Lactate 5 MG/ML VIAL ONE (21:38)
[2020-01-21] MEDS ORDERED: hydrALAZINE 20 MG/ML VIAL SLOW IVP PRN (00:15)
[2020-01-21] MEDS: traMADol HCl 50 MG TAB PO SCH ×4 (02:31→20:14)
[2020-01-21] MEDS: Cyclobenzaprine 10 MG TAB PO PRN ×2 (02:31→10:40)
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
[2020-01-21] MEDS: Ibuprofen 600 MG TAB PO SCH ×3 (05:06→20:14)
[2020-01-21] MEDS: Acetaminophen 500 MG TAB PO SCH ×4 (05:07→23:43)
[2020-01-21 05:29] LABS: Hemoglobin 9.9 g/dL (14.0-18.0); Mean Corpuscular HGB CONC 33.1 g/dL (32.0-36.0); Mean Corpuscular Hemoglobin 32.2 pg (27.0-31.0); Mean Corpuscular Volume 97.3 fL (78.0-98.0); Mean Platelet Volume 7.5 fL (7.4-10.4); Platelet Count 204 thou/uL (130-400); RBC Distribution Width 15.6 % (11.5-14.5); Red Blood Cell (RBC) Count 3.06 mill/uL (4.70-6.10); White Blood Cell (WBC) Count 12.5 thou/uL (4.8-10.8)
[2020-01-21 05:54] LABS: Anion Gap 13 mmol/L (10-20); BUN (Urea Nitrogen) 7 mg/dL (8.4-25.7); Calc. Creatinine Clearance 100 mL/min (70-130); Calcium 7.9 mg/dL (7.8-10.44); Carbon Dioxide 24 mmol/L (22-29); Chloride 101 mmol/L (98-107); Estimated GFR-MDRD Greater than 90; Glucose 124 mg/dL (70-105); Magnesium 1.7 mg/dL (1.6-2.6); Potassium 3.2 mmol/L (3.5-5.1); Sodium 135 mmol/L (136-145)
[2020-01-21 05:58] LABS: Phosphorus 1.7 mg/dL (2.3-4.7)
[2020-01-21] MEDS ORDERED: Magnesium 2 GM/50 ML 2 GM in Premix Bag 1 BAG IVPB SCH (06:15)
[2020-01-21] MEDS ORDERED: Potassium Phosphate 30 MMOL in Sodium Chloride 0.9% 250 ML 250 ML IVPB SCH (06:15)
[2020-01-21] MEDS: Oxazepam 10 MG CAP PO SCH ×3 (06:43→23:43)
[2020-01-21] MEDS ORDERED: Promethazine HCl 25 MG/ML VIAL IM/IV PRN (07:09)
[2020-01-21] MEDS: traMADol HCl 50 MG TAB PO PRN ×2 (08:40→14:07)
[2020-01-21] MEDS: Multivitamin W/ Minerals 1 TAB PO SCH (08:41)
[2020-01-21] MEDS: Dicyclomine 20 MG TAB PO SCH ×4 (08:41→20:15)
[2020-01-21] MEDS: Famotidine 20 MG TAB PO SCH ×2 (08:41→20:15)
[2020-01-21] MEDS: Ferrous Gluconate 324 MG TAB PO SCH ×2 (08:41→20:15)
[2020-01-21] MEDS: Polyethylene Glycol 3350 17 GM Packet PO SCH (08:42)
[2020-01-21] MEDS: Senokot S 8.6-50 MG TAB PO SCH ×2 (08:42→20:15)
[2020-01-21] MEDS: Aspirin 325 MG TAB PO SCH ×2 (08:42→20:16)
[2020-01-21] MEDS: Benztropine 1 MG TAB PO SCH ×2 (10:38→20:21)
[2020-01-21] MEDS ORDERED: Promethazine HCl 25 MG, Admixture Fee 1 EACH in Sodium Chloride 0.9% 50 ML IVPB PRN (13:44)
[2020-01-21] MEDS ORDERED: Promethazine HCl 25 MG/ML VIAL IM PRN (14:00)
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
--- NOTE | 2020-01-21 18:28 | PRG ---
DATE OF SERVICE: 01/21/2020 SUBJECTIVE: The patient is one day status post ORIF of an intertrochanteric fracture of the left hip using a trochanteric fixation nail. The patient earlier today had an episode, where he was hitting himself and becoming violent and he was given 5 mg of Haldol, which helped calm him. The patient's sister Cristina has been sitting at his bedside and tells me that he seems to be in quite a bit of pain. By the time that the patient's sister tell me how much pain he is in and the patient was actually sleeping, so it is very difficult to gauge how much pain he is in since he has been asleep. OBJECTIVE: VITAL SIGNS: The patient has been afebrile. Blood pressure 128/98, respiratory rate 18, pulse 94, O2 saturation 95% on room air. LABORATORY DATA: This morning shows white count 12.5, hemoglobin 9.9, hematocrit 29.8. I explained to the sister that usually when the patient is asleep, it means that they are not in severe pain and they are able to rest and he does appear fairly comfortable while he was sleeping. Certainly, the nurses will try to keep a close eye on that and we will medicate as needed. Meantime, we will ask Physical Therapy to help work with the patient to get him out of bed. He can weightbear as tolerated on the left lower extremity. Job ID: [id number]
[2020-01-21] MEDS: OLANZapine 5 MG TAB PO SCH (20:15)
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
[2020-01-22] MEDS: traMADol HCl 50 MG TAB PO SCH ×4 (03:28→19:54)
[2020-01-22] MEDS: Oxazepam 10 MG CAP PO SCH ×3 (05:05→23:34)
[2020-01-22] MEDS: Acetaminophen 500 MG TAB PO SCH ×3 (05:05→17:25)
[2020-01-22] MEDS: Ibuprofen 600 MG TAB PO SCH ×3 (05:05→19:54)
[2020-01-22 06:56] LABS: Anion Gap 11 mmol/L (10-20); BUN (Urea Nitrogen) 13 mg/dL (8.4-25.7); Calc. Creatinine Clearance 70 mL/min (70-130); Calcium 7.7 mg/dL (7.8-10.44); Carbon Dioxide 26 mmol/L (22-29); Chloride 103 mmol/L (98-107); Estimated GFR-MDRD 81; Glucose 92 mg/dL (70-105); Magnesium 2.5 mg/dL (1.6-2.6); Phosphorus 2.4 mg/dL (2.3-4.7); Potassium 3.3 mmol/L (3.5-5.1); Sodium 137 mmol/L (136-145)
[2020-01-22] MEDS: Polyethylene Glycol 3350 17 GM Packet PO SCH (08:46)
[2020-01-22] MEDS: Ferrous Gluconate 324 MG TAB PO SCH ×2 (08:47→19:54)
[2020-01-22] MEDS: Thiamine 100 MG TAB PO SCH (08:47)
[2020-01-22] MEDS: Aspirin 325 MG TAB PO SCH ×2 (08:47→19:55)
[2020-01-22] MEDS: Senokot S 8.6-50 MG TAB PO SCH ×2 (08:47→19:55)
[2020-01-22] MEDS: Famotidine 20 MG TAB PO SCH ×2 (08:47→19:53)
[2020-01-22] MEDS: Benztropine 1 MG TAB PO SCH ×2 (08:47→19:55)
[2020-01-22] MEDS: Dicyclomine 20 MG TAB PO SCH ×4 (08:48→19:53)
[2020-01-22] MEDS: Multivitamin W/ Minerals 1 TAB PO SCH (08:48)
[2020-01-22] MEDS: Folic Acid 1 MG TAB PO SCH (08:48)
[2020-01-22] MEDS ORDERED: Potassium Phosphate 30 MMOL in Sodium Chloride 0.9% 250 ML 250 ML IVPB SCH (09:00)
[2020-01-22 09:06] LABS: Hemoglobin 8.2 g/dL (14.0-18.0); Lymphocytes 27 % (21-51); MDiff Complete? YES; Macrocytosis SLIGHT = 6-15 cells (100X) (0-5/hpf); Mean Corpuscular HGB CONC 32.7 g/dL (32.0-36.0); Mean Corpuscular Hemoglobin 32.4 pg (27.0-31.0); Mean Corpuscular Volume 99.3 fL (78.0-98.0); Mean Platelet Volume 7.2 fL (7.4-10.4); Monocytes 14 % (0-10); Neutrophil 59 % (42-75); Platelet Count 214 thou/uL (130-400); Platelet Morphology Comment Appears Adequate; RBC Distribution Width 15.8 % (11.5-14.5); Red Blood Cell (RBC) Count 2.52 mill/uL (4.70-6.10); White Blood Cell (WBC) Count 9.9 thou/uL (4.8-10.8)
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
[2020-01-22] MEDS: OLANZapine 5 MG TAB PO SCH (19:54)
[2020-01-23] MEDS: Acetaminophen 500 MG TAB PO SCH ×3 (00:39→12:26)
[2020-01-23] MEDS: traMADol HCl 50 MG TAB PO SCH ×2 (00:39→08:54)
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
[2020-01-23] MEDS: traMADol HCl 50 MG TAB PO PRN (01:06)
[2020-01-23] MEDS: Cyclobenzaprine 10 MG TAB PO PRN (01:06)
[2020-01-23] MEDS: Oxazepam 10 MG CAP PO SCH (05:04)
[2020-01-23] MEDS: Ibuprofen 600 MG TAB PO SCH ×2 (05:05→12:25)
[2020-01-23 07:00] LABS: Hemoglobin 8.9 g/dL (14.0-18.0); Mean Corpuscular HGB CONC 33.2 g/dL (32.0-36.0); Mean Corpuscular Hemoglobin 33.7 pg (27.0-31.0); Mean Platelet Volume 7.3 fL (7.4-10.4); Platelet Count 266 thou/uL (130-400); RBC Distribution Width 15.8 % (11.5-14.5); Red Blood Cell (RBC) Count 2.64 mill/uL (4.70-6.10); White Blood Cell (WBC) Count 10.9 thou/uL (4.8-10.8)
[2020-01-23] MEDS: Thiamine 100 MG TAB PO SCH (08:54)
[2020-01-23] MEDS: Dicyclomine 20 MG TAB PO SCH ×2 (08:54→12:27)
[2020-01-23] MEDS: Multivitamin W/ Minerals 1 TAB PO SCH (08:54)
[2020-01-23] MEDS: Folic Acid 1 MG TAB PO SCH (08:54)
[2020-01-23] MEDS: Polyethylene Glycol 3350 17 GM Packet PO SCH (08:54)
[2020-01-23] MEDS: Aspirin 325 MG TAB PO SCH (08:54)
[2020-01-23] MEDS: Famotidine 20 MG TAB PO SCH (08:55)
[2020-01-23] MEDS: Benztropine 1 MG TAB PO SCH (08:55)
[2020-01-23] MEDS: Ferrous Gluconate 324 MG TAB PO SCH (08:55)
[2020-01-23 11:33] VITALS: BP 147/96; TEMP 97.6
[2020-01-23] MEDS: Senokot S 8.6-50 MG TAB PO SCH (12:27)
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
== END 2020-01-23 14:40 | disposition home or self-care (01) | DRG 481 ==
LOC: ERS 15:05 → SURG B 17:02
PROVIDERS: ADMIT Surgery; ATTEND Surgery
PROC: 0QH734Z Insertion of Internal Fixation Device into Left Upper Femur, Percutaneous Approach (ICD-10-PCS; principal; 2020-01-20)
DX: S72.142A Displaced intertrochanteric fracture of left femur, initial encounter for closed fracture (principal); K57.92 Diverticulitis of intestine, part unspecified, without perforation or abscess without bleeding; F20.0 Paranoid schizophrenia; F14.10 Cocaine abuse, uncomplicated; F12.10 Cannabis abuse, uncomplicated; Z20.828 Contact with and (suspected) exposure to other viral communicable diseases; F32.9 Major depressive disorder, single episode, unspecified; G89.29 Other chronic pain; M54.5 Low back pain; F17.210 Nicotine dependence, cigarettes, uncomplicated; J45.909 Unspecified asthma, uncomplicated; M16.12 Unilateral primary osteoarthritis, left hip; Z28.21 Immunization not carried out because of patient refusal; V23.4XXA Motorcycle driver injured in collision with car, pick-up truck or van in traffic accident, initial encounter; Z88.8 Allergy status to other drugs, medicaments and biological substances; Z79.899 Other long term (current) drug therapy
CPT/HCPCS: 36415; 71045; 72170; 74018; 76000; 80048; 80053; 80306; 80307; 83735; 84100; 85025; 85027; 85610; 85730; 86850; 86900; 86901; 87635; 93005; 93010; 96374; 96375; 96376; C1713; G0390; J0360; J0690; J1200; J1630; J1885; J2060; J2270; J2405; J2550; J2704; J3010; J3475; J7050; S0020; U0003

== ENCOUNTER 2020-03-03 14:31 | Emergency (ER) | payer OTHER ==
[2020-03-03 16:07] LABS: #Basophils 0.1 thou/uL (0.0-0.2); #Lymphocytes 1.5 thou/uL (1.20-3.40); #Monocytes 0.5 thou/uL (0.11-0.59); #Neutrophils 6.4 thou/uL (1.40-6.50); %Basophils 0.8 % (0.0-1.0); %Eosinophils 0.2 % (0.0-10.0); %Lymphocytes 18.3 % (21.0-51.0); %Monocytes 5.3 % (0.0-10.0); %Neutrophils 75.4 % (42.0-75.0); Hemoglobin 12.8 g/dL (14.0-18.0); Mean Corpuscular HGB CONC 31.5 g/dL (32.0-36.0); Mean Corpuscular Hemoglobin 29.7 pg (27.0-31.0); Mean Corpuscular Volume 94.2 fL (78.0-98.0); Mean Platelet Volume 6.5 fL (7.4-10.4); Platelet Count 461 thou/uL (130-400); RBC Distribution Width 15.9 % (11.5-14.5); Red Blood Cell (RBC) Count 4.31 mill/uL (4.70-6.10); White Blood Cell (WBC) Count 8.4 thou/uL (4.8-10.8)
[2020-03-03 16:32] LABS: ALT (SGPT) 10 U/L (8-55); AST (SGOT) 17 U/L (5-34); Albumin 4.6 g/dL (3.5-5.0); Alkaline Phosphatase 105 U/L (40-110); Anion Gap 18 mmol/L (10-20); BUN (Urea Nitrogen) 13 mg/dL (8.4-25.7); Bilirubin, Total 0.3 mg/dL (0.2-1.2); Calc. Creatinine Clearance 0 mL/min (70-130); Calcium 9.5 mg/dL (7.8-10.44); Carbon Dioxide 24 mmol/L (22-29); Chloride 103 mmol/L (98-107); Glucose 123 mg/dL (70-105); Lipase 7 U/L (8-78); Potassium 3.3 mmol/L (3.5-5.1); Protein, Total 8.6 g/dL (6.0-8.3); Sodium 142 mmol/L (136-145)
== END 2020-03-03 19:12 | disposition left against medical advice (07) ==
LOC: ERS 14:31
DX: Z53.21 Procedure and treatment not carried out due to patient leaving prior to being seen by health care provider (principal)
CPT/HCPCS: 36415; 80053; 83690; 85025

== ENCOUNTER 2020-03-03 21:52 | Emergency (ER) | payer OTHER ==
[2020-03-03] MEDS ORDERED: diphenhydrAMINE 50 MG/ML VIAL ONE (22:05)
[2020-03-03] MEDS ORDERED: Haloperidol Lactate 5 MG/ML VIAL ONE (22:05)
== END 2020-03-03 23:36 | disposition home or self-care (01) ==
LOC: ERS 21:52
DX: Z76.5 Malingerer [conscious simulation] (principal); R10.9 Unspecified abdominal pain; F17.200 Nicotine dependence, unspecified, uncomplicated
CPT/HCPCS: 36415; 80053; 83690; 85025; 96372; 99281; J1200; J1630

== ENCOUNTER 2020-03-05 06:31 | Emergency (ER) | payer OTHER ==
[2020-03-05] MEDS ORDERED: Sucralfate 1 GM/10 ML UDCUP ONE (06:56)
[2020-03-05 07:21] LABS: #Basophils 0.1 thou/uL (0.0-0.2); #Monocytes 0.7 thou/uL (0.11-0.59); #Neutrophils 7.4 thou/uL (1.40-6.50); %Eosinophils 0.2 % (0.0-10.0); %Monocytes 7.1 % (0.0-10.0); %Neutrophils 71.7 % (42.0-75.0); Hemoglobin 13.1 g/dL (14.0-18.0); Mean Corpuscular HGB CONC 31.6 g/dL (32.0-36.0); Mean Corpuscular Hemoglobin 29.5 pg (27.0-31.0); Mean Corpuscular Volume 93.4 fL (78.0-98.0); Mean Platelet Volume 7.2 fL (7.4-10.4); Platelet Count 414 thou/uL (130-400); RBC Distribution Width 15.9 % (11.5-14.5); Red Blood Cell (RBC) Count 4.43 mill/uL (4.70-6.10); White Blood Cell (WBC) Count 10.2 thou/uL (4.8-10.8)
[2020-03-05 08:32] LABS: ALT (SGPT) 14 U/L (8-55); AST (SGOT) 30 U/L (5-34); Albumin 4.4 g/dL (3.5-5.0); Alkaline Phosphatase 102 U/L (40-110); Anion Gap 16 mmol/L (10-20); BUN (Urea Nitrogen) 15 mg/dL (8.4-25.7); Bilirubin, Total 0.4 mg/dL (0.2-1.2); Calc. Creatinine Clearance 0 mL/min (70-130); Calcium 9.1 mg/dL (7.8-10.44); Carbon Dioxide 27 mmol/L (22-29); Chloride 95 mmol/L (98-107); Globulin 3.8 g/dL (2.4-3.5); Glucose 113 mg/dL (70-105); Lipase 13 U/L (8-78); Protein, Total 8.2 g/dL (6.0-8.3); Sodium 135 mmol/L (136-145)
[2020-03-05] MEDS ORDERED: Potassium Chloride 20 MEQ TAB ONE (09:06)
== END 2020-03-05 09:22 | disposition home or self-care (01) ==
LOC: ERS 06:31
DX: R10.84 Generalized abdominal pain (principal); E87.6 Hypokalemia; F17.200 Nicotine dependence, unspecified, uncomplicated
CPT/HCPCS: 36415; 80053; 83690; 85025; 99284

== ENCOUNTER 2020-05-02 02:25 | Emergency (ER) | payer OTHER ==
[2020-05-02] MEDS ORDERED: Sucralfate 1 GM/10 ML UDCUP ONE ×2 (02:33→02:46)
[2020-05-02 03:25] LABS: #Basophils 0.1 thou/uL (0.0-0.2); #Eosinphils 0.6 thou/uL (0.0-0.7); #Lymphocytes 4.1 thou/uL (1.20-3.40); #Monocytes 1.1 thou/uL (0.11-0.59); #Neutrophils 3.6 thou/uL (1.40-6.50); %Basophils 1.2 % (0.0-1.0); %Eosinophils 6.1 % (0.0-10.0); %Lymphocytes 43.1 % (21.0-51.0); %Monocytes 11.8 % (0.0-10.0); %Neutrophils 37.8 % (42.0-75.0); Hemoglobin 14.3 g/dL (14.0-18.0); Mean Corpuscular HGB CONC 33.2 g/dL (32.0-36.0); Mean Corpuscular Volume 93.5 fL (78.0-98.0); Mean Platelet Volume 7.7 fL (7.4-10.4); Platelet Count 318 thou/uL (130-400); RBC Distribution Width 16.6 % (11.5-14.5); White Blood Cell (WBC) Count 9.5 thou/uL (4.8-10.8)
[2020-05-02] MEDS ORDERED: Haloperidol Lactate 5 MG/ML VIAL ONE (03:27)
[2020-05-02 03:33] LABS: ALT (SGPT) 12 U/L (8-55); AST (SGOT) 25 U/L (5-34); Albumin 4.7 g/dL (3.5-5.0); Alkaline Phosphatase 84 U/L (40-110); Anion Gap 18 mmol/L (10-20); BUN (Urea Nitrogen) 11 mg/dL (8.4-25.7); Bilirubin, Total 0.3 mg/dL (0.2-1.2); Calc. Creatinine Clearance 0 mL/min (70-130); Calcium 9.6 mg/dL (7.8-10.44); Carbon Dioxide 26 mmol/L (22-29); Chloride 98 mmol/L (98-107); Globulin 3.6 g/dL (2.4-3.5); Glucose 120 mg/dL (70-105); Lipase 20 U/L (8-78); Potassium 3.6 mmol/L (3.5-5.1); Protein, Total 8.3 g/dL (6.0-8.3); Sodium 138 mmol/L (136-145)
== END 2020-05-02 03:54 | disposition home or self-care (01) ==
LOC: ERS 02:25
DX: R10.9 Unspecified abdominal pain (principal); F19.10 Other psychoactive substance abuse, uncomplicated; F15.10 Other stimulant abuse, uncomplicated; F17.200 Nicotine dependence, unspecified, uncomplicated
CPT/HCPCS: 36415; 80053; 83690; 85025; 96372; 99284; J1630

== ENCOUNTER 2020-05-04 10:05 | Emergency (ER) | payer OTHER ==
[2020-05-04] MEDS ORDERED: diphenhydrAMINE 50 MG/ML VIAL ONE (10:36)
[2020-05-04] MEDS ORDERED: Haloperidol Lactate 5 MG/ML VIAL ONE (10:36)
[2020-05-04 10:46] LABS: #Basophils 0.1 thou/uL (0.0-0.2); #Eosinphils 0.5 thou/uL (0.0-0.7); #Lymphocytes 1.7 thou/uL (1.20-3.40); #Monocytes 0.4 thou/uL (0.11-0.59); #Neutrophils 3.8 thou/uL (1.40-6.50); %Basophils 1.3 % (0.0-1.0); %Eosinophils 7.7 % (0.0-10.0); %Lymphocytes 26.5 % (21.0-51.0); %Monocytes 5.7 % (0.0-10.0); %Neutrophils 58.9 % (42.0-75.0); Hemoglobin 13.1 g/dL (14.0-18.0); Mean Corpuscular HGB CONC 33.1 g/dL (32.0-36.0); Mean Corpuscular Hemoglobin 31.4 pg (27.0-31.0); Mean Corpuscular Volume 94.9 fL (78.0-98.0); Mean Platelet Volume 7.4 fL (7.4-10.4); Platelet Count 299 thou/uL (130-400); RBC Distribution Width 16.6 % (11.5-14.5); Red Blood Cell (RBC) Count 4.18 mill/uL (4.70-6.10); White Blood Cell (WBC) Count 6.4 thou/uL (4.8-10.8)
[2020-05-04 11:07] LABS: ALT (SGPT) 13 U/L (8-55); AST (SGOT) 23 U/L (5-34); Albumin 4.3 g/dL (3.5-5.0); Alkaline Phosphatase 74 U/L (40-110); Anion Gap 13 mmol/L (10-20); BUN (Urea Nitrogen) 6 mg/dL (8.4-25.7); Bilirubin, Total 0.4 mg/dL (0.2-1.2); CK (CPK) 333 U/L (30-200); Calc. Creatinine Clearance 0 mL/min (70-130); Carbon Dioxide 25 mmol/L (22-29); Chloride 103 mmol/L (98-107); Glucose 111 mg/dL (70-105); Lipase 10 U/L (8-78); Potassium 3.7 mmol/L (3.5-5.1); Protein, Total 7.3 g/dL (6.0-8.3); Sodium 137 mmol/L (136-145)
[2020-05-04] MEDS ORDERED: Iopamidol-370 76% 500 ML 1 ML ONE (12:12)
[2020-05-04] MEDS ORDERED: Promethazine HCl 25 MG/ML VIAL ONE (12:15)
[2020-05-04 12:35] LABS: Bilirubin Negative (Negative); Blood, Urine Negative (Negative); Clarity Clear (Clear); Glucose, Urine (Dipstick) Normal (Negative); Ketone, Urine Negative (Negative); Leukocyte Negative Leu/uL (Negative); Nitrite Negative (Negative); Protein, Urine (Dipstick) 10 mg/dL (Neg-Trace); Specific Gravity, Urine 1.032 (1.002-1.036); Urobilinogen Normal mg/dL (Less than 2)
[2020-05-04] MEDS ORDERED: Lorazepam 2 MG/ML VIAL ONE (13:34)
[2020-05-04] MEDS ORDERED: Sucralfate 1 GM/10 ML UDCUP ONE (13:34)
== END 2020-05-04 17:23 | disposition home or self-care (01) ==
LOC: ERS 10:05
DX: R10.32 Left lower quadrant pain (principal); I10 Essential (primary) hypertension; K02.9 Dental caries, unspecified; K03.81 Cracked tooth; F19.10 Other psychoactive substance abuse, uncomplicated; F17.290 Nicotine dependence, other tobacco product, uncomplicated; Z79.899 Other long term (current) drug therapy
CPT/HCPCS: 36415; 74177; 80053; 81003; 82550; 83690; 85025; 93005; 96372; 96374; 96375; 96376; J0500; J1200; J1630; J2060; J2550; Q9967

== ENCOUNTER 2020-07-05 10:02 | Observation (INO) | payer OTHER ==
[2020-07-05] MEDS ORDERED: Ondansetron PF 4 MG/2 ML Vial ONE ×2 (10:21→13:55)
[2020-07-05 11:52] LABS: ALT (SGPT) 15 U/L (8-55); AST (SGOT) 26 U/L (5-34); Albumin 4.5 g/dL (3.5-5.0); Alkaline Phosphatase 65 U/L (40-110); Anion Gap 17 mmol/L (10-20); BUN (Urea Nitrogen) 36 mg/dL (8.4-25.7); Bilirubin, Total 0.7 mg/dL (0.2-1.2); CK (CPK) 377 U/L (30-200); Calc. Creatinine Clearance 0 mL/min (70-130); Calcium 9.4 mg/dL (7.8-10.44); Carbon Dioxide 27 mmol/L (22-29); Chloride 95 mmol/L (98-107); Globulin 3.4 g/dL (2.4-3.5); Glucose 105 mg/dL (70-105); Potassium 3.4 mmol/L (3.5-5.1); Protein, Total 7.9 g/dL (6.0-8.3); Sodium 136 mmol/L (136-145)
[2020-07-05 12:05] LABS: #Basophils 0.1 thou/uL (0.0-0.2); #Eosinphils 0.1 thou/uL (0.0-0.7); #Monocytes 0.8 thou/uL (0.11-0.59); #Neutrophils 7.2 thou/uL (1.40-6.50); %Basophils 0.9 % (0.0-1.0); %Eosinophils 0.5 % (0.0-10.0); %Lymphocytes 26.6 % (21.0-51.0); %Monocytes 7.5 % (0.0-10.0); %Neutrophils 64.6 % (42.0-75.0); Hemoglobin 15.8 g/dL (14.0-18.0); Mean Corpuscular Hemoglobin 32.9 pg (27.0-31.0); Mean Corpuscular Volume 99.6 fL (78.0-98.0); Mean Platelet Volume 7.9 fL (7.4-10.4); Platelet Count 396 thou/uL (130-400); RBC Distribution Width 13.2 % (11.5-14.5); Red Blood Cell (RBC) Count 4.82 mill/uL (4.70-6.10); White Blood Cell (WBC) Count 11.1 thou/uL (4.8-10.8)
[2020-07-05] MEDS ORDERED: Morphine 4 MG/ML VIAL ONE (12:15)
[2020-07-05] MEDS ORDERED: Acetaminophen 325 MG TAB ONE ×2 (13:55→14:17)
[2020-07-05] MEDS ORDERED: Bisacodyl 5 MG TAB PO PRN (14:04)
[2020-07-05] MEDS ORDERED: Senokot S 8.6-50 MG TAB PO PRN (14:04)
[2020-07-05] MEDS ORDERED: Acetaminophen 325 MG TAB PO PRN (14:04)
[2020-07-05] MEDS ORDERED: HYDROcodone/Acetaminophen 5/325 mg Tablet PO PRN (14:04)
[2020-07-05 14:12] LABS: Bacteria/HPF None Seen HPF (None Seen); Bilirubin Negative (Negative); Blood, Urine Negative (Negative); Clarity Turbid (Clear); Glucose, Urine (Dipstick) Normal (Negative); Ketone, Urine 20 mg/dL (Negative); Leukocyte Negative Leu/uL (Negative); Nitrite Negative (Negative); Protein, Urine (Dipstick) 30 mg/dL (Neg-Trace); RBC/HPF 0-3 HPF (0-3); Specific Gravity, Urine 1.027 (1.002-1.036); Squamous Epithelial 0-3 HPF (0-3); Urobilinogen Normal mg/dL (Less than 2); WBC/HPF 0-3 HPF (0-3)
[2020-07-05] MEDS: Ondansetron PF 4 MG/2 ML Vial IVP PRN (14:55)
[2020-07-05] MEDS: Sodium Chloride 0.9% 1,000 ML IV SCH (14:55)
[2020-07-05 16:20] LABS: Amphetamine Not Detected (NotDetected); Barbiturates Screen Not Detected (NotDetected); Benzodiazepine Screen Not Detected (NotDetected); Cocaine Metabolite Screen Detected (NotDetected); Medtox Control Line Valid? VALID (VALID); Medtox Reader # READER 4; Methadone Not Detected (NotDetected); Methamphetamine Not Detected (NotDetected); Opiate Screen Detected (NotDetected); Oxycodone Screen Not Detected (NotDetected); Phencyclidine (PCP) Not Detected (NotDetected); THC/Cannabinoid Screen Detected (NotDetected); Tricyclic Screen Not Detected (NotDetected)
[2020-07-05] MEDS: Morphine 4 MG/ML VIAL SLOW IVP PRN ×2 (16:30→23:12)
[2020-07-05] MEDS: Potassium Chloride 20 MEQ in Premix Bag 1 BAG IVPB SCH ×2 (16:31→20:00)
[2020-07-05] MEDS ORDERED: Morphine 4 MG/ML VIAL SLOW IVP SCH (18:30)
[2020-07-05 19:31] VITALS: BMI 23.5
[2020-07-05] MEDS ORDERED: Nicotine 21 MG PATCH TD SCH (20:00)
[2020-07-05] MEDS ORDERED: Famotidine/PF 20 mg/2ml Vial SLOW IVP SCH (21:00)
[2020-07-05 21:04] LABS: SARS-CoV-2 PCR by NAA Not Detected (NotDetected)
[2020-07-06] MEDS: Sodium Chloride 0.9% 1,000 ML IV SCH ×2 (00:16→09:10)
[2020-07-06 04:29] VITALS: TEMP 98.3
[2020-07-06 06:52] LABS: Anion Gap 12 mmol/L (10-20); BUN (Urea Nitrogen) 18 mg/dL (8.4-25.7); Calc. Creatinine Clearance 87 mL/min (70-130); Calcium 8.6 mg/dL (7.8-10.44); Carbon Dioxide 26 mmol/L (22-29); Chloride 100 mmol/L (98-107); Glucose 81 mg/dL (70-105); Potassium 3.3 mmol/L (3.5-5.1); Sodium 135 mmol/L (136-145)
[2020-07-06 08:36] LABS: #Basophils 0.2 thou/uL (0.0-0.2); #Eosinphils 0.4 thou/uL (0.0-0.7); #Lymphocytes 3.7 thou/uL (1.20-3.40); #Monocytes 0.7 thou/uL (0.11-0.59); #Neutrophils 3.1 thou/uL (1.40-6.50); %Basophils 2.4 % (0.0-1.0); %Eosinophils 4.4 % (0.0-10.0); %Lymphocytes 45.7 % (21.0-51.0); %Monocytes 9.1 % (0.0-10.0); %Neutrophils 38.4 % (42.0-75.0); Hemoglobin 11.7 g/dL (14.0-18.0); Mean Corpuscular HGB CONC 32.5 g/dL (32.0-36.0); Mean Corpuscular Hemoglobin 32.8 pg (27.0-31.0); Mean Platelet Volume 7.1 fL (7.4-10.4); Platelet Count 286 thou/uL (130-400); RBC Distribution Width 12.7 % (11.5-14.5); Red Blood Cell (RBC) Count 3.55 mill/uL (4.70-6.10); White Blood Cell (WBC) Count 8.1 thou/uL (4.8-10.8)
[2020-07-06] MEDS: Ondansetron PF 4 MG/2 ML Vial IVP PRN (08:59)
[2020-07-06] MEDS: Morphine 4 MG/ML VIAL SLOW IVP PRN (08:59)
[2020-07-06] MEDS ORDERED: Potassium Chloride 20 MEQ TAB PO SCH (09:15)
[2020-07-06 10:09] VITALS: BP 128/78
== END 2020-07-06 15:12 | disposition home or self-care (01) ==
LOC: ERS 10:02 → T4-B 12:18
PROVIDERS: ADMIT Internal Medicine; ATTEND Internal Medicine
DX: E86.0 Dehydration (principal); N17.9 Acute kidney failure, unspecified; E87.1 Hypo-osmolality and hyponatremia; E87.6 Hypokalemia; F12.10 Cannabis abuse, uncomplicated; F17.210 Nicotine dependence, cigarettes, uncomplicated; R11.2 Nausea with vomiting, unspecified; G89.29 Other chronic pain; R10.84 Generalized abdominal pain; Z79.899 Other long term (current) drug therapy; Z88.8 Allergy status to other drugs, medicaments and biological substances
CPT/HCPCS: 36415; 80048; 80053; 80306; 81003; 81015; 82550; 85025; 87635; 96374; 96375; 96376; G0378; J2270; J2405; J3480; S0028; U0003; U0005

== ENCOUNTER 2020-07-07 14:12 | Emergency (ER) | payer OTHER ==
[2020-07-07 16:24] LABS: #Basophils 0.1 thou/uL (0.0-0.2); #Eosinphils 0.1 thou/uL (0.0-0.7); #Lymphocytes 2.4 thou/uL (1.20-3.40); #Monocytes 0.6 thou/uL (0.11-0.59); #Neutrophils 4.6 thou/uL (1.40-6.50); %Basophils 0.9 % (0.0-1.0); %Eosinophils 0.7 % (0.0-10.0); %Lymphocytes 31.2 % (21.0-51.0); %Monocytes 7.9 % (0.0-10.0); %Neutrophils 59.4 % (42.0-75.0); Mean Corpuscular HGB CONC 32.4 g/dL (32.0-36.0); Mean Corpuscular Hemoglobin 32.6 pg (27.0-31.0); Mean Platelet Volume 7.2 fL (7.4-10.4); Platelet Count 322 thou/uL (130-400); RBC Distribution Width 12.5 % (11.5-14.5); White Blood Cell (WBC) Count 7.8 thou/uL (4.8-10.8)
[2020-07-07 16:39] LABS: ALT (SGPT) 19 U/L (8-55); AST (SGOT) 29 U/L (5-34); Albumin 4.8 g/dL (3.5-5.0); Alkaline Phosphatase 68 U/L (40-110); Anion Gap 19 mmol/L (10-20); BUN (Urea Nitrogen) 11 mg/dL (8.4-25.7); Bilirubin, Total 1.1 mg/dL (0.2-1.2); Calc. Creatinine Clearance 0 mL/min (70-130); Calcium 9.7 mg/dL (7.8-10.44); Carbon Dioxide 25 mmol/L (22-29); Chloride 94 mmol/L (98-107); Globulin 3.5 g/dL (2.4-3.5); Glucose 85 mg/dL (70-105); Lipase 10 U/L (8-78); Potassium 3.4 mmol/L (3.5-5.1); Protein, Total 8.3 g/dL (6.0-8.3); Sodium 135 mmol/L (136-145)
[2020-07-07] MEDS ORDERED: diphenhydrAMINE 50 MG/ML VIAL ONE (18:05)
[2020-07-07] MEDS ORDERED: Haloperidol Lactate 5 MG/ML VIAL ONE (18:05)
== END 2020-07-07 20:21 | disposition home or self-care (01) ==
LOC: ERS 14:12
DX: R10.32 Left lower quadrant pain (principal); G89.29 Other chronic pain; F17.210 Nicotine dependence, cigarettes, uncomplicated
CPT/HCPCS: 36415; 74177; 80053; 83605; 83690; 85025; 96374; 96375; J1200; J1630

== ENCOUNTER 2020-07-19 16:18 | Emergency (ER) | payer OTHER ==
[2020-07-19 16:52] LABS: #Basophils 0.1 thou/uL (0.0-0.2); #Eosinphils 0.3 thou/uL (0.0-0.7); #Lymphocytes 2.4 thou/uL (1.20-3.40); #Monocytes 0.6 thou/uL (0.11-0.59); %Basophils 1.7 % (0.0-1.0); %Eosinophils 6.3 % (0.0-10.0); %Lymphocytes 44.7 % (21.0-51.0); %Monocytes 11.1 % (0.0-10.0); %Neutrophils 36.2 % (42.0-75.0); Hemoglobin 13.1 g/dL (14.0-18.0); Mean Corpuscular Hemoglobin 34.5 pg (27.0-31.0); Mean Platelet Volume 6.5 fL (7.4-10.4); Platelet Count 374 thou/uL (130-400); RBC Distribution Width 12.9 % (11.5-14.5); White Blood Cell (WBC) Count 5.4 thou/uL (4.8-10.8)
[2020-07-19] MEDS ORDERED: diphenhydrAMINE 50 MG/ML VIAL ONE (17:11)
[2020-07-19] MEDS ORDERED: Haloperidol Lactate 5 MG/ML VIAL ONE (17:11)
[2020-07-19 17:14] LABS: ALT (SGPT) 10 U/L (8-55); AST (SGOT) 14 U/L (5-34); Albumin 4.2 g/dL (3.5-5.0); Alkaline Phosphatase 60 U/L (40-110); Anion Gap 13 mmol/L (10-20); BUN (Urea Nitrogen) 7 mg/dL (8.4-25.7); Bilirubin, Total 0.5 mg/dL (0.2-1.2); Calc. Creatinine Clearance 0 mL/min (70-130); Calcium 9.3 mg/dL (7.8-10.44); Carbon Dioxide 25 mmol/L (22-29); Chloride 104 mmol/L (98-107); Glucose 92 mg/dL (70-105); Lipase 13 U/L (8-78); Potassium 3.5 mmol/L (3.5-5.1); Protein, Total 7.2 g/dL (6.0-8.3); Sodium 138 mmol/L (136-145)
[2020-07-19 17:34] LABS: Bilirubin Negative (Negative); Blood, Urine Negative (Negative); Glucose, Urine (Dipstick) Normal (Negative); Ketone, Urine Negative (Negative); Leukocyte Negative Leu/uL (Negative); Nitrite Negative (Negative); Protein, Urine (Dipstick) 20 mg/dL (Neg-Trace); Specific Gravity, Urine 1.025 (1.002-1.036); Urobilinogen Normal mg/dL (Less than 2); pH, Urine 7.5 (5.0-9.0)
[2020-07-19 17:35] LABS: Clarity Hazy (Clear)
== END 2020-07-19 18:01 | disposition home or self-care (01) ==
LOC: ERS 16:18
DX: R10.84 Generalized abdominal pain (principal); Z79.899 Other long term (current) drug therapy; F17.210 Nicotine dependence, cigarettes, uncomplicated
CPT/HCPCS: 36415; 80053; 81003; 83690; 85025; 96374; 96375; J1200; J1630

== ENCOUNTER 2020-07-29 19:59 | Emergency (ER) | payer OTHER ==
[2020-07-29 21:09] LABS: #Basophils 0.1 thou/uL (0.0-0.2); #Eosinphils 0.1 thou/uL (0.0-0.7); #Lymphocytes 3.2 thou/uL (1.20-3.40); #Monocytes 0.6 thou/uL (0.11-0.59); #Neutrophils 3.3 thou/uL (1.40-6.50); %Basophils 1.5 % (0.0-1.0); %Eosinophils 1.5 % (0.0-10.0); %Lymphocytes 44.1 % (21.0-51.0); %Monocytes 8.6 % (0.0-10.0); %Neutrophils 44.3 % (42.0-75.0); Mean Corpuscular HGB CONC 34.4 g/dL (32.0-36.0); Mean Corpuscular Hemoglobin 34.5 pg (27.0-31.0); Mean Platelet Volume 6.7 fL (7.4-10.4); Platelet Count 284 thou/uL (130-400); RBC Distribution Width 12.5 % (11.5-14.5); Red Blood Cell (RBC) Count 4.06 mill/uL (4.70-6.10); White Blood Cell (WBC) Count 7.4 thou/uL (4.8-10.8)
[2020-07-29 21:33] LABS: ALT (SGPT) 10 U/L (8-55); AST (SGOT) 15 U/L (5-34); Albumin 4.4 g/dL (3.5-5.0); Alkaline Phosphatase 62 U/L (40-110); Anion Gap 14 mmol/L (10-20); BUN (Urea Nitrogen) 11 mg/dL (8.4-25.7); Bilirubin, Total 0.5 mg/dL (0.2-1.2); Calc. Creatinine Clearance 0 mL/min (70-130); Calcium 9.5 mg/dL (7.8-10.44); Carbon Dioxide 29 mmol/L (22-29); Chloride 100 mmol/L (98-107); Glucose 95 mg/dL (70-105); Lipase 10 U/L (8-78); Potassium 3.2 mmol/L (3.5-5.1); Protein, Total 7.4 g/dL (6.0-8.3); Sodium 140 mmol/L (136-145)
== END 2020-07-29 22:05 | disposition home or self-care (01) ==
LOC: ERS 19:59
DX: R10.9 Unspecified abdominal pain (principal); G89.29 Other chronic pain; F17.210 Nicotine dependence, cigarettes, uncomplicated; Z79.899 Other long term (current) drug therapy
CPT/HCPCS: 36415; 80053; 83690; 85025; 99284

== ENCOUNTER 2020-08-03 13:39 | Emergency (ER) | payer OTHER ==
[2020-08-03 14:26] LABS: #Basophils 0.1 thou/uL (0.0-0.2); #Eosinphils 0.2 thou/uL (0.0-0.7); #Lymphocytes 1.8 thou/uL (1.20-3.40); #Monocytes 0.6 thou/uL (0.11-0.59); #Neutrophils 4.1 thou/uL (1.40-6.50); %Basophils 1.4 % (0.0-1.0); %Eosinophils 2.5 % (0.0-10.0); %Lymphocytes 26.6 % (21.0-51.0); %Monocytes 8.2 % (0.0-10.0); %Neutrophils 61.2 % (42.0-75.0); Hemoglobin 14.8 g/dL (14.0-18.0); Mean Corpuscular HGB CONC 33.9 g/dL (32.0-36.0); Mean Corpuscular Hemoglobin 34.2 pg (27.0-31.0); Mean Platelet Volume 7.3 fL (7.4-10.4); Platelet Count 275 thou/uL (130-400); RBC Distribution Width 12.2 % (11.5-14.5); Red Blood Cell (RBC) Count 4.33 mill/uL (4.70-6.10); White Blood Cell (WBC) Count 6.8 thou/uL (4.8-10.8)
[2020-08-03 14:42] LABS: ALT (SGPT) 11 U/L (8-55); AST (SGOT) 15 U/L (5-34); Albumin 4.3 g/dL (3.5-5.0); Alkaline Phosphatase 55 U/L (40-110); Anion Gap 14 mmol/L (10-20); BUN (Urea Nitrogen) 14 mg/dL (8.4-25.7); Bilirubin, Total 0.8 mg/dL (0.2-1.2); Calc. Creatinine Clearance 0 mL/min (70-130); Calcium 9.7 mg/dL (7.8-10.44); Carbon Dioxide 32 mmol/L (22-29); Chloride 93 mmol/L (98-107); Globulin 3.2 g/dL (2.4-3.5); Glucose 151 mg/dL (70-105); Lipase 8 U/L (8-78); Protein, Total 7.5 g/dL (6.0-8.3); Sodium 136 mmol/L (136-145)
[2020-08-03 14:58] LABS: Potassium 2.6 mmol/L (3.5-5.1)
[2020-08-03] MEDS ORDERED: Acetaminophen 500 MG TAB ONE (15:27)
[2020-08-03] MEDS ORDERED: Potassium Chloride 20 MEQ TAB ONE (15:27)
[2020-08-03] MEDS ORDERED: Magnesium 2 GM/50 ML BAG (IN WATER) ONE ×2 (15:27→17:27)
[2020-08-03] MEDS ORDERED: Aspirin Chewable 81 MG TAB ONE (15:27)
[2020-08-03 15:52] LABS: Bilirubin Moderate (Negative); Blood, Urine Negative (Negative); Glucose, Urine (Dipstick) Negative (Negative); Ketone, Urine Negative (Negative); Leukocyte Negative (Negative); Nitrite Negative (Negative); Protein, Urine (Dipstick) 30 mg/dL (Neg-Trace); pH, Urine 5.5 (5.0-9.0)
[2020-08-03 15:53] LABS: Bacteria/HPF None Seen HPF (None Seen); RBC/HPF 0-3 HPF (0-3); Squamous Epithelial 0-3 HPF (0-3); WBC/HPF 0-3 HPF (0-3)
[2020-08-03 15:54] LABS: Clarity Clear (Clear)
[2020-08-03 15:55] LABS: Specific Gravity, Urine 1.036 (1.002-1.036)
== END 2020-08-03 16:45 | disposition home or self-care (01) ==
LOC: ERS 13:39
DX: K52.9 Noninfective gastroenteritis and colitis, unspecified (principal); E87.6 Hypokalemia; R07.9 Chest pain, unspecified; F17.210 Nicotine dependence, cigarettes, uncomplicated; Z79.899 Other long term (current) drug therapy
CPT/HCPCS: 36415; 74177; 80053; 81003; 81015; 83690; 84484; 85025; 93005; 96365; J3475; Q9967

== ENCOUNTER 2020-08-10 18:21 | Emergency (ER) | payer OTHER ==
[2020-08-10 19:09] LABS: Bilirubin Negative (Negative); Blood, Urine Negative (Negative); Clarity Clear (Clear); Glucose, Urine (Dipstick) Negative (Negative); Ketone, Urine Trace mg/dL (Negative); Leukocyte Negative (Negative); Nitrite Negative (Negative); Protein, Urine (Dipstick) 30 mg/dL (Neg-Trace); Specific Gravity, Urine 1.015 (1.005-1.030); pH, Urine 8.5 (5.0-9.0)
[2020-08-10 19:12] LABS: #Basophils 0.1 thou/uL (0.0-0.2); #Eosinphils 0.2 thou/uL (0.0-0.7); #Lymphocytes 2.3 thou/uL (1.20-3.40); #Monocytes 0.5 thou/uL (0.11-0.59); #Neutrophils 4.4 thou/uL (1.40-6.50); %Basophils 1.4 % (0.0-1.0); %Eosinophils 3.1 % (0.0-10.0); %Lymphocytes 29.9 % (21.0-51.0); %Neutrophils 58.6 % (42.0-75.0); Hemoglobin 13.6 g/dL (14.0-18.0); Mean Corpuscular HGB CONC 33.1 g/dL (32.0-36.0); Mean Corpuscular Hemoglobin 33.8 pg (27.0-31.0); Mean Platelet Volume 7.2 fL (7.4-10.4); Platelet Count 274 thou/uL (130-400); RBC Distribution Width 12.4 % (11.5-14.5); Red Blood Cell (RBC) Count 4.03 mill/uL (4.70-6.10); White Blood Cell (WBC) Count 7.5 thou/uL (4.8-10.8)
[2020-08-10 19:13] LABS: Bacteria/HPF None Seen HPF (None Seen); Mucous/LPF Rare LPF (<2+); RBC/HPF 0-3 HPF (0-3); Squamous Epithelial 0-3 HPF (0-3); WBC/HPF 0-3 HPF (0-3)
[2020-08-10] MEDS ORDERED: Lidocaine Viscous Sol 2% 15 ml UD Cup ONE (19:16)
[2020-08-10] MEDS ORDERED: Mag-Al 1200 mg/1200 mg/30 ML UDCUP ONE (19:16)
[2020-08-10 19:34] LABS: ALT (SGPT) 10 U/L (8-55); AST (SGOT) 17 U/L (5-34); Albumin 4.5 g/dL (3.5-5.0); Alkaline Phosphatase 51 U/L (40-110); Anion Gap 15 mmol/L (10-20); BUN (Urea Nitrogen) 9 mg/dL (8.4-25.7); Bilirubin, Total 0.8 mg/dL (0.2-1.2); Calc. Creatinine Clearance 0 mL/min (70-130); Calcium 9.6 mg/dL (7.8-10.44); Carbon Dioxide 29 mmol/L (22-29); Chloride 101 mmol/L (98-107); Globulin 3.1 g/dL (2.4-3.5); Glucose 107 mg/dL (70-105); Lipase 11 U/L (8-78); Potassium 3.1 mmol/L (3.5-5.1); Protein, Total 7.6 g/dL (6.0-8.3); Sodium 142 mmol/L (136-145)
== END 2020-08-10 20:20 | disposition home or self-care (01) ==
LOC: ERS 18:21
DX: R10.84 Generalized abdominal pain (principal); G89.29 Other chronic pain; E87.6 Hypokalemia; F17.210 Nicotine dependence, cigarettes, uncomplicated
CPT/HCPCS: 36415; 71045; 80053; 81003; 81015; 83690; 84484; 85025; 93005

== ENCOUNTER 2020-09-29 14:34 | Emergency (ER) | payer OTHER ==
[2020-09-29] MEDS ORDERED: Ondansetron PF 4 MG/2 ML Vial ONE (15:18)
[2020-09-29 15:20] LABS: #Basophils 0.1 thou/uL (0.0-0.2); #Eosinphils 0.1 thou/uL (0.0-0.7); #Lymphocytes 2.5 thou/uL (1.20-3.40); #Monocytes 0.8 thou/uL (0.11-0.59); #Neutrophils 5.2 thou/uL (1.40-6.50); %Basophils 0.8 % (0.0-1.0); %Eosinophils 0.7 % (0.0-10.0); %Lymphocytes 28.8 % (21.0-51.0); %Monocytes 9.4 % (0.0-10.0); %Neutrophils 60.2 % (42.0-75.0); Hemoglobin 15.1 g/dL (14.0-18.0); Mean Corpuscular HGB CONC 33.2 g/dL (32.0-36.0); Mean Corpuscular Hemoglobin 33.4 pg (27.0-31.0); Mean Platelet Volume 7.2 fL (7.4-10.4); Platelet Count 314 thou/uL (130-400); RBC Distribution Width 12.9 % (11.5-14.5); Red Blood Cell (RBC) Count 4.53 mill/uL (4.70-6.10); White Blood Cell (WBC) Count 8.7 thou/uL (4.8-10.8)
[2020-09-29 15:44] LABS: ALT (SGPT) 10 U/L (8-55); AST (SGOT) 20 U/L (5-34); Albumin 4.7 g/dL (3.5-5.0); Alkaline Phosphatase 68 U/L (40-110); Anion Gap 15 mmol/L (10-20); BUN (Urea Nitrogen) 11 mg/dL (8.4-25.7); Bilirubin, Total 0.8 mg/dL (0.2-1.2); Calc. Creatinine Clearance 0 mL/min (70-130); Carbon Dioxide 27 mmol/L (22-29); Chloride 94 mmol/L (98-107); Globulin 3.8 g/dL (2.4-3.5); Glucose 101 mg/dL (70-105); Lipase 22 U/L (8-78); Potassium 3.1 mmol/L (3.5-5.1); Protein, Total 8.5 g/dL (6.0-8.3); Sodium 133 mmol/L (136-145)
[2020-09-29] MEDS ORDERED: Haloperidol Lactate 5 MG/ML VIAL ONE (15:50)
== END 2020-09-29 17:40 | disposition home or self-care (01) ==
LOC: ERS 14:34
DX: R10.9 Unspecified abdominal pain (principal); R10.816 Epigastric abdominal tenderness; F17.210 Nicotine dependence, cigarettes, uncomplicated
CPT/HCPCS: 36415; 80053; 83605; 83690; 85025; 96372; 96374; J1630; J2405

== ENCOUNTER 2020-10-12 04:58 | Emergency (ER) | payer OTHER ==
[2020-10-12 05:46] LABS: #Basophils 0.1 thou/uL (0.0-0.2); #Eosinphils 0.3 thou/uL (0.0-0.7); #Lymphocytes 2.6 thou/uL (1.20-3.40); #Monocytes 0.6 thou/uL (0.11-0.59); %Basophils 0.9 % (0.0-1.0); %Eosinophils 3.3 % (0.0-10.0); %Lymphocytes 27.1 % (21.0-51.0); %Monocytes 6.6 % (0.0-10.0); %Neutrophils 62.1 % (42.0-75.0); Hemoglobin 12.9 g/dL (14.0-18.0); Mean Corpuscular HGB CONC 32.5 g/dL (32.0-36.0); Mean Corpuscular Hemoglobin 32.8 pg (27.0-31.0); Mean Platelet Volume 6.9 fL (7.4-10.4); Platelet Count 338 thou/uL (130-400); RBC Distribution Width 12.7 % (11.5-14.5); Red Blood Cell (RBC) Count 3.92 mill/uL (4.70-6.10); White Blood Cell (WBC) Count 9.6 thou/uL (4.8-10.8)
[2020-10-12] MEDS ORDERED: Mag-Al 1200 mg/1200 mg/30 ML UDCUP ONE (05:51)
[2020-10-12] MEDS ORDERED: Haloperidol Lactate 5 MG/ML VIAL ONE (05:51)
[2020-10-12] MEDS ORDERED: Lidocaine Viscous Sol 2% 15 ml UD Cup ONE (05:51)
[2020-10-12 06:11] LABS: ALT (SGPT) 10 U/L (8-55); AST (SGOT) 17 U/L (5-34); Albumin 4.1 g/dL (3.5-5.0); Alkaline Phosphatase 59 U/L (40-110); Anion Gap 13 mmol/L (10-20); BUN (Urea Nitrogen) 8 mg/dL (8.4-25.7); Bilirubin, Total 0.4 mg/dL (0.2-1.2); Calc. Creatinine Clearance 0 mL/min (70-130); Calcium 9.5 mg/dL (7.8-10.44); Carbon Dioxide 27 mmol/L (22-29); Chloride 99 mmol/L (98-107); Globulin 3.1 g/dL (2.4-3.5); Glucose 113 mg/dL (70-105); Lipase 35 U/L (8-78); Potassium 3.4 mmol/L (3.5-5.1); Protein, Total 7.2 g/dL (6.0-8.3); Sodium 136 mmol/L (136-145)
[2020-10-12] MEDS ORDERED: Ondansetron PF 4 MG/2 ML Vial ONE (06:58)
== END 2020-10-12 07:15 | disposition home or self-care (01) ==
LOC: ERS 04:58
DX: R10.9 Unspecified abdominal pain (principal); F17.210 Nicotine dependence, cigarettes, uncomplicated
CPT/HCPCS: 36415; 80053; 83690; 85025; 96374; 96375; J1630; J2405

== ENCOUNTER 2020-11-11 02:19 | Emergency (ER) | payer OTHER ==
[2020-11-11] MEDS ORDERED: Haloperidol Lactate 5 MG/ML VIAL ONE (02:56)
== END 2020-11-11 04:47 | disposition home or self-care (01) ==
LOC: ERS 02:19
DX: R10.84 Generalized abdominal pain (principal); F17.210 Nicotine dependence, cigarettes, uncomplicated
CPT/HCPCS: 96372; 99284; J1630

== ENCOUNTER 2021-01-04 01:01 | Emergency (ER) | payer OTHER | END 2021-01-04 03:02 | disposition home or self-care (01) | LOC: ERS 01:01 | DX: R11.2 Nausea with vomiting, unspecified (principal); R10.10 Upper abdominal pain, unspecified; F17.210 Nicotine dependence, cigarettes, uncomplicated | CPT/HCPCS: 99284 ==

== ENCOUNTER 2021-02-05 15:21 | Emergency (ER) | payer OTHER ==
[2021-02-05] MEDS ORDERED: Morphine 4 MG/ML VIAL ONE (15:31)
[2021-02-05] MEDS ORDERED: Ondansetron PF 4 MG/2 ML Vial ONE (15:32)
[2021-02-05] MEDS ORDERED: Haloperidol Lactate 5 MG/ML VIAL ONE (16:16)
[2021-02-05] MEDS ORDERED: Promethazine HCl 25 MG/ML VIAL ONE (16:32)
[2021-02-05 16:33] LABS: #Basophils 0.1 thou/uL (0.0-0.2); #Eosinphils 0.1 thou/uL (0.0-0.7); #Lymphocytes 1.7 thou/uL (1.20-3.40); #Monocytes 0.4 thou/uL (0.11-0.59); #Neutrophils 4.6 thou/uL (1.40-6.50); %Basophils 1.2 % (0.0-1.0); %Eosinophils 0.8 % (0.0-10.0); %Lymphocytes 24.9 % (21.0-51.0); %Monocytes 6.3 % (0.0-10.0); %Neutrophils 66.9 % (42.0-75.0); Mean Corpuscular Hemoglobin 33.1 pg (27.0-31.0); Mean Platelet Volume 6.7 fL (7.4-10.4); Platelet Count 340 thou/uL (130-400); RBC Distribution Width 12.8 % (11.5-14.5); Red Blood Cell (RBC) Count 3.93 mill/uL (4.70-6.10); White Blood Cell (WBC) Count 6.9 thou/uL (4.8-10.8)
[2021-02-05 17:07] LABS: ALT (SGPT) 19 U/L (8-55); AST (SGOT) 22 U/L (5-34); Albumin 4.4 g/dL (3.5-5.0); Alkaline Phosphatase 60 U/L (40-110); Anion Gap 14 mmol/L (10-20); BUN (Urea Nitrogen) 10 mg/dL (8.4-25.7); Bilirubin, Total 0.7 mg/dL (0.2-1.2); Calc. Creatinine Clearance 0 mL/min (70-130); Calcium 10.1 mg/dL (7.8-10.44); Carbon Dioxide 28 mmol/L (22-29); Chloride 101 mmol/L (98-107); Globulin 2.8 g/dL (2.4-3.5); Glucose 96 mg/dL (70-105); Lipase 28 U/L (8-78); Potassium 3.8 mmol/L (3.5-5.1); Protein, Total 7.2 g/dL (6.0-8.3); Sodium 139 mmol/L (136-145)
== END 2021-02-05 18:11 | disposition home or self-care (01) ==
LOC: ERS 15:21
DX: R10.84 Generalized abdominal pain (principal); F17.210 Nicotine dependence, cigarettes, uncomplicated
CPT/HCPCS: 36415; 74177; 80053; 83690; 85025; 96374; 96375; J1630; J2270; J2405; J2550

== ENCOUNTER 2021-03-14 08:27 | Emergency (ER) | payer OTHER ==
[2021-03-14] MEDS ORDERED: Haloperidol Lactate 5 MG/ML VIAL ONE ×2 (09:38→10:11)
[2021-03-14 09:57] LABS: Hemoglobin 14.6 g/dL (14.0-18.0); Mean Corpuscular HGB CONC 32.7 g/dL (32.0-36.0); Mean Corpuscular Hemoglobin 31.9 pg (27.0-31.0); Mean Corpuscular Volume 97.5 fL (78.0-98.0); Mean Platelet Volume 6.8 fL (7.4-10.4); Platelet Count 345 thou/uL (130-400); Red Blood Cell (RBC) Count 4.57 mill/uL (4.70-6.10)
[2021-03-14 10:11] LABS: ALT (SGPT) 17 U/L (8-55); AST (SGOT) 22 U/L (5-34); Albumin 4.4 g/dL (3.5-5.0); Alkaline Phosphatase 63 U/L (40-110); Anion Gap 17 mmol/L (10-20); BUN (Urea Nitrogen) 11 mg/dL (8.4-25.7); Bilirubin, Total 0.5 mg/dL (0.2-1.2); Calc. Creatinine Clearance 0 mL/min (70-130); Calcium 10.2 mg/dL (7.8-10.44); Carbon Dioxide 22 mmol/L (22-29); Chloride 103 mmol/L (98-107); Globulin 3.8 g/dL (2.4-3.5); Glucose 90 mg/dL (70-105); Lipase 30 U/L (8-78); Potassium 3.8 mmol/L (3.5-5.1); Protein, Total 8.2 g/dL (6.0-8.3); Sodium 138 mmol/L (136-145)
[2021-03-14 10:20] LABS: Band 7 % (5-11); Eosinophils 5 % (0-10); Lymphocytes 34 % (21-51); MDiff Complete? YES; Monocytes 2 % (0-10); Neutrophil 52 % (42-75); Nucleated RBC 1 % (0); White Blood Cell (WBC) Count 6.5 thou/uL (4.8-10.8)
[2021-03-14] MEDS ORDERED: Iopamidol-370 76% 500 ML 1 ML ONE (12:26)
== END 2021-03-14 13:08 | disposition home or self-care (01) ==
LOC: ERS 08:27
DX: R10.9 Unspecified abdominal pain (principal); F17.210 Nicotine dependence, cigarettes, uncomplicated
CPT/HCPCS: 36415; 74177; 80053; 83690; 85025; 93005; 96374; J1630; Q9967

== ENCOUNTER 2021-03-25 13:24 | Emergency (ER) | payer OTHER ==
[2021-03-25] MEDS ORDERED: Prochlorperazine 10 MG/2 ML VIAL ONE (18:06)
[2021-03-25 19:30] LABS: #Basophils 0.1 thou/uL (0.0-0.2); #Eosinphils 0.1 thou/uL (0.0-0.7); #Lymphocytes 2.2 thou/uL (1.20-3.40); #Monocytes 0.6 thou/uL (0.11-0.59); #Neutrophils 5.3 thou/uL (1.40-6.50); %Basophils 0.9 % (0.0-1.0); %Eosinophils 1.6 % (0.0-10.0); %Lymphocytes 26.4 % (21.0-51.0); %Monocytes 6.8 % (0.0-10.0); %Neutrophils 64.4 % (42.0-75.0); Mean Corpuscular HGB CONC 32.2 g/dL (32.0-36.0); Mean Corpuscular Hemoglobin 31.8 pg (27.0-31.0); Mean Corpuscular Volume 98.7 fL (78.0-98.0); Mean Platelet Volume 6.9 fL (7.4-10.4); Platelet Count 285 thou/uL (130-400); RBC Distribution Width 13.7 % (11.5-14.5); Red Blood Cell (RBC) Count 3.79 mill/uL (4.70-6.10); White Blood Cell (WBC) Count 8.3 thou/uL (4.8-10.8)
[2021-03-25 19:50] LABS: ALT (SGPT) 10 U/L (8-55); AST (SGOT) 17 U/L (5-34); Albumin 4.3 g/dL (3.5-5.0); Alkaline Phosphatase 55 U/L (40-110); Anion Gap 16 mmol/L (10-20); BUN (Urea Nitrogen) 12 mg/dL (8.4-25.7); Bilirubin, Total 0.5 mg/dL (0.2-1.2); Calc. Creatinine Clearance 0 mL/min (70-130); Calcium 9.2 mg/dL (7.8-10.44); Carbon Dioxide 24 mmol/L (22-29); Chloride 107 mmol/L (98-107); Globulin 3.2 g/dL (2.4-3.5); Glucose 80 mg/dL (70-105); Lipase 23 U/L (8-78); Potassium 3.7 mmol/L (3.5-5.1); Protein, Total 7.5 g/dL (6.0-8.3); Sodium 143 mmol/L (136-145)
== END 2021-03-25 21:07 | disposition home or self-care (01) ==
LOC: ERS 13:24
DX: R10.32 Left lower quadrant pain (principal); F17.210 Nicotine dependence, cigarettes, uncomplicated
CPT/HCPCS: 36415; 80053; 83690; 85025; 96365; J0780

== ENCOUNTER 2021-06-22 13:29 | Emergency (ER) | payer OTHER ==
[2021-06-22] MEDS ORDERED: Pantoprazole 40 MG VIAL ONE (14:25)
[2021-06-22] MEDS ORDERED: Midazolam HCl 2 mg/2 ml Vial ONE (14:25)
[2021-06-22] MEDS ORDERED: Haloperidol Lactate 5 MG/ML VIAL ONE (14:25)
[2021-06-22 14:33] LABS: #Basophils 0.1 thou/uL (0.0-0.2); #Lymphocytes 2.4 thou/uL (1.20-3.40); #Monocytes 0.7 thou/uL (0.11-0.59); #Neutrophils 4.3 thou/uL (1.40-6.50); %Basophils 1.1 % (0.0-1.0); %Eosinophils 0.4 % (0.0-10.0); %Lymphocytes 32.4 % (21.0-51.0); Hemoglobin 14.4 g/dL (14.0-18.0); Mean Corpuscular HGB CONC 33.2 g/dL (32.0-36.0); Mean Corpuscular Hemoglobin 32.3 pg (27.0-31.0); Mean Corpuscular Volume 97.5 fL (78.0-98.0); Mean Platelet Volume 6.8 fL (7.4-10.4); Platelet Count 393 thou/uL (130-400); RBC Distribution Width 14.2 % (11.5-14.5); Red Blood Cell (RBC) Count 4.44 mill/uL (4.70-6.10); White Blood Cell (WBC) Count 7.5 thou/uL (4.8-10.8)
[2021-06-22 14:36] LABS: ALT (SGPT) 15 U/L (8-55); AST (SGOT) 22 U/L (5-34); Albumin 4.7 g/dL (3.5-5.0); Alkaline Phosphatase 62 U/L (40-110); Anion Gap 16 mmol/L (10-20); BUN (Urea Nitrogen) 15 mg/dL (8.4-25.7); Bilirubin, Total 0.6 mg/dL (0.2-1.2); Calc. Creatinine Clearance 0 mL/min (70-130); Calcium 9.8 mg/dL (7.8-10.44); Carbon Dioxide 31 mmol/L (22-29); Chloride 92 mmol/L (98-107); Globulin 3.2 g/dL (2.4-3.5); Glucose 105 mg/dL (70-105); Lipase 12 U/L (8-78); Potassium 3.3 mmol/L (3.5-5.1); Protein, Total 7.9 g/dL (6.0-8.3); Sodium 136 mmol/L (136-145)
== END 2021-06-22 16:19 | disposition home or self-care (01) ==
LOC: ERS 13:29 → MERGE 13:29 → ERS 16:19
DX: R10.12 Left upper quadrant pain (principal); E87.6 Hypokalemia; R11.10 Vomiting, unspecified; R19.7 Diarrhea, unspecified
CPT/HCPCS: 36415; 74177; 80053; 83690; 84484; 85025; 93005; 96374; C9113; J1630; J2250

== ENCOUNTER 2021-06-30 07:55 | Emergency (ER) | payer OTHER ==
[2021-06-30] MEDS ORDERED: Haloperidol Lactate 5 MG/ML VIAL ONE (08:18)
[2021-06-30] MEDS ORDERED: Pantoprazole 40 MG VIAL ONE (08:18)
[2021-06-30 08:50] LABS: ALT (SGPT) 12 U/L (8-55); AST (SGOT) 18 U/L (5-34); Albumin 4.3 g/dL (3.5-5.0); Alkaline Phosphatase 53 U/L (40-110); Anion Gap 12 mmol/L (10-20); BUN (Urea Nitrogen) 6 mg/dL (8.4-25.7); Bilirubin, Total 0.5 mg/dL (0.2-1.2); Calc. Creatinine Clearance 0 mL/min (70-130); Calcium 9.3 mg/dL (7.8-10.44); Carbon Dioxide 29 mmol/L (22-29); Chloride 102 mmol/L (98-107); Globulin 2.7 g/dL (2.4-3.5); Glucose 109 mg/dL (70-105); Lipase 19 U/L (8-78); Potassium 3.6 mmol/L (3.5-5.1); Sodium 139 mmol/L (136-145)
[2021-06-30] MEDS ORDERED: Iopamidol-370 76% 500 ML 1 ML ONE (08:52)
[2021-06-30 08:56] LABS: #Basophils 0.1 thou/uL (0.0-0.2); #Eosinphils 0.3 thou/uL (0.0-0.7); #Lymphocytes 1.9 thou/uL (1.20-3.40); #Monocytes 0.5 thou/uL (0.11-0.59); #Neutrophils 4.7 thou/uL (1.40-6.50); %Basophils 1.2 % (0.0-1.0); %Lymphocytes 25.8 % (21.0-51.0); %Monocytes 6.3 % (0.0-10.0); %Neutrophils 62.6 % (42.0-75.0); Hemoglobin 12.9 g/dL (14.0-18.0); Mean Corpuscular HGB CONC 32.5 g/dL (32.0-36.0); Mean Corpuscular Hemoglobin 32.4 pg (27.0-31.0); Mean Corpuscular Volume 99.8 fL (78.0-98.0); Platelet Count 334 thou/uL (130-400); Red Blood Cell (RBC) Count 3.99 mill/uL (4.70-6.10); White Blood Cell (WBC) Count 7.5 thou/uL (4.8-10.8)
== END 2021-06-30 11:40 | disposition home or self-care (01) ==
LOC: ERS 07:55
DX: K52.9 Noninfective gastroenteritis and colitis, unspecified (principal); F17.210 Nicotine dependence, cigarettes, uncomplicated
CPT/HCPCS: 74177; 80053; 83690; 85025; 96374; 96375; C9113; J1630; Q9967

== ENCOUNTER 2021-07-28 09:55 | Emergency (ER) | payer OTHER ==
[2021-07-28] MEDS ORDERED: Iopamidol-370 76% 500 ML 1 ML ONE (09:58)
[2021-07-28] MEDS ORDERED: Morphine 4 MG/ML VIAL ONE (10:04)
[2021-07-28] MEDS ORDERED: Ondansetron PF 4 MG/2 ML Vial ONE ×2 (10:04→11:26)
[2021-07-28 10:29] LABS: #Basophils 0.1 thou/uL (0.0-0.2); #Eosinphils 0.2 thou/uL (0.0-0.7); #Lymphocytes 1.9 thou/uL (1.20-3.40); #Monocytes 0.5 thou/uL (0.11-0.59); #Neutrophils 5.5 thou/uL (1.40-6.50); %Eosinophils 2.9 % (0.0-10.0); %Lymphocytes 22.8 % (21.0-51.0); %Monocytes 6.1 % (0.0-10.0); %Neutrophils 67.2 % (42.0-75.0); Hemoglobin 13.5 g/dL (14.0-18.0); Mean Corpuscular HGB CONC 31.6 g/dL (32.0-36.0); Mean Corpuscular Hemoglobin 31.2 pg (27.0-31.0); Mean Corpuscular Volume 98.8 fL (78.0-98.0); Mean Platelet Volume 6.6 fL (7.4-10.4); Platelet Count 475 thou/uL (130-400); RBC Distribution Width 13.9 % (11.5-14.5); Red Blood Cell (RBC) Count 4.32 mill/uL (4.70-6.10); White Blood Cell (WBC) Count 8.2 thou/uL (4.8-10.8)
[2021-07-28 10:48] LABS: ALT (SGPT) 23 U/L (8-55); AST (SGOT) 25 U/L (5-34); Albumin 4.9 g/dL (3.5-5.0); Alkaline Phosphatase 69 U/L (40-110); Anion Gap 14 mmol/L (10-20); BUN (Urea Nitrogen) 16 mg/dL (8.4-25.7); Bilirubin, Total 0.5 mg/dL (0.2-1.2); Calc. Creatinine Clearance 0 mL/min (70-130); Calcium 9.9 mg/dL (7.8-10.44); Carbon Dioxide 27 mmol/L (22-29); Chloride 104 mmol/L (98-107); Globulin 3.2 g/dL (2.4-3.5); Glucose 124 mg/dL (70-105); Lipase 24 U/L (8-78); Potassium 3.9 mmol/L (3.5-5.1); Protein, Total 8.1 g/dL (6.0-8.3); Sodium 141 mmol/L (136-145)
== END 2021-07-28 11:51 | disposition home or self-care (01) ==
LOC: ERS 09:55
DX: R10.9 Unspecified abdominal pain (principal); R11.2 Nausea with vomiting, unspecified; F17.210 Nicotine dependence, cigarettes, uncomplicated; Z79.899 Other long term (current) drug therapy
CPT/HCPCS: 74177; 80053; 83690; 85025; 93005; 96374; 96375; 96376; J2270; J2405

== ENCOUNTER 2021-08-05 02:10 | Emergency (ER) | payer OTHER ==
[2021-08-05] MEDS ORDERED: Dicyclomine 20 MG/2 ML VIAL ONE (02:30)
[2021-08-05 02:33] LABS: #Basophils 0.1 thou/uL (0.0-0.2); #Eosinphils 0.1 thou/uL (0.0-0.7); #Lymphocytes 2.3 thou/uL (1.20-3.40); #Monocytes 0.7 thou/uL (0.11-0.59); #Neutrophils 5.8 thou/uL (1.40-6.50); %Eosinophils 0.6 % (0.0-10.0); %Lymphocytes 25.3 % (21.0-51.0); %Monocytes 7.7 % (0.0-10.0); %Neutrophils 65.4 % (42.0-75.0); Hemoglobin 13.9 g/dL (14.0-18.0); Mean Corpuscular HGB CONC 33.3 g/dL (32.0-36.0); Mean Corpuscular Hemoglobin 32.8 pg (27.0-31.0); Mean Corpuscular Volume 98.4 fL (78.0-98.0); Mean Platelet Volume 6.6 fL (7.4-10.4); Platelet Count 367 thou/uL (130-400); RBC Distribution Width 13.8 % (11.5-14.5); Red Blood Cell (RBC) Count 4.23 mill/uL (4.70-6.10); White Blood Cell (WBC) Count 8.9 thou/uL (4.8-10.8)
[2021-08-05 02:51] LABS: ALT (SGPT) 17 U/L (8-55); AST (SGOT) 27 U/L (5-34); Albumin 4.8 g/dL (3.5-5.0); Alkaline Phosphatase 72 U/L (40-110); Anion Gap 15 mmol/L (10-20); BUN (Urea Nitrogen) 9 mg/dL (8.4-25.7); Bilirubin, Total 0.5 mg/dL (0.2-1.2); Calc. Creatinine Clearance 0 mL/min (70-130); Calcium 10.3 mg/dL (7.8-10.44); Carbon Dioxide 35 mmol/L (22-29); Chloride 96 mmol/L (98-107); Globulin 3.6 g/dL (2.4-3.5); Glucose 123 mg/dL (70-105); Lipase 16 U/L (8-78); Potassium 3.1 mmol/L (3.5-5.1); Protein, Total 8.4 g/dL (6.0-8.3); Sodium 143 mmol/L (136-145)
== END 2021-08-05 03:06 | disposition home or self-care (01) ==
LOC: ERS 02:10
DX: R10.9 Unspecified abdominal pain (principal); F17.210 Nicotine dependence, cigarettes, uncomplicated
CPT/HCPCS: 80053; 83690; 85025; 93005; 96372; J0500

== ENCOUNTER 2021-09-04 11:05 | Emergency (ER) | payer OTHER ==
[~2021-09-04 11:05] MED LIST changes: +ISOVUE-370 76%-LOCM 1 ML ONE; -Iopamidol-370 76% 500 ML 1 ML ONE
[2021-09-04] MEDS ORDERED: Promethazine 25 MG TAB ONE (12:20)
[2021-09-04] MEDS ORDERED: Acetaminophen 500 MG TAB ONE (12:20)
[2021-09-04 12:33] LABS: #Basophils 0.1 thou/uL (0.0-0.2); #Eosinphils 0.2 thou/uL (0.0-0.7); #Lymphocytes 1.6 thou/uL (1.20-3.40); #Monocytes 0.6 thou/uL (0.11-0.59); #Neutrophils 16.6 thou/uL (1.40-6.50); %Basophils 0.4 % (0.0-1.0); %Eosinophils 1.3 % (0.0-10.0); %Lymphocytes 8.2 % (21.0-51.0); %Monocytes 3.2 % (0.0-10.0); %Neutrophils 86.9 % (42.0-75.0); Hemoglobin 12.2 g/dL (14.0-18.0); Mean Corpuscular HGB CONC 32.8 g/dL (32.0-36.0); Mean Corpuscular Volume 97.5 fL (78.0-98.0); Mean Platelet Volume 6.7 fL (7.4-10.4); Platelet Count 322 thou/uL (130-400); RBC Distribution Width 13.6 % (11.5-14.5); Red Blood Cell (RBC) Count 3.83 mill/uL (4.70-6.10); White Blood Cell (WBC) Count 19.1 thou/uL (4.8-10.8)
[2021-09-04] MEDS ORDERED: Morphine 4 MG/ML VIAL ONE (12:49)
[2021-09-04 13:11] LABS: ALT (SGPT) 9 U/L (8-55); AST (SGOT) 21 U/L (5-34); Albumin 4.1 g/dL (3.5-5.0); Alkaline Phosphatase 55 U/L (40-110); Anion Gap 14 mmol/L (10-20); BUN (Urea Nitrogen) 11 mg/dL (8.4-25.7); Bilirubin, Total 0.7 mg/dL (0.2-1.2); Calc. Creatinine Clearance 0 mL/min (70-130); Calcium 9.5 mg/dL (7.8-10.44); Carbon Dioxide 27 mmol/L (22-29); Chloride 102 mmol/L (98-107); Estimated GFR 74; Globulin 2.7 g/dL (2.4-3.5); Glucose 95 mg/dL (70-105); Lipase 10 U/L (8-78); Potassium 3.4 mmol/L (3.5-5.1); Protein, Total 6.8 g/dL (6.0-8.3); Sodium 140 mmol/L (136-145)
[2021-09-04] MEDS ORDERED: Sodium Chloride 0.9% 1,000 ML IV SCH (13:15)
[2021-09-04] MEDS ORDERED: Acetaminophen 500 MG TAB PO SCH (13:30)
== END 2021-09-04 16:00 | disposition home or self-care (01) ==
LOC: ERS 11:05
DX: K29.70 Gastritis, unspecified, without bleeding (principal); J18.9 Pneumonia, unspecified organism; F17.210 Nicotine dependence, cigarettes, uncomplicated
CPT/HCPCS: 36415; 71045; 74177; 80053; 83690; 84484; 85025; 93005; 96361; 96374; 96375; J1790; J2270; Q0169; Q9966

== ENCOUNTER 2021-10-14 11:22 | Emergency (ER) | payer OTHER ==
[2021-10-14] MEDS ORDERED: Haloperidol Lactate 5 MG/ML VIAL ONE (11:47)
== END 2021-10-14 12:18 | disposition home or self-care (01) ==
LOC: ERS 11:22
DX: R10.9 Unspecified abdominal pain (principal); F14.10 Cocaine abuse, uncomplicated; F12.10 Cannabis abuse, uncomplicated; F17.210 Nicotine dependence, cigarettes, uncomplicated
CPT/HCPCS: 96372; 99284; J1630

== ENCOUNTER 2021-12-11 15:45 | Emergency (ER) | payer OTHER ==
[2021-12-11 16:35] LABS: #Basophils 0.1 thou/uL (0.0-0.2); #Eosinphils 0.1 thou/uL (0.0-0.7); #Lymphocytes 2.5 thou/uL (1.20-3.40); #Monocytes 0.7 thou/uL (0.11-0.59); #Neutrophils 4.3 thou/uL (1.40-6.50); %Basophils 1.2 % (0.0-1.0); %Eosinophils 1.6 % (0.0-10.0); %Lymphocytes 32.1 % (21.0-51.0); %Monocytes 9.2 % (0.0-10.0); %Neutrophils 55.9 % (42.0-75.0); Hemoglobin 12.9 g/dL (14.0-18.0); Mean Corpuscular HGB CONC 31.1 g/dL (32.0-36.0); Mean Corpuscular Hemoglobin 28.8 pg (27.0-31.0); Mean Corpuscular Volume 92.7 fL (78.0-98.0); Mean Platelet Volume 7.3 fL (7.4-10.4); Platelet Count 359 thou/uL (130-400); RBC Distribution Width 15.5 % (11.5-14.5); Red Blood Cell (RBC) Count 4.48 mill/uL (4.70-6.10); White Blood Cell (WBC) Count 7.6 thou/uL (4.8-10.8)
[2021-12-11 17:01] LABS: ALT (SGPT) 12 U/L (8-55); AST (SGOT) 22 U/L (5-34); Albumin 4.9 g/dL (3.5-5.0); Alkaline Phosphatase 70 U/L (40-110); Anion Gap 16 mmol/L (10-20); BUN (Urea Nitrogen) 14 mg/dL (8.4-25.7); Bilirubin, Total 0.6 mg/dL (0.2-1.2); Calc. Creatinine Clearance 0 mL/min (70-130); Calcium 9.9 mg/dL (7.8-10.44); Carbon Dioxide 30 mmol/L (22-29); Chloride 96 mmol/L (98-107); Estimated GFR 69; Globulin 3.4 g/dL (2.4-3.5); Glucose 116 mg/dL (70-105); Lipase 16 U/L (8-78); Potassium 3.8 mmol/L (3.5-5.1); Protein, Total 8.3 g/dL (6.0-8.3); Sodium 138 mmol/L (136-145)
== END 2021-12-11 15:50 | disposition left against medical advice (07) ==
LOC: ERS 15:45
DX: Z53.21 Procedure and treatment not carried out due to patient leaving prior to being seen by health care provider (principal)
CPT/HCPCS: 36415; 80053; 83690; 85025

== ENCOUNTER 2022-01-23 17:05 | Emergency (ER) | payer OTHER | END 2022-01-23 17:40 | disposition home or self-care (01) | LOC: ERS 17:05 | DX: G89.29 Other chronic pain (principal); R10.9 Unspecified abdominal pain | CPT/HCPCS: 99284 ==

== ENCOUNTER 2022-03-11 07:09 | Emergency (ER) | payer OTHER ==
[2022-03-11 08:13] LABS: #Basophils 0.1 thou/uL (0.0-0.2); #Lymphocytes 1.6 thou/uL (1.20-3.40); #Monocytes 0.7 thou/uL (0.11-0.59); #Neutrophils 6.5 thou/uL (1.40-6.50); %Basophils 0.9 % (0.0-1.0); %Eosinophils 0.1 % (0.0-10.0); %Lymphocytes 18.3 % (21.0-51.0); %Monocytes 7.8 % (0.0-10.0); %Neutrophils 72.9 % (42.0-75.0); Hemoglobin 11.5 g/dL (14.0-18.0); Mean Corpuscular HGB CONC 31.7 g/dL (32.0-36.0); Mean Corpuscular Hemoglobin 27.3 pg (27.0-31.0); Mean Corpuscular Volume 86.2 fl (78.0-98.0); Mean Platelet Volume 7.4 fL (7.4-10.4); Platelet Count 360 10x3/uL (130-400); RBC Distribution Width 15.2 % (11.5-14.5); Red Blood Cell (RBC) Count 4.23 mill/uL (4.70-6.10); White Blood Cell (WBC) Count 8.9 10x3/uL (4.8-10.8)
[2022-03-11 08:31] LABS: ALT (SGPT) 15 U/L (8-55); AST (SGOT) 24 U/L (5-34); Albumin 4.9 g/dL (3.5-5.0); Alkaline Phosphatase 62 U/L (40-110); Anion Gap 16 mmol/L (10-20); BUN (Urea Nitrogen) 19 mg/dL (8.4-25.7); Bilirubin, Total 0.6 mg/dL (0.2-1.2); Calc. Creatinine Clearance 0 mL/min (70-130); Calcium 10.4 mg/dL (7.8-10.44); Carbon Dioxide 29 mmol/L (22-29); Chloride 94 mmol/L (98-107); Estimated GFR 65; Globulin 3.6 g/dL (2.4-3.5); Glucose 116 mg/dL (70-105); Lipase 22 U/L (8-78); Potassium 3.3 mmol/L (3.5-5.1); Protein, Total 8.5 g/dL (6.0-8.3); Sodium 136 mmol/L (136-145)
[2022-03-11 09:34] LABS: Bacteria/HPF None Seen HPF (None Seen); Bilirubin Negative (Negative); Blood, Urine Negative (Negative); Clarity Clear (Clear); Glucose, Urine (Dipstick) Normal (Negative); Ketone, Urine 20 mg/dL (Negative); Leukocyte Negative Leu/uL (Negative); Nitrite Negative (Negative); Protein, Urine (Dipstick) 30 mg/dL (Neg-Trace); RBC/HPF 0-3 HPF (0-3); Squamous Epithelial 0-3 HPF (0-3); Urobilinogen Normal mg/dL (Less than 2); WBC/HPF 0-3 HPF (0-3)
[2022-03-11 09:35] LABS: Specific Gravity, Urine 1.064 (1.002-1.036)
== END 2022-03-11 10:17 | disposition home or self-care (01) ==
LOC: ERS 07:09
DX: R10.9 Unspecified abdominal pain (principal); F17.210 Nicotine dependence, cigarettes, uncomplicated
CPT/HCPCS: 36415; 74177; 80053; 81003; 81015; 83605; 83690; 84484; 85025; 93005

== ENCOUNTER 2022-04-19 05:40 | Emergency (ER) | payer OTHER ==
[2022-04-19] MEDS ORDERED: Morphine 4 MG/ML VIAL ONE (07:26)
[2022-04-19] MEDS ORDERED: Ondansetron PF 4 MG/2 ML Vial ONE (07:27)
[2022-04-19] MEDS ORDERED: LORazepam 2 MG/ML SYR.(CARPUJECT) ONE (07:27)
[2022-04-19 07:50] LABS: #Basophils 0.1 thou/uL (0.0-0.2); #Eosinphils 0.2 thou/uL (0.0-0.7); #Lymphocytes 2.2 thou/uL (1.20-3.40); #Monocytes 0.5 thou/uL (0.11-0.59); #Neutrophils 4.4 thou/uL (1.40-6.50); %Basophils 1.3 % (0.0-1.0); %Eosinophils 2.5 % (0.0-10.0); %Monocytes 6.6 % (0.0-10.0); %Neutrophils 59.6 % (42.0-75.0); Hemoglobin 9.1 g/dL (14.0-18.0); Mean Corpuscular HGB CONC 32.7 g/dL (32.0-36.0); Mean Corpuscular Hemoglobin 29.4 pg (27.0-31.0); Mean Platelet Volume 6.7 fL (7.4-10.4); Platelet Count 345 10x3/uL (130-400); RBC Distribution Width 17.8 % (11.5-14.5); Red Blood Cell (RBC) Count 3.09 mill/uL (4.70-6.10); White Blood Cell (WBC) Count 7.4 10x3/uL (4.8-10.8)
[2022-04-19 08:21] LABS: ALT (SGPT) 16 U/L (8-55); AST (SGOT) 30 U/L (5-34); Alkaline Phosphatase 42 U/L (40-110); Anion Gap 13 mmol/L (10-20); BUN (Urea Nitrogen) 16 mg/dL (8.4-25.7); Bilirubin, Total 0.4 mg/dL (0.2-1.2); CK (CPK) 424 U/L (30-200); Calc. Creatinine Clearance 0 mL/min (70-130); Calcium 9.1 mg/dL (7.8-10.44); Carbon Dioxide 27 mmol/L (22-29); Chloride 103 mmol/L (98-107); Estimated GFR 99; Globulin 2.4 g/dL (2.4-3.5); Glucose 95 mg/dL (70-105); Lipase 26 U/L (8-78); Potassium 4.2 mmol/L (3.5-5.1); Protein, Total 6.4 g/dL (6.0-8.3); Sodium 139 mmol/L (136-145)
[2022-04-19] MEDS ORDERED: Pantoprazole 40 MG VIAL ONE (08:47)
== END 2022-04-19 11:45 | disposition home or self-care (01) ==
LOC: ERS 05:40
DX: R10.9 Unspecified abdominal pain (principal); D64.9 Anemia, unspecified; F17.210 Nicotine dependence, cigarettes, uncomplicated
CPT/HCPCS: 36415; 74018; 80053; 82274; 82550; 83690; 84484; 85025; 93005; 96374; 96375; C9113; J2060; J2270; J2405

== ENCOUNTER 2022-05-10 14:03 | Emergency (ER) | payer OTHER ==
[2022-05-10] MEDS ORDERED: Morphine 4 MG/ML VIAL ONE (14:15)
[2022-05-10] MEDS ORDERED: LORazepam 2 MG/ML SYR.(CARPUJECT) ONE (14:15)
[2022-05-10] MEDS ORDERED: Pantoprazole 40 MG VIAL ONE (14:16)
[2022-05-10] MEDS ORDERED: Ondansetron PF 4 MG/2 ML Vial ONE (14:16)
== END 2022-05-10 17:05 | disposition home or self-care (01) ==
LOC: ERS 14:03
DX: K29.70 Gastritis, unspecified, without bleeding (principal); F17.210 Nicotine dependence, cigarettes, uncomplicated
CPT/HCPCS: 96361; 96374; 96375; C9113; J2060; J2270; J2405

== ENCOUNTER 2022-06-24 12:14 | Emergency (ER) | payer OTHER ==
[2022-06-24] MEDS ORDERED: Ketorolac Tromethamine 30 MG/ML VIAL ONE (13:07)
[2022-06-24] MEDS ORDERED: Dicyclomine 20 MG/2 ML VIAL ONE (13:07)
[2022-06-24] MEDS ORDERED: Ondansetron PF 4 MG/2 ML Vial ONE (13:07)
[2022-06-24 13:21] LABS: #Basophils 0.1 thou/uL (0.0-0.2); #Eosinphils 0.2 thou/uL (0.0-0.7); #Lymphocytes 2.5 thou/uL (1.20-3.40); #Monocytes 0.8 thou/uL (0.11-0.59); #Neutrophils 6.1 thou/uL (1.40-6.50); %Basophils 1.1 % (0.0-1.0); %Eosinophils 1.7 % (0.0-10.0); %Lymphocytes 25.7 % (21.0-51.0); %Monocytes 8.2 % (0.0-10.0); %Neutrophils 63.3 % (42.0-75.0); Hemoglobin 10.4 g/dL (14.0-18.0); Mean Corpuscular HGB CONC 31.4 g/dL (32.0-36.0); Mean Corpuscular Hemoglobin 24.8 pg (27.0-31.0); Mean Corpuscular Volume 79.2 fl (78.0-98.0); Mean Platelet Volume 7.4 fL (7.4-10.4); Platelet Count 480 10x3/uL (130-400); RBC Distribution Width 18.2 % (11.5-14.5); Red Blood Cell (RBC) Count 4.18 mill/uL (4.70-6.10); White Blood Cell (WBC) Count 9.7 10x3/uL (4.8-10.8)
[2022-06-24 13:51] LABS: ALT (SGPT) 14 U/L (8-55); AST (SGOT) 22 U/L (5-34); Albumin 4.9 g/dL (3.5-5.0); Alkaline Phosphatase 67 U/L (40-110); Anion Gap 15 mmol/L (10-20); BUN (Urea Nitrogen) 16 mg/dL (8.4-25.7); Bilirubin, Total 0.3 mg/dL (0.2-1.2); Calc. Creatinine Clearance 0 mL/min (70-130); Calcium 10.3 mg/dL (7.8-10.44); Carbon Dioxide 27 mmol/L (22-29); Chloride 103 mmol/L (98-107); Estimated GFR 75; Globulin 3.8 g/dL (2.4-3.5); Glucose 114 mg/dL (70-105); Lipase 23 U/L (8-78); Potassium 3.6 mmol/L (3.5-5.1); Protein, Total 8.7 g/dL (6.0-8.3); Sodium 141 mmol/L (136-145)
[2022-06-24] MEDS ORDERED: Metoclopramide HCl 10 MG/2 ML VIAL ONE (14:11)
[2022-06-24] MEDS ORDERED: diphenhydrAMINE 50 MG/ML VIAL ONE (14:33)
== END 2022-06-24 17:43 | disposition home or self-care (01) ==
LOC: ERS 12:14
DX: R10.9 Unspecified abdominal pain (principal); F17.210 Nicotine dependence, cigarettes, uncomplicated
CPT/HCPCS: 36415; 80053; 83605; 83690; 85025; 93005; 96372; 96374; 96375; J1200; J1885; J2405; J2765

== ENCOUNTER 2022-09-21 23:45 | Emergency (ER) | payer OTHER ==
[2022-09-22] MEDS ORDERED: Dicyclomine 20 MG/2 ML VIAL ONE (00:11)
[2022-09-22] MEDS ORDERED: Ondansetron PF 4 MG/2 ML Vial ONE (00:11)
[2022-09-22] MEDS ORDERED: Ketorolac Tromethamine 30 MG/ML VIAL ONE (00:11)
== END 2022-09-21 23:59 | disposition short-term general hospital (02) ==
LOC: ERS 23:45
DX: R10.9 Unspecified abdominal pain (principal); G89.29 Other chronic pain; F17.210 Nicotine dependence, cigarettes, uncomplicated
CPT/HCPCS: 96372; 96374; 96375; J1885; J2405

== ENCOUNTER 2023-03-03 19:14 | Emergency (ER) | payer OTHER ==
[2023-03-03] MEDS ORDERED: Ondansetron PF 4 MG/2 ML Vial ONE (19:39)
[2023-03-03 20:31] LABS: #Basophils 0.1 thou/uL (0.0-0.2); #Eosinphils 0.1 thou/uL (0.0-0.7); #Monocytes 0.8 thou/uL (0.11-0.59); %Basophils 0.8 % (0.0-1.0); %Eosinophils 1.3 % (0.0-10.0); %Lymphocytes 27.4 % (21.0-51.0); %Neutrophils 62.1 % (42.0-75.0); Hematocrit 38.2 % (42.0-52.0); Hemoglobin 12.5 g/dL (14.0-18.0); Mean Corpuscular HGB CONC 32.7 g/dL (32.0-36.0); Mean Corpuscular Hemoglobin 30.9 pg (27.0-31.0); Mean Corpuscular Volume 94.3 fl (78.0-98.0); Mean Platelet Volume 9.5 fL (7.4-10.4); Platelet Count 296 10x3/uL (130-400); Red Blood Cell (RBC) Count 4.05 mill/uL (4.70-6.10); White Blood Cell (WBC) Count 9.7 10x3/uL (4.8-10.8)
[2023-03-03] MEDS ORDERED: Haloperidol Lactate 5 MG/ML VIAL ONE (20:40)
[2023-03-03 20:59] LABS: Acetaminophen Less than 10 mcg/mL (10.0-30.0); Alcohol Less than 10.0 mg/dL (Less than 10); Lipase 24 U/L (8-78); Salicylate Less than 8.0 mg/dL (15.0-30.0)
[2023-03-03 21:00] LABS: ALT (SGPT) 13 U/L (8-55); AST (SGOT) 21 U/L (5-34); Albumin 4.4 g/dL (3.5-5.0); Alkaline Phosphatase 60 U/L (40-110); Anion Gap 16 mmol/L (10-20); BUN (Urea Nitrogen) 7 mg/dL (8.4-25.7); Bilirubin, Total 0.4 mg/dL (0.2-1.2); Calc. Creatinine Clearance 0 mL/min (70-130); Calcium 9.2 mg/dL (7.8-10.44); Carbon Dioxide 25 mmol/L (22-29); Chloride 103 mmol/L (98-107); Estimated GFR 101; Globulin 3.3 g/dL (2.4-3.5); Glucose 111 mg/dL (70-105); Potassium 3.5 mmol/L (3.5-5.1); Protein, Total 7.7 g/dL (6.0-8.3); Sodium 140 mmol/L (136-145)
== END 2023-03-03 22:36 | disposition home or self-care (01) ==
LOC: ERS 19:14
DX: R11.15 Cyclical vomiting syndrome unrelated to migraine (principal); F19.10 Other psychoactive substance abuse, uncomplicated; F17.210 Nicotine dependence, cigarettes, uncomplicated
CPT/HCPCS: 36415; 80053; 80307; 83690; 85025; 93005; 96374; 96375; J1630; J2405

== ENCOUNTER 2023-04-18 21:01 | Emergency (ER) | payer OTHER ==
[2023-04-18 21:42] LABS: Hematocrit 35.9 % (42.0-52.0); Hemoglobin 11.6 g/dL (14.0-18.0); Manual Diff?? YES; Mean Corpuscular HGB CONC 32.3 g/dL (32.0-36.0); Mean Corpuscular Hemoglobin 30.4 pg (27.0-31.0); Mean Corpuscular Volume 94.2 fl (78.0-98.0); Mean Platelet Volume 9.1 fL (7.4-10.4); Platelet Count 414 10x3/uL (130-400); RBC Distribution Width 15.5 % (11.5-14.5); Red Blood Cell (RBC) Count 3.81 mill/uL (4.70-6.10); White Blood Cell (WBC) Count 6.2 10x3/uL (4.8-10.8)
[2023-04-18 21:43] LABS: Delete Auto Diff?? YES
[2023-04-18 22:03] LABS: Anisocytosis SLIGHT = 6-15 cells HPF (0-5); Band 5 % (5-11); CellaVision Operator ID LAB.CLH1; Eosinophils 2 % (0-10); Hypochromia SLIGHT = 6-15 cells HPF (0-5); Lymphocytes 30 % (21-51); Macrocytosis SLIGHT = 6-15 cells HPF (0-5); Monocytes 9 % (0-10); Neutrophil 52 % (42-75); Platelet Adequacy Comment Platelets Increased; Polychromasia SLIGHT = 2-3 cells HPF (0-2); Reactive Lymphocytes 2 % (0-10); Target Cells SLIGHT = 2-5 cells HPF (0-1); Total Cell Count 100
[2023-04-18 22:06] LABS: ALT (SGPT) 13 U/L (8-55); AST (SGOT) 17 U/L (5-34); Albumin 4.4 g/dL (3.5-5.0); Alkaline Phosphatase 69 U/L (40-110); Anion Gap 13 mmol/L (10-20); BUN (Urea Nitrogen) 13 mg/dL (8.4-25.7); Bilirubin, Total 0.6 mg/dL (0.2-1.2); Calc. Creatinine Clearance 0 mL/min (70-130); Calcium 9.6 mg/dL (7.8-10.44); Carbon Dioxide 23 mmol/L (22-29); Chloride 110 mmol/L (98-107); Estimated GFR 99; Globulin 3.3 g/dL (2.4-3.5); Glucose 91 mg/dL (70-105); Lipase 16 U/L (8-78); Potassium 3.3 mmol/L (3.5-5.1); Protein, Total 7.7 g/dL (6.0-8.3); Sodium 143 mmol/L (136-145)
[2023-04-18 22:14] LABS: Troponin I Less than 0.010 ng/mL (< 0.028)
[2023-04-19 01:41] LABS: Troponin I Less than 0.010 ng/mL (< 0.028)
[2023-04-19] MEDS ORDERED: Iopamidol-370 76% 500 ML MDV (1 ML CHARGE) ONE (12:19)
== END 2023-04-19 05:32 | disposition home or self-care (01) ==
LOC: ERS 21:01
DX: R10.13 Epigastric pain (principal); F17.210 Nicotine dependence, cigarettes, uncomplicated
CPT/HCPCS: 36415; 71045; 71275; 74174; 80053; 83690; 83735; 84484; 85025; 85379; 93005

== ENCOUNTER 2023-04-19 18:11 | Emergency (ER) | payer OTHER ==
[2023-04-19 19:40] LABS: #Basophils 0.1 thou/uL (0.0-0.2); #Eosinphils 0.1 thou/uL (0.0-0.7); #Monocytes 0.5 thou/uL (0.11-0.59); #Neutrophils 3.4 thou/uL (1.40-6.50); %Eosinophils 0.8 % (0.0-10.0); %Lymphocytes 31.4 % (21.0-51.0); %Monocytes 9.1 % (0.0-10.0); %Neutrophils 57.5 % (42.0-75.0); Hematocrit 35.3 % (42.0-52.0); Hemoglobin 11.5 g/dL (14.0-18.0); Mean Corpuscular HGB CONC 32.6 g/dL (32.0-36.0); Mean Corpuscular Hemoglobin 30.8 pg (27.0-31.0); Mean Corpuscular Volume 94.6 fl (78.0-98.0); Mean Platelet Volume 9.3 fL (7.4-10.4); Platelet Count 438 10x3/uL (130-400); RBC Distribution Width 15.6 % (11.5-14.5); Red Blood Cell (RBC) Count 3.73 mill/uL (4.70-6.10); White Blood Cell (WBC) Count 5.9 10x3/uL (4.8-10.8)
[2023-04-19] MEDS ORDERED: Sucralfate 1 GM/10 ML UDCUP ONE (19:56)
[2023-04-19] MEDS ORDERED: Famotidine 20 MG TAB ONE (19:56)
[2023-04-19] MEDS ORDERED: Promethazine 25 MG TAB ONE (20:06)
[2023-04-19 20:09] LABS: ALT (SGPT) 12 U/L (8-55); AST (SGOT) 17 U/L (5-34); Albumin 4.4 g/dL (3.5-5.0); Alkaline Phosphatase 66 U/L (40-110); Anion Gap 13 mmol/L (10-20); BUN (Urea Nitrogen) 15 mg/dL (8.4-25.7); Bilirubin, Total 0.6 mg/dL (0.2-1.2); Calc. Creatinine Clearance 0 mL/min (70-130); Calcium 9.3 mg/dL (7.8-10.44); Carbon Dioxide 26 mmol/L (22-29); Chloride 104 mmol/L (98-107); Estimated GFR 84; Globulin 3.2 g/dL (2.4-3.5); Glucose 92 mg/dL (70-105); Potassium 3.3 mmol/L (3.5-5.1); Protein, Total 7.6 g/dL (6.0-8.3); Sodium 140 mmol/L (136-145)
[2023-04-19] MEDS ORDERED: Lidocaine 2% Viscous 10 mL, Alum & Magn 30 mL SSW SCH (20:15)
[2023-04-19] MEDS ORDERED: Promethazine HCl 25 MG in Sodium Chloride 0.9% 50 ML IVPB SCH (20:15)
== END 2023-04-19 21:00 | disposition home or self-care (01) ==
LOC: ERS 18:11
DX: R10.84 Generalized abdominal pain (principal); F17.210 Nicotine dependence, cigarettes, uncomplicated; F31.9 Bipolar disorder, unspecified; Z59.00 Homelessness unspecified; F20.9 Schizophrenia, unspecified; Z55.6 Problems related to health literacy; Z75.3 Unavailability and inaccessibility of health-care facilities
CPT/HCPCS: 36415; 71045; 71275; 74174; 80053; 83690; 83735; 84484; 85025; 85379; 93005; 99284; J2550; Q0169

== ENCOUNTER 2023-04-26 10:05 | Emergency (ER) | payer OTHER ==
[2023-04-26 10:44] LABS: #Basophils 0.1 thou/uL (0.0-0.2); #Eosinphils 0.1 thou/uL (0.0-0.7); #Monocytes 0.7 thou/uL (0.11-0.59); %Basophils 1.1 % (0.0-1.0); %Lymphocytes 29.5 % (21.0-51.0); %Monocytes 7.2 % (0.0-10.0); %Neutrophils 60.9 % (42.0-75.0); Mean Corpuscular HGB CONC 31.7 g/dL (32.0-36.0); Mean Corpuscular Hemoglobin 30.6 pg (27.0-31.0); Mean Corpuscular Volume 96.5 fl (78.0-98.0); Mean Platelet Volume 9.4 fL (7.4-10.4); Platelet Count 443 10x3/uL (130-400); RBC Distribution Width 15.5 % (11.5-14.5); Red Blood Cell (RBC) Count 4.25 mill/uL (4.70-6.10); White Blood Cell (WBC) Count 9.8 10x3/uL (4.8-10.8)
[2023-04-26 11:19] LABS: ALT (SGPT) 11 U/L (8-55); Albumin 4.7 g/dL (3.5-5.0); Alkaline Phosphatase 64 U/L (40-110); Anion Gap 14 mmol/L (10-20); BUN (Urea Nitrogen) 11 mg/dL (8.4-25.7); Bilirubin, Total 0.8 mg/dL (0.2-1.2); Calc. Creatinine Clearance 0 mL/min (70-130); Calcium 9.6 mg/dL (7.8-10.44); Carbon Dioxide 24 mmol/L (22-29); Chloride 105 mmol/L (98-107); Estimated GFR 87; Globulin 3.3 g/dL (2.4-3.5); Glucose 106 mg/dL (70-105); Lipase 20 U/L (8-78); Potassium 3.4 mmol/L (3.5-5.1); Sodium 140 mmol/L (136-145)
[2023-04-26 11:29] LABS: AST (SGOT) 21 U/L (5-34)
== END 2023-04-26 12:50 | disposition home or self-care (01) ==
LOC: ERS 10:05
DX: R10.84 Generalized abdominal pain (principal); Z55.6 Problems related to health literacy
CPT/HCPCS: 36415; 80053; 83690; 85025; 99284

== ENCOUNTER 2024-11-27 06:39 | Emergency (ER) | payer OTHER ==
[2024-11-27] MEDS ORDERED: Droperidol 5 MG/2 ML VIAL ONE (07:19)
[2024-11-27 08:11] LABS: #Basophils 0.08 10x3/uL (0.0-0.2); #Eosinophils Less than 0.03 10x3/uL (0.0-0.7); #Monocytes 0.89 10x3/uL (0.11-0.59); #Neutrophils 9.39 10x3/uL (1.40-6.50); %Basophils 0.7 % (0.0-1.0); %Eosinophils 0.2 % (0.0-10.0); %Lymphocytes 14.4 % (21.0-51.0); %Monocytes 7.3 % (0.0-10.0); %Neutrophils 77.1 % (42.0-75.0); Hematocrit 44.8 % (42.0-52.0); Hemoglobin 15.0 g/dL (14.0-18.0); Mean Corpuscular Hemoglobin 32.4 pg (27.0-31.0); Mean Corpuscular Volume 96.8 fL (78.0-98.0); Platelet Count 290 10x3/uL (130-400); Red Blood Cell (RBC) Count 4.63 mill/uL (4.70-6.10); White Blood Cell (WBC) Count 12.17 10x3/uL (4.8-10.8)
[2024-11-27] MEDS ORDERED: Ketorolac Tromethamine 30 MG (1 mL) VIAL ONE (08:21)
[2024-11-27] MEDS ORDERED: Famotidine/PF 20 mg/2ml Vial ONE (08:21)
[2024-11-27 08:26] LABS: ALT (SGPT) 13 U/L (Less than 45); AST (SGOT) 33 U/L (11-34); Albumin 4.8 g/dL (3.1-4.5); Alkaline Phosphatase 75 U/L (40-110); Anion Gap 18 mmol/L (10-20); BUN (Urea Nitrogen) 10 mg/dL (8.4-25.7); Bilirubin, Total 0.7 mg/dL (0.3-1.2); Calc. Creatinine Clearance 0 mL/min (70-130); Calcium 9.9 mg/dL (7.8-10.44); Carbon Dioxide 23 mmol/L (23-31); Chloride 103 mmol/L (98-107); Globulin 4.1 g/dL (2.4-3.5); Glucose 106 mg/dL (80-115); Lipase 11 U/L (8-78); Potassium 4.3 mmol/L (3.5-5.1); Sodium 140 mmol/L (136-145)
[2024-11-27 09:30] LABS: Bacteria/HPF None Seen HPF (None Seen); CAUTI Indications for Culture Alt mental st,lethar; Glucose, Urine (Dipstick) Normal (Negative); Leukocyte Negative Leu/uL (Negative); Protein, Urine (Dipstick) Negative (Neg-Trace); RBC/HPF 0-3 HPF (0-3); Specific Gravity, Urine 1.023 (1.002-1.036); WBC/HPF 0-3 HPF (0-3)
[2024-11-27 09:46] LABS: Urine Culture Reflex No No
[2024-11-27] MEDS ORDERED: Iopamidol-370 76% 500 ML MDV (1 ML CHARGE) ONE (13:07)
== END 2024-11-27 09:34 ==
LOC: ERS 06:39 → EEVIPCON 06:39 → ERS 09:34
DX: K29.70 Gastritis, unspecified, without bleeding (principal); F17.210 Nicotine dependence, cigarettes, uncomplicated
CPT/HCPCS: 74177; 80053; 81001; 83690; 85025; 96361; 96372; 96374; 96375; J1790; J1885